=== PATIENT | male | born 1965 | race Caucasian/White ===

== ENCOUNTER 2022-10-09 14:48 | Inpatient (IN) | payer BC, OTHER ==
[2022-10-09 14:53] VITALS: BMI 25.1
[2022-10-09 18:38] LABS: BASO % 0.2 % (0-2.0); EOS % 0.1 % (0-4.5); HEMATOCRIT 29.9 % (35.4-49); HEMOGLOBIN 9.2 GM/dL (11.7-16.9); LYMPH % 17.7 % (8-40); MCHC 30.7 g/dl (32.0-35.9); MEAN CELL VOLUME 63.4 fl (80-96); MEAN PLT VOLUME 8.1 fl (7.5-11.1); MONO % 11.3 % (3.8-10.2); NEUT % 70.7 % (42.8-82.8); PLATELET COUNT 470 10^3/uL (134-434); RBC 4.72 M/mm3 (4.00-5.60); RDW 20.5 % (11.9-15.9); WHITE BLOOD COUNT 5.4 K/mm3 (4.0-10.0)
[2022-10-09 18:39] LABS: MCH 19.5 pg (25.7-33.7)
[2022-10-09 18:57] LABS: CALCIUM 8.4 mg/dL (8.5-10.1)
[2022-10-09 18:58] LABS: ALBUMIN 2.8 g/dl (3.4-5.0); BLOOD UREA NITROGEN 25.6 mg/dL (7-18)
[2022-10-09 19:01] LABS: CREATININE 0.8 mg/dL (0.55-1.3)
[2022-10-09 19:02] LABS: TOT PROT 6.1 g/dl (6.4-8.2)
[2022-10-09 19:03] LABS: BILIRUBIN,TOTAL 0.4 mg/dL (0.2-1)
[2022-10-09 20:00] LABS: ANISOCYTOSIS 2+; MACROCYTOSIS 1+; OVALOCYTE 1+
[2022-10-09 22:01] LABS: RETICULOCYTES 0.87 % (0.5-1.5)
[2022-10-09] MEDS ORDERED: METOPROLOL TARTRATE 5 MG/5 ML VIAL IVPUSH ONE (23:51)
[2022-10-09] MEDS ORDERED: metoPROLOL SUCCINATE 25 MG TAB.SR.24H (FP) PO ONE (23:52)
[2022-10-10] MEDS ORDERED: SODIUM CHLORIDE 1,000 ML IV SCH ×2 (00:45→19:03)
[2022-10-10] MEDS ORDERED: METOPROLOL TARTRATE 5 MG/5 ML VIAL IVPUSH ONE (03:17)
[2022-10-10 06:22] LABS: BASO % 0.5 % (0-2.0); EOS % 0.1 % (0-4.5); HEMATOCRIT 28.7 % (35.4-49); HEMOGLOBIN 8.9 GM/dL (11.7-16.9); LYMPH % 15.1 % (8-40); MEAN PLT VOLUME 7.7 fl (7.5-11.1); MONO % 11.9 % (3.8-10.2); NEUT % 72.4 % (42.8-82.8); PLATELET COUNT 456 10^3/uL (134-434); RBC 4.56 M/mm3 (4.00-5.60); RDW 20.4 % (11.9-15.9)
[2022-10-10 06:27] LABS: MCH 19.5 pg (25.7-33.7)
[2022-10-10 06:49] LABS: CALCIUM 7.9 mg/dL (8.5-10.1)
[2022-10-10 06:50] LABS: ALBUMIN 2.5 g/dl (3.4-5.0); BLOOD UREA NITROGEN 26.9 mg/dL (7-18); MAGNESIUM 1.9 mg/dL (1.8-2.4)
[2022-10-10 06:52] LABS: CREATININE 0.8 mg/dL (0.55-1.3)
[2022-10-10 06:53] LABS: PHOSPHOROUS 3.4 mg/dL (2.5-4.9)
[2022-10-10 06:54] LABS: BILIRUBIN,TOTAL 0.4 mg/dL (0.2-1); TOT PROT 5.6 g/dl (6.4-8.2)
[2022-10-10 09:01] LABS: PHOSPHOROUS 3.2 mg/dL (2.5-4.9)
[2022-10-10 09:56] LABS: ARTERIAL BLD GAS O2 SATURATION 97.5 % (95-98); ARTERIAL BLOOD GAS BASE EXCESS -2.7 mmol/L (-2-2); ARTERIAL BLOOD GAS PO2 89.5 mmHg (80-100); ARTERIAL BLOOD GAS pH 7.477 (7.350-7.450)
[2022-10-10 09:59] LABS: ALLENS TEST POSITIVE
[2022-10-10] MEDS ORDERED: metoPROLOL SUCCINATE 25 MG TAB.SR.24H (FP) PO ONE (11:31)
[2022-10-10] MEDS: metoPROLOL SUCCINATE 25 MG TAB.SR.24H (FP) PO SCH ×2 (11:57→21:35)
[2022-10-10 14:02] LABS: EPI CELLS 8 /uL (0-25.1); HYALINE CASTS 6 /uL (0-3.1); PH,URINE 5.5 (5.0-8.0); URINE APPEARANCE TURBID; URINE BACTERIA 9 /uL (0-1359); URINE BILIRUBIN NEGATIVE (NEGATIVE); URINE COLOR DK YELLOW; URINE GLUCOSE (UA) NEGATIVE (NEGATIVE); URINE KETONE 1+ (NEGATIVE); URINE LEUK ESTERASE NEGATIVE (NEGATIVE); URINE NITRITE NEGATIVE (NEGATIVE); URINE PROTEIN 1+ (NEGATIVE); URINE WBC 19 /uL (0-25.8)
[2022-10-10 14:34] LABS: URINE CRYSTALS CA OXALATE FEW /hpf; URINE RBC 107.7 /uL (0-23.9)
[2022-10-10] MEDS ORDERED: ACETAMINOPHEN 1000 MG/100 ML BAG IVPB ONE (21:16)
[2022-10-10] MEDS: PANTOPRAZOLE SODIUM 40 MG VIAL IVPUSH SCH (21:36)
[2022-10-10] MEDS: PIPERACILLIN/TAZOB 4.5 GM 4.5 GM in DEXTROSE 5%-WATER 100 ML IVPB SCH (21:37)
[2022-10-11] MEDS: PIPERACILLIN/TAZOB 4.5 GM 4.5 GM in DEXTROSE 5%-WATER 100 ML IVPB SCH ×3 (02:41→18:58)
[2022-10-11 08:27] LABS: HEMATOCRIT 28.5 % (35.4-49); HEMOGLOBIN 8.8 GM/dL (11.7-16.9); MCHC 30.9 g/dl (32.0-35.9); MEAN CELL VOLUME 63.9 fl (80-96); MEAN PLT VOLUME 8.1 fl (7.5-11.1); PLATELET COUNT 431 10^3/uL (134-434); RBC 4.45 M/mm3 (4.00-5.60); RDW 20.4 % (11.9-15.9); WHITE BLOOD COUNT 5.8 K/mm3 (4.0-10.0)
[2022-10-11 08:31] LABS: ALBUMIN 2.4 g/dl (3.4-5.0); BLOOD UREA NITROGEN 25.5 mg/dL (7-18); CALCIUM 8.1 mg/dL (8.5-10.1)
[2022-10-11 08:35] LABS: BILIRUBIN,TOTAL 0.5 mg/dL (0.2-1); TOT PROT 5.2 g/dl (6.4-8.2)
[2022-10-11 08:38] LABS: MCH 19.7 pg (25.7-33.7)
[2022-10-11] MEDS: PANTOPRAZOLE SODIUM 40 MG VIAL IVPUSH SCH (09:16)
[2022-10-11] MEDS ORDERED: MINERAL OIL ENEMA 133 ML ENEMA RC ONE (09:19)
[2022-10-11] MEDS: D5-NS + 20 MEQ KCL - 20 MEQ/1,000 ML INFUS.BAG IV SCH (09:24)
[2022-10-11] MEDS ORDERED: metoPROLOL SUCCINATE 25 MG TAB.SR.24H (FP) PO ONE (17:37)
[2022-10-11] MEDS ORDERED: HEPARIN NA (PORCINE) 5,000 UNITS/ML 1ML VIAL IVPUSH PRN (17:37)
[2022-10-11] MEDS ORDERED: metoPROLOL SUCCINATE 25 MG TAB.SR.24H (FP) PO SCH (17:42)
[2022-10-11] MEDS ORDERED: METOPROLOL TARTRATE 5 MG/5 ML VIAL IVPUSH PRN (17:50)
[2022-10-11] MEDS ORDERED: PIPERACILLIN/TAZOBACTAM 4.5 GM VIAL IVPB ONE (17:50)
[2022-10-11] MEDS ORDERED: IRON SUCROSE INJECTION 100 MG in SODIUM CHLORIDE 95 ML IVPB ONE (17:51)
[2022-10-11] MEDS: HEPARIN - 25,000 UNIT in SODIUM CHLORIDE 495 ML IV SCH (20:03)
[2022-10-11] MEDS: HEPARIN NA (PORCINE) 5,000 UNITS/ML 1ML VIAL IVPUSH PRN (20:15)
[2022-10-12] MEDS: PIPERACILLIN/TAZOB 4.5 GM 4.5 GM in DEXTROSE 5%-WATER 100 ML IVPB SCH ×2 (03:53→09:23)
[2022-10-12] MEDS: HEPARIN NA (PORCINE) 5,000 UNITS/ML 1ML VIAL IVPUSH PRN (04:30)
[2022-10-12] MEDS: HEPARIN - 25,000 UNIT in SODIUM CHLORIDE 495 ML IV SCH (04:30)
[2022-10-12 08:26] LABS: HEMOGLOBIN 9.6 GM/dL (11.7-16.9); MCHC 30.1 g/dl (32.0-35.9); MEAN CELL VOLUME 64.5 fl (80-96); MEAN PLT VOLUME 8.6 fl (7.5-11.1); PLATELET COUNT 506 10^3/uL (134-434); RBC 4.97 M/mm3 (4.00-5.60); WHITE BLOOD COUNT 6.9 K/mm3 (4.0-10.0)
[2022-10-12 08:44] LABS: MCH 19.4 pg (25.7-33.7)
[2022-10-12 09:01] LABS: ALBUMIN 2.6 g/dl (3.4-5.0)
[2022-10-12 09:02] LABS: BLOOD UREA NITROGEN 23.4 mg/dL (7-18)
[2022-10-12 09:04] LABS: PHOSPHOROUS 3.7 mg/dL (2.5-4.9)
[2022-10-12 09:05] LABS: CREATININE 1.2 mg/dL (0.55-1.3)
[2022-10-12 09:06] LABS: BILIRUBIN,TOTAL 0.5 mg/dL (0.2-1); TOT PROT 5.9 g/dl (6.4-8.2)
[2022-10-12] MEDS: PANTOPRAZOLE SODIUM 40 MG VIAL IVPUSH SCH (09:18)
[2022-10-12] MEDS ORDERED: DEXAMETHASONE SOD PHOSPHATE 4 MG/1 ML VIAL ONE ×2 (16:14→16:34)
[2022-10-12] MEDS ORDERED: LIDOCAINE HCL/PF 2% SDV 5ML VIAL ONE (16:14)
[2022-10-12] MEDS ORDERED: PROPOFOL 20 ML ONE (16:14)
[2022-10-12] MEDS ORDERED: ROCURONIUM BROMIDE 50 MG/5 ML SYRINGE ONE ×3 (16:14→18:35)
[2022-10-12] MEDS ORDERED: ONDANSETRON 4 MG/2 ML VIAL ONE (16:14)
[2022-10-12] MEDS ORDERED: HEPARIN NA (PORCINE) 5,000 UNITS/ML 1ML VIAL ONE (16:19)
[2022-10-12] MEDS ORDERED: PIPERACILLIN/TAZOBACTAM 3.375 GM VIAL IVPB ONE ×3 (16:20→16:32)
[2022-10-12] MEDS ORDERED: HEPARIN NA (PORCINE) 5,000 UNITS/ML 1ML VIAL SQ ONE (16:26)
[2022-10-12] MEDS ORDERED: ALBUMIN HUMAN 5% 250 ML IV SOLUTION IV ONE (16:30)
[2022-10-12] MEDS ORDERED: MIDAZOLAM HCL 2 MG/2 ML SINGLE DOSE VIAL ONE ×3 (16:31→19:13)
[2022-10-12] MEDS ORDERED: PHENYLEPHRINE HCL 10 MG/1 ML SINGLE DOSE VIAL ONE ×2 (16:32→17:13)
[2022-10-12] MEDS ORDERED: HYDROmorphone HCl 2 MG/ML VIAL ONE (16:34)
[2022-10-12] MEDS ORDERED: ALBUMIN HUMAN 5% 500 ML IV SOLUTION IV ONE (17:00)
[2022-10-12] MEDS ORDERED: CALCIUM CHLORIDE 1 GM/10 ML *DISP.SYRIN ONE (18:24)
[2022-10-12] MEDS ORDERED: FENTANYL NS IVPB 500 MCG/100 ML BAG IVPB ONE (20:09)
[2022-10-12] MEDS ORDERED: LACTATED RINGERS SOLUTION 1,000 ML/1,000 ML INFUS.BAG IV SCH (20:15)
[2022-10-12] MEDS ORDERED: FENTANYL NS IVPB 500 MCG/100 ML BAG IVPB SCH ×2 (20:30→21:30)
[2022-10-12] MEDS: PHENYLEPHRINE NS PREMIX 50,000 MCG/500 ML BAG IVPB SCH (20:30)
[2022-10-12] MEDS ORDERED: METOPROLOL TARTRATE 5 MG/5 ML VIAL IVPUSH PRN (20:43)
[2022-10-12 20:50] LABS: BASO % 0.1 % (0-2.0); EOS % 0.1 % (0-4.5); HEMOGLOBIN 9.6 GM/dL (11.7-16.9); LYMPH % 9.2 % (8-40); MCH 21.8 pg (25.7-33.7); MCHC 31.8 g/dl (32.0-35.9); MEAN CELL VOLUME 68.6 fl (80-96); MEAN PLT VOLUME 7.5 fl (7.5-11.1); MONO % 4.3 % (3.8-10.2); NEUT % 86.3 % (42.8-82.8); PLATELET COUNT 370 10^3/uL (134-434); RBC 4.37 M/mm3 (4.00-5.60); WHITE BLOOD COUNT 2.7 K/mm3 (4.0-10.0)
[2022-10-12] MEDS ORDERED: PROPOFOL 1,000,000 MCG/100 ML VIAL ONE (20:57)
[2022-10-12] MEDS ORDERED: PIPERACILLIN/TAZOB 4.5 GM 4.5 GM in DEXTROSE 5%-WATER 100 ML IVPB SCH (21:00)
[2022-10-12] MEDS ORDERED: PROPOFOL 1,000,000 MCG/100 ML VIAL IVPB SCH (21:15)
[2022-10-12 21:21] LABS: ANISOCYTOSIS 3+; MACROCYTOSIS 0; OVALOCYTE 1+; TARGET CELLS 1+
[2022-10-12] MEDS ORDERED: CHLORHEXIDINE GLUCONATE 4% CLEANSER FOR DECOLONIZATION TP SCH (22:00)
[2022-10-12] MEDS ORDERED: MUPIROCIN 2% TOPICAL OINTMENT FOR DECOLONIZATION NS SCH (22:00)
[2022-10-12 22:15] LABS: CALCIUM 7.2 mg/dL (8.5-10.1)
[2022-10-12 22:16] LABS: BLOOD UREA NITROGEN 14.9 mg/dL (7-18)
[2022-10-12 22:19] LABS: CREATININE 0.6 mg/dL (0.55-1.3)
[2022-10-12] MEDS: MUPIROCIN 2% TOPICAL OINTMENT FOR DECOLONIZATION NS SCH (22:30)
[2022-10-12] MEDS: CHLORHEXIDINE GLUCONATE 4% CLEANSER FOR DECOLONIZATION TP SCH (22:30)
[2022-10-12] MEDS: LACTATED RINGERS SOLUTION 1,000 ML IV SCH (22:30)
[2022-10-13] MEDS: PIPERACILLIN/TAZOB 4.5 GM 4.5 GM in DEXTROSE 5%-WATER 100 ML IVPB SCH ×4 (03:07→16:59)
[2022-10-13 07:29] LABS: HEMATOCRIT 37.4 % (35.4-49); HEMOGLOBIN 11.9 GM/dL (11.7-16.9); MCH 21.6 pg (25.7-33.7); MCHC 31.7 g/dl (32.0-35.9); MEAN CELL VOLUME 67.9 fl (80-96); MEAN PLT VOLUME 8.8 fl (7.5-11.1); PLATELET COUNT 428 10^3/uL (134-434); RDW 23.8 % (11.9-15.9); WHITE BLOOD COUNT 2.6 K/mm3 (4.0-10.0)
[2022-10-13 07:41] LABS: ARTERIAL BLD GAS O2 SATURATION 98.8 % (95-98); ARTERIAL BLOOD GAS BASE EXCESS -4.5 mmol/L (-2-2); ARTERIAL BLOOD GAS PO2 139.1 mmHg (80-100); ARTERIAL BLOOD GAS pH 7.393 (7.350-7.450)
[2022-10-13 07:43] LABS: INR 1.38 (0.83-1.09)
[2022-10-13 07:45] LABS: VENT MODE A/C; VENT RATE 12
[2022-10-13 07:48] LABS: ACTIVATED PTT 29.5 SECONDS (25.2-36.5)
[2022-10-13 07:51] LABS: CALCIUM 7.4 mg/dL (8.5-10.1)
[2022-10-13 07:52] LABS: MAGNESIUM 1.5 mg/dL (1.8-2.4)
[2022-10-13 07:54] LABS: BLOOD UREA NITROGEN 16.7 mg/dL (7-18)
[2022-10-13 07:55] LABS: CREATININE 0.8 mg/dL (0.55-1.3); PHOSPHOROUS 3.9 mg/dL (2.5-4.9)
[2022-10-13] MEDS ORDERED: MAGNESIUM 1GM/D5W - 1 GM/100 ML IVPB IVPB ONE (09:15)
[2022-10-13] MEDS: HEPARIN NA (PORCINE) 5,000 UNITS/ML 1ML VIAL SQ SCH ×2 (09:49→21:54)
[2022-10-13] MEDS: MUPIROCIN 2% TOPICAL OINTMENT FOR DECOLONIZATION NS SCH ×2 (09:49→21:54)
[2022-10-13] MEDS: PANTOPRAZOLE SODIUM 40 MG VIAL IVPUSH SCH (09:49)
[2022-10-13] MEDS ORDERED: ONDANSETRON 4 MG/2 ML VIAL IVPUSH PRN (11:03)
[2022-10-13] MEDS ORDERED: LACTATED RINGERS SOLUTION 1000 ML INFUS.BAG IV ONE (11:37)
[2022-10-13] MEDS: ACETAMINOPHEN 1000 MG/100 ML BAG IVPB SCH ×3 (11:47→23:40)
[2022-10-13] MEDS: D5-NS + 20 MEQ KCL - 20 MEQ/1,000 ML INFUS.BAG IV SCH (13:32)
[2022-10-13 16:49] LABS: HEMATOCRIT 35.9 % (35.4-49); HEMOGLOBIN 11.3 GM/dL (11.7-16.9); MCH 21.8 pg (25.7-33.7); MCHC 31.6 g/dl (32.0-35.9); MEAN CELL VOLUME 69.2 fl (80-96); PLATELET COUNT 322 10^3/uL (134-434)
[2022-10-13 17:21] LABS: LACTIC ACID 6.8 mmol/L (0.4-2.0)
[2022-10-13] MEDS ORDERED: SODIUM CHLORIDE 500 ML IV STA (18:09)
[2022-10-13] MEDS: CHLORHEXIDINE GLUCONATE 4% CLEANSER FOR DECOLONIZATION TP SCH (21:54)
[2022-10-13] MEDS: LACTATED RINGERS SOLUTION 1,000 ML IV SCH (23:30)
[2022-10-14 00:49] LABS: LACTIC ACID 3.8 mmol/L (0.4-2.0)
[2022-10-14] MEDS ORDERED: LACTATED RINGERS SOLUTION 1000 ML INFUS.BAG IV ONE ×2 (02:52→08:30)
[2022-10-14] MEDS: PIPERACILLIN/TAZOB 4.5 GM 4.5 GM in DEXTROSE 5%-WATER 100 ML IVPB SCH ×2 (03:17→09:15)
[2022-10-14] MEDS: PHENYLEPHRINE NS PREMIX 50,000 MCG/500 ML BAG IVPB SCH ×3 (04:55→20:15)
[2022-10-14] MEDS: ACETAMINOPHEN 1000 MG/100 ML BAG IVPB SCH (05:40)
[2022-10-14 07:25] LABS: HEMATOCRIT 34.9 % (35.4-49); HEMOGLOBIN 11.2 GM/dL (11.7-16.9); MCH 21.8 pg (25.7-33.7); MEAN CELL VOLUME 68.1 fl (80-96); MEAN PLT VOLUME 8.6 fl (7.5-11.1); PLATELET COUNT 302 10^3/uL (134-434); RBC 5.13 M/mm3 (4.00-5.60); RDW 24.8 % (11.9-15.9); WHITE BLOOD COUNT 3.1 K/mm3 (4.0-10.0)
[2022-10-14 07:32] LABS: INR 2.39 (0.83-1.09); PROTHROMBIN TIME (PATIENT) 27.5 SEC (9.7-13.0)
[2022-10-14 07:34] LABS: ACTIVATED PTT 37.6 SECONDS (25.2-36.5)
[2022-10-14 07:44] LABS: CHLORIDE 112 mmol/L (98-107); SODIUM 144 mmol/L (136-145)
[2022-10-14 07:48] LABS: GLUCOSE,RANDOM 70 mg/dL (74-106)
[2022-10-14 07:50] LABS: ANION GAP 14 MMOL/L (8-16); BLOOD UREA NITROGEN 30.2 mg/dL (7-18); CO2 17 mmol/L (21-32); PHOSPHOROUS 5.5 mg/dL (2.5-4.9)
[2022-10-14 07:51] LABS: CREATININE 2.4 mg/dL (0.55-1.3)
[2022-10-14 08:07] LABS: CALCIUM 6.9 mg/dL (8.5-10.1)
[2022-10-14] MEDS: HEPARIN NA (PORCINE) 5,000 UNITS/ML 1ML VIAL SQ SCH (09:15)
[2022-10-14] MEDS: PANTOPRAZOLE SODIUM 40 MG VIAL IVPUSH SCH (09:15)
[2022-10-14] MEDS: LACTATED RINGERS SOLUTION 1,000 ML IV SCH (09:15)
[2022-10-14] MEDS: MUPIROCIN 2% TOPICAL OINTMENT FOR DECOLONIZATION NS SCH ×2 (09:16→22:50)
[2022-10-14] MEDS: AMINO ACIDS 4.25%/D5W 1,000 ML IV SCH (11:01)
[2022-10-14 12:44] LABS: ANISOCYTOSIS 1+; MACROCYTOSIS 0
[2022-10-14] MEDS ORDERED: CALCIUM GLUCONATE 10% - 1,000 MG/10 ML VIAL IVPB ONE (13:39)
[2022-10-14] MEDS ORDERED: HEPARIN NA (PORCINE) 5,000 UNITS/ML 1ML VIAL IVPUSH PRN ×2 (14:19)
[2022-10-14] MEDS: ALBUMIN HUMAN 25% 12.5 GM/50 ML VIAL IV SCH ×4 (14:29→15:52)
[2022-10-14 14:58] LABS: EPI CELLS >36 /uL (0-25.1); HYALINE CASTS 2 /uL (0-3.1); URINE APPEARANCE TURBID; URINE BILIRUBIN 1+ (NEGATIVE); URINE COLOR DK YELLOW; URINE GLUCOSE (UA) NEGATIVE (NEGATIVE); URINE KETONE NEGATIVE (NEGATIVE); URINE LEUK ESTERASE TRACE (NEGATIVE); URINE NITRITE POSITIVE (NEGATIVE); URINE PROTEIN 2+ (NEGATIVE); URINE WBC 435 /uL (0-25.8)
[2022-10-14] MEDS: PIPERACILLIN/TAZOB 2.25 GM 2.25 GM in DEXTROSE 5%-WATER - 50 ML IVPB SCH ×2 (15:02→22:50)
[2022-10-14] MEDS: LACTATED RINGERS SOLUTION 1,000 ML/1,000 ML INFUS.BAG IV SCH (15:03)
[2022-10-14] MEDS: HEPARIN - 25,000 UNIT in SODIUM CHLORIDE 495 ML IV SCH (15:16)
[2022-10-14 15:18] LABS: URINE BACTERIA 3 /uL (0-1359)
[2022-10-14] MEDS ORDERED: FAT EMULSIONS 20% 250 ML PREMIX INFUS.BAG IV SCH (22:00)
[2022-10-14 22:13] LABS: CHLORIDE 114 mmol/L (98-107); SODIUM 143 mmol/L (136-145)
[2022-10-14 22:16] LABS: ANION GAP 9 MMOL/L (8-16); BLOOD UREA NITROGEN 42.5 mg/dL (7-18); CO2 20 mmol/L (21-32); GLUCOSE,RANDOM 95 mg/dL (74-106)
[2022-10-14 22:19] LABS: SGOT/AST 23 U/L (15-37)
[2022-10-14 22:20] LABS: CREATININE 2.8 mg/dL (0.55-1.3)
[2022-10-14 22:21] LABS: BILIRUBIN,TOTAL 0.8 mg/dL (0.2-1)
[2022-10-14 22:24] LABS: ALK PHOS 24 U/L (45-117); CALCIUM 6.8 mg/dL (8.5-10.1); LACTIC ACID 3.5 mmol/L (0.4-2.0); SGPT/ALT 10 U/L (13-61); TOT PROT 3.8 g/dl (6.4-8.2)
[2022-10-14] MEDS ORDERED: CALCIUM GLUC IN NACL, ISO-OSM 1 GM/50 ML BAG IVPB ONE (22:29)
[2022-10-14] MEDS: FAT EMULSION/OLIVE/SOY/PHOSPHO 250 ML IV SCH (22:49)
[2022-10-14] MEDS: CHLORHEXIDINE GLUCONATE 4% CLEANSER FOR DECOLONIZATION TP SCH (22:51)
[2022-10-15] MEDS: PIPERACILLIN/TAZOB 2.25 GM 2.25 GM in DEXTROSE 5%-WATER - 50 ML IVPB SCH ×4 (03:22→20:48)
[2022-10-15] MEDS: PHENYLEPHRINE NS PREMIX 50,000 MCG/500 ML BAG IVPB SCH ×2 (04:46→20:35)
[2022-10-15 07:17] LABS: HEMATOCRIT 29.8 % (35.4-49); HEMOGLOBIN 9.4 GM/dL (11.7-16.9); MCH 21.6 pg (25.7-33.7); MCHC 31.5 g/dl (32.0-35.9); MEAN CELL VOLUME 68.6 fl (80-96); MEAN PLT VOLUME 8.7 fl (7.5-11.1); PLATELET COUNT 225 10^3/uL (134-434); RBC 4.34 M/mm3 (4.00-5.60); RDW 24.7 % (11.9-15.9); WHITE BLOOD COUNT 2.8 K/mm3 (4.0-10.0)
[2022-10-15 07:34] LABS: INR 1.96 (0.83-1.09); PROTHROMBIN TIME (PATIENT) 22.6 SEC (9.7-13.0)
[2022-10-15 07:36] LABS: ACTIVATED PTT 69.8 SECONDS (25.2-36.5)
[2022-10-15 07:53] LABS: CHLORIDE 112 mmol/L (98-107); SODIUM 144 mmol/L (136-145)
[2022-10-15 08:08] LABS: ALBUMIN 1.8 g/dl (3.4-5.0); ANION GAP 11 MMOL/L (8-16); CO2 20 mmol/L (21-32); GLUCOSE,RANDOM 112 mg/dL (74-106); MAGNESIUM 2.2 mg/dL (1.8-2.4)
[2022-10-15 08:10] LABS: PHOSPHOROUS 5.6 mg/dL (2.5-4.9)
[2022-10-15 08:11] LABS: BILIRUBIN,DIRECT 0.5 mg/dL (0.0-0.2)
[2022-10-15 08:12] LABS: BILIRUBIN,TOTAL 0.8 mg/dL (0.2-1); TOT PROT 3.7 g/dl (6.4-8.2)
[2022-10-15 08:13] LABS: ALK PHOS 25 U/L (45-117); CREATININE 2.7 mg/dL (0.55-1.3); SGOT/AST 27 U/L (15-37)
[2022-10-15 08:14] LABS: SGPT/ALT 11 U/L (13-61)
[2022-10-15 08:27] LABS: CALCIUM 6.9 mg/dL (8.5-10.1)
[2022-10-15] MEDS ORDERED: ALBUMIN HUMAN 25% 12.5 GM/50 ML VIAL IV SCH ×2 (09:00→13:00)
[2022-10-15] MEDS: ALBUMIN HUMAN 25% 12.5 GM/50 ML VIAL IV SCH ×4 (09:35→10:46)
[2022-10-15] MEDS: PANTOPRAZOLE SODIUM 40 MG VIAL IVPUSH SCH (09:46)
[2022-10-15] MEDS: MUPIROCIN 2% TOPICAL OINTMENT FOR DECOLONIZATION NS SCH ×2 (09:46→22:14)
[2022-10-15] MEDS: LACTATED RINGERS SOLUTION 1,000 ML/1,000 ML INFUS.BAG IV SCH ×2 (09:55→14:33)
[2022-10-15] MEDS: AMINO ACIDS 4.25%/D5W 1,000 ML IV SCH (10:46)
[2022-10-15] MEDS: HEPARIN - 25,000 UNIT in SODIUM CHLORIDE 495 ML IV SCH (15:10)
[2022-10-15] MEDS: FAT EMULSION/OLIVE/SOY/PHOSPHO 250 ML IV SCH (22:14)
[2022-10-15] MEDS: CHLORHEXIDINE GLUCONATE 4% CLEANSER FOR DECOLONIZATION TP SCH (22:15)
[2022-10-16] MEDS: HYDROmorphone HCl 2 MG/ML VIAL IVPUSH PRN ×2 (00:20→15:20)
[2022-10-16] MEDS: PIPERACILLIN/TAZOB 2.25 GM 2.25 GM in DEXTROSE 5%-WATER - 50 ML IVPB SCH ×4 (03:18→21:29)
[2022-10-16 07:28] LABS: HEMATOCRIT 27.2 % (35.4-49); HEMOGLOBIN 8.6 GM/dL (11.7-16.9); MCH 21.7 pg (25.7-33.7); MCHC 31.7 g/dl (32.0-35.9); MEAN CELL VOLUME 68.3 fl (80-96); MEAN PLT VOLUME 8.7 fl (7.5-11.1); PLATELET COUNT 139 10^3/uL (134-434); RBC 3.99 M/mm3 (4.00-5.60); RDW 24.7 % (11.9-15.9); WHITE BLOOD COUNT 2.5 K/mm3 (4.0-10.0)
[2022-10-16 07:45] LABS: BLOOD UREA NITROGEN 52.6 mg/dL (7-18); MAGNESIUM 2.5 mg/dL (1.8-2.4)
[2022-10-16 07:48] LABS: PHOSPHOROUS 3.9 mg/dL (2.5-4.9)
[2022-10-16 07:49] LABS: TOT PROT 4.1 g/dl (6.4-8.2)
[2022-10-16 07:50] LABS: BILIRUBIN,TOTAL 0.7 mg/dL (0.2-1)
[2022-10-16 09:10] LABS: ANISOCYTOSIS 0; MACROCYTOSIS 0
[2022-10-16] MEDS: AMINO ACIDS 4.25%/D5W 1,000 ML IV SCH (10:01)
[2022-10-16] MEDS: PANTOPRAZOLE SODIUM 40 MG VIAL IVPUSH SCH (10:03)
[2022-10-16] MEDS: MUPIROCIN 2% TOPICAL OINTMENT FOR DECOLONIZATION NS SCH ×2 (10:04→21:30)
[2022-10-16] MEDS ORDERED: LACTATED RINGERS SOLUTION 1,000 ML/1,000 ML INFUS.BAG IV SCH (11:30)
[2022-10-16] MEDS: HEPARIN - 25,000 UNIT in SODIUM CHLORIDE 495 ML IV SCH (17:54)
[2022-10-16] MEDS: PHENYLEPHRINE NS PREMIX 50,000 MCG/500 ML BAG IVPB SCH (20:15)
[2022-10-16] MEDS: CHLORHEXIDINE GLUCONATE 4% CLEANSER FOR DECOLONIZATION TP SCH (21:30)
[2022-10-16] MEDS: FAT EMULSION/OLIVE/SOY/PHOSPHO 250 ML IV SCH (22:45)
[2022-10-17 02:12] LABS: INR 1.37 (0.83-1.09); PROTHROMBIN TIME (PATIENT) 15.8 SEC (9.7-13.0)
[2022-10-17 02:15] LABS: ACTIVATED PTT 39.8 SECONDS (25.2-36.5)
[2022-10-17] MEDS: PIPERACILLIN/TAZOB 2.25 GM 2.25 GM in DEXTROSE 5%-WATER - 50 ML IVPB SCH ×4 (03:19→20:35)
[2022-10-17 07:09] LABS: HEMATOCRIT 26.3 % (35.4-49); HEMOGLOBIN 8.3 GM/dL (11.7-16.9); MCH 21.2 pg (25.7-33.7); MCHC 31.5 g/dl (32.0-35.9); MEAN CELL VOLUME 67.3 fl (80-96); PLATELET COUNT 111 10^3/uL (134-434); RDW 25.4 % (11.9-15.9); WHITE BLOOD COUNT 2.5 K/mm3 (4.0-10.0)
[2022-10-17 07:34] LABS: CALCIUM 7.1 mg/dL (8.5-10.1)
[2022-10-17 07:35] LABS: ALBUMIN 1.8 g/dl (3.4-5.0); BLOOD UREA NITROGEN 62.7 mg/dL (7-18)
[2022-10-17 07:36] LABS: INR 1.26 (0.83-1.09); PROTHROMBIN TIME (PATIENT) 14.6 SEC (9.7-13.0)
[2022-10-17 07:38] LABS: CREATININE 1.6 mg/dL (0.55-1.3)
[2022-10-17 07:39] LABS: ACTIVATED PTT 40.4 SECONDS (25.2-36.5)
[2022-10-17 07:40] LABS: BILIRUBIN,TOTAL 0.5 mg/dL (0.2-1); TOT PROT 3.9 g/dl (6.4-8.2)
[2022-10-17] MEDS ORDERED: KCL 10 MEQ IVPB 10 MEQ/100 ML INFUS.BAG IVPB SCH (08:00)
[2022-10-17 08:37] LABS: MAGNESIUM 2.5 mg/dL (1.8-2.4)
[2022-10-17 08:40] LABS: PHOSPHOROUS 2.2 mg/dL (2.5-4.9)
[2022-10-17] MEDS: PANTOPRAZOLE SODIUM 40 MG VIAL IVPUSH SCH (09:43)
[2022-10-17] MEDS: MUPIROCIN 2% TOPICAL OINTMENT FOR DECOLONIZATION NS SCH (09:45)
[2022-10-17] MEDS ORDERED: FUROSEMIDE 40 MG/4 ML INJECTABLE VIAL IVPUSH ONE ×2 (09:50→15:28)
[2022-10-17] MEDS ORDERED: POTASSIUM PHOSPHATE 30 MM in DEXTROSE 5%-WATER - 250 ML IVPB ONE (10:00)
[2022-10-17] MEDS: AMINO ACIDS 4.25%/D5W 1,000 ML IV SCH (11:07)
[2022-10-17] MEDS ORDERED: METOPROLOL TARTRATE 5 MG/5 ML VIAL IVPUSH ONE (12:05)
[2022-10-17] MEDS ORDERED: METOPROLOL TARTRATE 5 MG/5 ML VIAL IVPUSH PRN (12:06)
[2022-10-17] MEDS: KCL 10 MEQ IVPB 10 MEQ/100 ML INFUS.BAG IVPB SCH ×3 (14:18→15:30)
[2022-10-17] MEDS ORDERED: ALBUMIN HUMAN 25% 100 ML VIAL IV ONE (15:27)
[2022-10-17] MEDS ORDERED: OXYMETAZOLINE 0.05% NASAL SOLUTION 15 ML BOTTLE NS ONE (15:48)
[2022-10-17 16:15] LABS: INR 1.31 (0.83-1.09); PROTHROMBIN TIME (PATIENT) 15.1 SEC (9.7-13.0)
[2022-10-17 16:18] LABS: ACTIVATED PTT 37.1 SECONDS (25.2-36.5)
[2022-10-17] MEDS: PHENYLEPHRINE NS PREMIX 50,000 MCG/500 ML BAG IVPB SCH (20:35)
[2022-10-17] MEDS: HYDROmorphone HCl 2 MG/ML VIAL IVPUSH PRN (21:04)
[2022-10-17] MEDS: CHLORHEXIDINE GLUCONATE 4% CLEANSER FOR DECOLONIZATION TP SCH (21:37)
[2022-10-17] MEDS: FAT EMULSION/OLIVE/SOY/PHOSPHO 250 ML IV SCH (21:37)
[2022-10-17 22:20] LABS: BLOOD UREA NITROGEN 66.8 mg/dL (7-18); CALCIUM 7.1 mg/dL (8.5-10.1)
[2022-10-17 22:24] LABS: CREATININE 1.7 mg/dL (0.55-1.3)
[2022-10-18] MEDS: PIPERACILLIN/TAZOB 2.25 GM 2.25 GM in DEXTROSE 5%-WATER - 50 ML IVPB SCH ×4 (03:05→21:11)
[2022-10-18 06:48] LABS: HEMATOCRIT 25.1 % (35.4-49); HEMOGLOBIN 8.1 GM/dL (11.7-16.9); MCH 21.7 pg (25.7-33.7); MCHC 32.3 g/dl (32.0-35.9); MEAN CELL VOLUME 67.2 fl (80-96); MEAN PLT VOLUME 9.3 fl (7.5-11.1); PLATELET COUNT 93 10^3/uL (134-434); RBC 3.73 M/mm3 (4.00-5.60); RDW 25.3 % (11.9-15.9); WHITE BLOOD COUNT 5.2 K/mm3 (4.0-10.0)
[2022-10-18] MEDS: PANTOPRAZOLE SODIUM 40 MG VIAL IVPUSH SCH (09:04)
[2022-10-18] MEDS: AMINO ACIDS 4.25%/D5W 1,000 ML IV SCH (09:05)
[2022-10-18] MEDS ORDERED: FENTANYL CITRATE/PF 50 MCG/ML VIAL ONE (09:10)
[2022-10-18] MEDS ORDERED: MIDAZOLAM HCL 2 MG/2 ML SINGLE DOSE VIAL ONE (09:10)
[2022-10-18] MEDS ORDERED: LACTATED RINGERS SOLUTION 1,000 ML/1,000 ML INFUS.BAG IV SCH (11:30)
[2022-10-18] MEDS ORDERED: ALBUMIN HUMAN 25% 100 ML VIAL IV ONE (12:00)
[2022-10-18] MEDS: ALBUMIN HUMAN 25% 12.5 GM/50 ML VIAL IV SCH ×2 (14:06→14:07)
[2022-10-18] MEDS ORDERED: ALBUMIN HUMAN 5% 250 ML IV SOLUTION IV ONE (14:45)
[2022-10-18 15:01] LABS: BF WBC & OTHER NUCLEATED CELLS 13582 /mm3
[2022-10-18 15:44] LABS: BODY FLUID MACROPHAGES 5 %; BODY FLUID MESOTHELIAL 1 %
[2022-10-18] MEDS ORDERED: LACTATED RINGERS SOLUTION 1000 ML INFUS.BAG IV ONE (16:03)
[2022-10-18 17:17] LABS: CALCIUM 7.3 mg/dL (8.5-10.1)
[2022-10-18 17:18] LABS: BLOOD UREA NITROGEN 69.7 mg/dL (7-18)
[2022-10-18 17:21] LABS: CREATININE 1.4 mg/dL (0.55-1.3)
[2022-10-18] MEDS: KCL 10 MEQ IVPB 10 MEQ/100 ML INFUS.BAG IVPB SCH ×3 (19:26→21:07)
[2022-10-18] MEDS ORDERED: NOREPINEPHRINE BITARTRATE 4 MG/4 ML ML IV ONE (21:15)
[2022-10-18] MEDS ORDERED: NOREPINEPHRINE BITARTRATE 16,000 MCG in SODIUM CHLORIDE 484 ML IV SCH (21:15)
[2022-10-18] MEDS: CHLORHEXIDINE GLUCONATE 4% CLEANSER FOR DECOLONIZATION TP SCH (21:25)
[2022-10-18] MEDS ORDERED: dilTIAZem HCL 25 MG/5 ML - 5 ML VIAL ONE (22:53)
[2022-10-18] MEDS ORDERED: SEVOFLURANE 250 ML BTL ONE (22:55)
[2022-10-18] MEDS ORDERED: ONDANSETRON 4 MG/2 ML VIAL ONE (22:56)
[2022-10-18] MEDS ORDERED: LIDOCAINE HCL/PF 2% SDV 5ML VIAL ONE (22:56)
[2022-10-18] MEDS ORDERED: PROPOFOL 20 ML ONE (22:56)
[2022-10-18] MEDS ORDERED: DEXAMETHASONE SOD PHOSPHATE 4 MG/1 ML VIAL ONE (22:56)
[2022-10-18] MEDS ORDERED: ROCURONIUM BROMIDE 50 MG/5 ML SYRINGE ONE (22:56)
[2022-10-18] MEDS: NOREPINEPHRINE 0.9 % NACL 8 MG/250 ML BAG IVPB SCH (23:04)
[2022-10-19] MEDS ORDERED: MIDAZOLAM HCL 2 MG/2 ML SINGLE DOSE VIAL ONE ×3 (00:07→01:33)
[2022-10-19] MEDS ORDERED: CALCIUM CHLORIDE 1 GM/10 ML *DISP.SYRIN ONE (00:17)
[2022-10-19] MEDS ORDERED: ROCURONIUM BROMIDE 50 MG/5 ML SYRINGE ONE (00:33)
[2022-10-19] MEDS ORDERED: VASOPRESSIN 20 UNITS/ML VIAL IV ONE (00:36)
[2022-10-19] MEDS ORDERED: FENTANYL NS IVPB 500 MCG/100 ML BAG IVPB ONE (02:34)
[2022-10-19] MEDS ORDERED: FENTANYL CITRATE/PF 50 MCG/ML VIAL IVPUSH PRN (02:38)
[2022-10-19] MEDS ORDERED: ACETAMINOPHEN 1000 MG/100 ML BAG IVPB PRN (02:40)
[2022-10-19] MEDS: NOREPINEPHRINE 0.9 % NACL 8 MG/250 ML BAG IVPB SCH ×2 (02:50→21:03)
[2022-10-19] MEDS: FAT EMULSION/OLIVE/SOY/PHOSPHO 250 ML IV SCH ×2 (03:07→21:29)
[2022-10-19] MEDS: PIPERACILLIN/TAZOB 2.25 GM 2.25 GM in DEXTROSE 5%-WATER - 50 ML IVPB SCH ×4 (03:09→21:29)
[2022-10-19 07:28] LABS: ACTIVATED PTT 36.2 SECONDS (25.2-36.5)
[2022-10-19 07:35] LABS: CALCIUM 7.3 mg/dL (8.5-10.1)
[2022-10-19 07:36] LABS: BLOOD UREA NITROGEN 65.9 mg/dL (7-18); MAGNESIUM 2.5 mg/dL (1.8-2.4); PHOSPHOROUS 3.9 mg/dL (2.5-4.9)
[2022-10-19 07:37] LABS: BILIRUBIN,TOTAL 0.6 mg/dL (0.2-1); TOT PROT 4.2 g/dl (6.4-8.2)
[2022-10-19 07:39] LABS: CREATININE 1.1 mg/dL (0.55-1.3)
[2022-10-19 07:40] LABS: HEMATOCRIT 32.2 % (35.4-49); HEMOGLOBIN 10.2 GM/dL (11.7-16.9); MCH 23.1 pg (25.7-33.7); MCHC 31.6 g/dl (32.0-35.9); PLATELET COUNT 110 10^3/uL (134-434); RBC 4.41 M/mm3 (4.00-5.60); RDW 26.2 % (11.9-15.9)
[2022-10-19 07:45] LABS: ALBUMIN 2.4 g/dl (3.4-5.0)
[2022-10-19] MEDS ORDERED: SODIUM CHLORIDE 1,000 ML IV STA (08:23)
[2022-10-19 08:40] LABS: INR 1.62 (0.83-1.09); PROTHROMBIN TIME (PATIENT) 18.7 SEC (9.7-13.0)
[2022-10-19] MEDS: PANTOPRAZOLE SODIUM 40 MG VIAL IVPUSH SCH (09:00)
[2022-10-19] MEDS ORDERED: AMINO ACIDS 4.25%/D5W 1,000 ML IV SCH (09:45)
[2022-10-19] MEDS: MUPIROCIN 2% TOPICAL OINTMENT FOR DECOLONIZATION NS SCH ×2 (09:58→21:29)
[2022-10-19] MEDS ORDERED: HEPARIN NA (PORCINE) 5,000 UNITS/ML 1ML VIAL SQ SCH (10:00)
[2022-10-19 10:12] LABS: PLATELET ESTIMATE DECREASED; TARGET CELLS 1+
[2022-10-19] MEDS: AMINO ACIDS 4.25%/D5W 1,000 ML IV SCH (10:53)
[2022-10-19] MEDS: ZINC OXIDE/PANTHENOL/VITAMIN E 56 GM TUBE TP SCH (14:09)
[2022-10-19] MEDS ORDERED: DIGOXIN 0.5 MG/2 ML AMPUL IVPUSH ONE ×2 (15:18→23:00)
[2022-10-19] MEDS: HYDROmorphone HCl 2 MG/ML VIAL IVPUSH PRN (15:47)
[2022-10-19] MEDS ORDERED: SODIUM CHLORIDE IV ONE (16:00)
[2022-10-19] MEDS ORDERED: POTASSIUM CHLORIDE IV ONE (16:00)
[2022-10-19] MEDS ORDERED: [UNRECOGNIZED DRUG - OTHER] IV ONE (16:00)
[2022-10-19] MEDS: FLUCONAZOLE 200 MG/NS 100 ML IVPB SCH (17:32)
[2022-10-19] MEDS: CHLORHEXIDINE GLUCONATE 4% CLEANSER FOR DECOLONIZATION TP SCH (21:29)
[2022-10-20] MEDS: PIPERACILLIN/TAZOB 2.25 GM 2.25 GM in DEXTROSE 5%-WATER - 50 ML IVPB SCH ×4 (02:29→21:09)
[2022-10-20] MEDS: HYDROmorphone HCl 2 MG/ML VIAL IVPUSH PRN (02:57)
[2022-10-20] MEDS ORDERED: DIGOXIN 0.5 MG/2 ML AMPUL IVPUSH ONE (06:00)
[2022-10-20 07:06] LABS: HEMATOCRIT 30.2 % (35.4-49); HEMOGLOBIN 9.7 GM/dL (11.7-16.9); MCH 23.4 pg (25.7-33.7); MEAN PLT VOLUME 8.9 fl (7.5-11.1); PLATELET COUNT 111 10^3/uL (134-434); RBC 4.14 M/mm3 (4.00-5.60); RDW 25.5 % (11.9-15.9); WHITE BLOOD COUNT 7.6 K/mm3 (4.0-10.0)
[2022-10-20 07:24] LABS: BLOOD UREA NITROGEN 63.9 mg/dL (7-18); CALCIUM 7.3 mg/dL (8.5-10.1)
[2022-10-20 07:29] LABS: BILIRUBIN,TOTAL 0.3 mg/dL (0.2-1); TOT PROT 3.8 g/dl (6.4-8.2)
[2022-10-20 07:34] LABS: ALBUMIN 1.8 g/dl (3.4-5.0)
[2022-10-20] MEDS ORDERED: ONDANSETRON 4 MG/2 ML VIAL IVPUSH PRN (08:42)
[2022-10-20] MEDS ORDERED: NOREPINEPHRINE 0.9 % NACL 8 MG/250 ML BAG IVPB SCH (08:42)
[2022-10-20] MEDS ORDERED: HYDROmorphone HCl 2 MG/ML VIAL IVPUSH PRN (08:42)
[2022-10-20] MEDS ORDERED: METOPROLOL TARTRATE 5 MG/5 ML VIAL IVPUSH PRN (08:42)
[2022-10-20] MEDS: FLUCONAZOLE 200 MG/NS 100 ML IVPB SCH (09:12)
[2022-10-20] MEDS: PANTOPRAZOLE SODIUM 40 MG VIAL IVPUSH SCH (09:25)
[2022-10-20 11:09] LABS: BODY FLUID ALBUMIN 1.4 g/dL (Not Estab.)
[2022-10-20] MEDS: MUPIROCIN 2% TOPICAL OINTMENT FOR DECOLONIZATION NS SCH ×2 (13:34→21:09)
[2022-10-20] MEDS ORDERED: POTASSIUM CHLORIDE IV SCH (16:00)
[2022-10-20] MEDS ORDERED: [UNRECOGNIZED DRUG - OTHER] IV SCH (16:00)
[2022-10-20] MEDS ORDERED: SODIUM CHLORIDE IV SCH (16:00)
[2022-10-20] MEDS: ZINC OXIDE/PANTHENOL/VITAMIN E 56 GM TUBE TP SCH (20:31)
[2022-10-20] MEDS: CHLORHEXIDINE GLUCONATE 4% CLEANSER FOR DECOLONIZATION TP SCH (21:09)
[2022-10-20] MEDS: FAT EMULSION/OLIVE/SOY/PHOSPHO 250 ML IV SCH (21:09)
[2022-10-21] MEDS: PIPERACILLIN/TAZOB 2.25 GM 2.25 GM in DEXTROSE 5%-WATER - 50 ML IVPB SCH ×4 (02:33→21:33)
[2022-10-21] MEDS: ACETAMINOPHEN 1000 MG/100 ML BAG IVPB PRN ×2 (06:15→23:09)
[2022-10-21 08:14] LABS: HEMATOCRIT 31.8 % (35.4-49); HEMOGLOBIN 10.2 GM/dL (11.7-16.9); MCH 23.3 pg (25.7-33.7); MEAN CELL VOLUME 72.6 fl (80-96); MEAN PLT VOLUME 9.4 fl (7.5-11.1); PLATELET COUNT 157 10^3/uL (134-434); RBC 4.37 M/mm3 (4.00-5.60); RDW 25.9 % (11.9-15.9); WHITE BLOOD COUNT 7.8 K/mm3 (4.0-10.0)
[2022-10-21 08:36] LABS: CHLORIDE 121 mmol/L (98-107); SODIUM 150 mmol/L (136-145)
[2022-10-21 08:41] LABS: ANION GAP 2 MMOL/L (8-16); BLOOD UREA NITROGEN 54.7 mg/dL (7-18); CALCIUM 7.6 mg/dL (8.5-10.1); CO2 26 mmol/L (21-32); GLUCOSE,RANDOM 106 mg/dL (74-106); MAGNESIUM 2.1 mg/dL (1.8-2.4)
[2022-10-21 08:42] LABS: ALBUMIN 1.7 g/dl (3.4-5.0)
[2022-10-21 08:44] LABS: CREATININE 0.7 mg/dL (0.55-1.3); SGPT/ALT 12 U/L (13-61)
[2022-10-21 08:45] LABS: SGOT/AST 10 U/L (15-37)
[2022-10-21 08:46] LABS: BILIRUBIN,TOTAL 0.3 mg/dL (0.2-1)
[2022-10-21 08:47] LABS: ALK PHOS 46 U/L (45-117)
[2022-10-21] MEDS: MUPIROCIN 2% TOPICAL OINTMENT FOR DECOLONIZATION NS SCH ×2 (08:59→21:34)
[2022-10-21] MEDS: PANTOPRAZOLE SODIUM 40 MG VIAL IVPUSH SCH (08:59)
[2022-10-21] MEDS: HEPARIN NA (PORCINE) 5,000 UNITS/ML 1ML VIAL SQ SCH ×2 (09:00→21:32)
[2022-10-21] MEDS ORDERED: DEXTROSE 5%-WATER - 1,000 ML IV SCH (09:00)
[2022-10-21] MEDS ORDERED: DIGOXIN 0.5 MG/2 ML AMPUL IVPUSH ONE (10:00)
[2022-10-21 11:39] LABS: PHOSPHOROUS 0.7 mg/dL (2.5-4.9)
[2022-10-21] MEDS: FLUCONAZOLE 200 MG/NS 100 ML IVPB SCH (11:42)
[2022-10-21] MEDS: LINEZOLID 600 MG PREMIX BAG 600 MG/300 ML BAG IVPB SCH ×2 (13:58→21:33)
[2022-10-21] MEDS: NAPH,MB-DB/K PH,MBDB POWDER PACKET PO SCH ×2 (14:02→21:33)
[2022-10-21] MEDS ORDERED: CALCIUM GLUCONATE IV SCH (16:00)
[2022-10-21] MEDS ORDERED: POTASSIUM CHLORIDE IV SCH (16:00)
[2022-10-21] MEDS ORDERED: [UNRECOGNIZED DRUG - OTHER] IV SCH (16:00)
[2022-10-21] MEDS ORDERED: INSULIN REGULAR IV SCH (16:00)
[2022-10-21] MEDS: ZINC OXIDE/PANTHENOL/VITAMIN E 56 GM TUBE TP SCH (17:05)
[2022-10-21] MEDS: CHLORHEXIDINE GLUCONATE 4% CLEANSER FOR DECOLONIZATION TP SCH (21:34)
[2022-10-21] MEDS: FAT EMULSION/OLIVE/SOY/PHOSPHO 250 ML IV SCH (21:53)
[2022-10-22] MEDS: PIPERACILLIN/TAZOB 2.25 GM 2.25 GM in DEXTROSE 5%-WATER - 50 ML IVPB SCH ×4 (03:44→21:29)
[2022-10-22] MEDS: NAPH,MB-DB/K PH,MBDB POWDER PACKET PO SCH (05:09)
[2022-10-22 07:16] LABS: HEMATOCRIT 29.6 % (35.4-49); HEMOGLOBIN 9.5 GM/dL (11.7-16.9); MCH 23.6 pg (25.7-33.7); MCHC 32.2 g/dl (32.0-35.9); MEAN CELL VOLUME 73.4 fl (80-96); MEAN PLT VOLUME 9.3 fl (7.5-11.1); PLATELET COUNT 163 10^3/uL (134-434); RBC 4.03 M/mm3 (4.00-5.60); RDW 25.8 % (11.9-15.9); WHITE BLOOD COUNT 7.8 K/mm3 (4.0-10.0)
[2022-10-22 07:43] LABS: CALCIUM 7.2 mg/dL (8.5-10.1)
[2022-10-22 07:44] LABS: ALBUMIN 1.5 g/dl (3.4-5.0); CREATININE 0.5 mg/dL (0.55-1.3)
[2022-10-22 07:45] LABS: BILIRUBIN,TOTAL 0.4 mg/dL (0.2-1); TOT PROT 3.9 g/dl (6.4-8.2)
[2022-10-22 08:10] LABS: PHOSPHOROUS 1.3 mg/dL (2.5-4.9)
[2022-10-22] MEDS ORDERED: POTASSIUM PHOSPHATE 30 MM in DEXTROSE 5%-WATER - 500 ML IVPB ONE (09:15)
[2022-10-22] MEDS ORDERED: SODIUM PHOSPHATE - 30 MM in DEXTROSE 5%-WATER - 250 ML IVPB ONE (09:30)
[2022-10-22] MEDS ORDERED: DIGOXIN 0.5 MG/2 ML AMPUL IVPUSH SCH (10:00)
[2022-10-22] MEDS: PANTOPRAZOLE SODIUM 40 MG VIAL IVPUSH SCH (10:14)
[2022-10-22] MEDS: HEPARIN NA (PORCINE) 5,000 UNITS/ML 1ML VIAL SQ SCH ×2 (10:15→21:30)
[2022-10-22] MEDS: LINEZOLID 600 MG PREMIX BAG 600 MG/300 ML BAG IVPB SCH ×2 (10:16→22:04)
[2022-10-22] MEDS: metoPROLOL SUCCINATE 25 MG TAB.SR.24H (FP) PO SCH (10:23)
[2022-10-22] MEDS: MUPIROCIN 2% TOPICAL OINTMENT FOR DECOLONIZATION NS SCH ×2 (10:24→21:30)
[2022-10-22] MEDS ORDERED: CALCIUM GLUCONATE 10% - 1,000 MG/10 ML VIAL IVPUSH ONE (11:58)
[2022-10-22] MEDS ORDERED: FUROSEMIDE 40 MG/4 ML INJECTABLE VIAL IVPUSH ONE (13:22)
[2022-10-22] MEDS: FLUCONAZOLE 200 MG/NS 100 ML IVPB SCH (13:23)
[2022-10-22] MEDS: ZINC OXIDE/PANTHENOL/VITAMIN E 56 GM TUBE TP SCH (13:23)
[2022-10-22] MEDS ORDERED: INSULIN REGULAR IV SCH (16:00)
[2022-10-22] MEDS ORDERED: [UNRECOGNIZED DRUG - OTHER] IV SCH (16:00)
[2022-10-22] MEDS ORDERED: SODIUM ACETATE IV SCH (16:00)
[2022-10-22] MEDS ORDERED: POTASSIUM CHLORIDE IV SCH (16:00)
[2022-10-22] MEDS: AMINO ACIDS/PROTEIN HYDROLYS 30 ML LIQUID.PKT PO SCH (18:27)
[2022-10-22] MEDS: CHLORHEXIDINE GLUCONATE 4% CLEANSER FOR DECOLONIZATION TP SCH (21:30)
[2022-10-22] MEDS: FAT EMUL/SOY/MCT/OLIV/FISH OIL 250 ML IV SCH (22:15)
[2022-10-23 01:26] LABS: CALCIUM 7.2 mg/dL (8.5-10.1)
[2022-10-23 01:28] LABS: ALBUMIN 1.5 g/dl (3.4-5.0); BLOOD UREA NITROGEN 37.5 mg/dL (7-18); MAGNESIUM 1.7 mg/dL (1.8-2.4)
[2022-10-23 01:32] LABS: BILIRUBIN,TOTAL 0.4 mg/dL (0.2-1); CREATININE 0.5 mg/dL (0.55-1.3)
[2022-10-23] MEDS ORDERED: MAGNESIUM 2GM/50ML STERILE WATER IVPB IVPB ONE (01:37)
[2022-10-23] MEDS: PIPERACILLIN/TAZOB 2.25 GM 2.25 GM in DEXTROSE 5%-WATER - 50 ML IVPB SCH ×4 (03:32→20:52)
[2022-10-23 08:38] LABS: HEMATOCRIT 29.4 % (35.4-49); HEMOGLOBIN 9.4 GM/dL (11.7-16.9); MCH 23.3 pg (25.7-33.7); MCHC 31.9 g/dl (32.0-35.9); MEAN CELL VOLUME 73.1 fl (80-96); PLATELET COUNT 188 10^3/uL (134-434); RBC 4.02 M/mm3 (4.00-5.60); WHITE BLOOD COUNT 10.2 K/mm3 (4.0-10.0)
[2022-10-23] MEDS: AMINO ACIDS/PROTEIN HYDROLYS 30 ML LIQUID.PKT PO SCH ×2 (08:40→18:00)
[2022-10-23] MEDS: DIGOXIN 0.125 MG TABLET PO SCH (09:06)
[2022-10-23] MEDS: PANTOPRAZOLE SODIUM 40 MG VIAL IVPUSH SCH (09:06)
[2022-10-23] MEDS: HEPARIN NA (PORCINE) 5,000 UNITS/ML 1ML VIAL SQ SCH (09:06)
[2022-10-23] MEDS: metoPROLOL SUCCINATE 25 MG TAB.SR.24H (FP) PO SCH (09:06)
[2022-10-23] MEDS: FLUCONAZOLE 200 MG/NS 100 ML IVPB SCH (10:18)
[2022-10-23] MEDS: ZINC OXIDE/PANTHENOL/VITAMIN E 56 GM TUBE TP SCH (10:18)
[2022-10-23] MEDS: MUPIROCIN 2% TOPICAL OINTMENT FOR DECOLONIZATION NS SCH ×2 (10:19→21:02)
[2022-10-23] MEDS: LINEZOLID 600 MG PREMIX BAG 600 MG/300 ML BAG IVPB SCH ×2 (10:20→21:01)
[2022-10-23] MEDS ORDERED: CALCIUM GLUCONATE 10% - 1,000 MG/10 ML VIAL IVPUSH ONE (11:43)
[2022-10-23] MEDS ORDERED: POTASSIUM CHLORIDE IV SCH (16:00)
[2022-10-23] MEDS ORDERED: [UNRECOGNIZED DRUG - OTHER] IV SCH (16:00)
[2022-10-23] MEDS ORDERED: SODIUM ACETATE IV SCH (16:00)
[2022-10-23] MEDS ORDERED: INSULIN REGULAR IV SCH (16:00)
[2022-10-23] MEDS: CHLORHEXIDINE GLUCONATE 4% CLEANSER FOR DECOLONIZATION TP SCH (21:00)
[2022-10-23] MEDS: FAT EMUL/SOY/MCT/OLIV/FISH OIL 250 ML IV SCH (21:01)
[2022-10-23] MEDS ORDERED: HEPARIN NA (PORCINE) 5,000 UNITS/ML 1ML VIAL SQ ONE (22:00)
[2022-10-23] MEDS ORDERED: ENOXAPARIN NA (PORCINE) 60 MG/0.6 ML DISP.SYRIN SQ SCH (22:00)
[2022-10-23] MEDS: ACETAMINOPHEN 1000 MG/100 ML BAG IVPB PRN (22:50)
[2022-10-24] MEDS: PIPERACILLIN/TAZOB 2.25 GM 2.25 GM in DEXTROSE 5%-WATER - 50 ML IVPB SCH ×4 (03:49→20:02)
[2022-10-24 07:54] LABS: HEMATOCRIT 31.2 % (35.4-49); HEMOGLOBIN 9.6 GM/dL (11.7-16.9); MCHC 30.7 g/dl (32.0-35.9); MEAN PLT VOLUME 10.7 fl (7.5-11.1); PLATELET COUNT 169 10^3/uL (134-434); RBC 4.17 M/mm3 (4.00-5.60); RDW 25.1 % (11.9-15.9)
[2022-10-24 09:40] LABS: N-TERMINAL BNP 2235.1 pg/ml (5-125)
[2022-10-24] MEDS: PANTOPRAZOLE SODIUM 40 MG VIAL IVPUSH SCH (10:20)
[2022-10-24] MEDS: metoPROLOL SUCCINATE 25 MG TAB.SR.24H (FP) PO SCH (10:20)
[2022-10-24] MEDS: AMINO ACIDS/PROTEIN HYDROLYS 30 ML LIQUID.PKT PO SCH ×2 (10:20→18:12)
[2022-10-24] MEDS: ZINC OXIDE/PANTHENOL/VITAMIN E 56 GM TUBE TP SCH (10:21)
[2022-10-24] MEDS: DIGOXIN 0.125 MG TABLET PO SCH (10:21)
[2022-10-24] MEDS: LINEZOLID 600 MG PREMIX BAG 600 MG/300 ML BAG IVPB SCH ×2 (11:22→21:09)
[2022-10-24 12:38] LABS: CALCIUM 7.4 mg/dL (8.5-10.1)
[2022-10-24 12:39] LABS: ALBUMIN 1.5 g/dl (3.4-5.0); BLOOD UREA NITROGEN 41.1 mg/dL (7-18); MAGNESIUM 2.3 mg/dL (1.8-2.4)
[2022-10-24 12:41] LABS: PHOSPHOROUS 3.6 mg/dL (2.5-4.9)
[2022-10-24 12:43] LABS: BILIRUBIN,TOTAL 0.2 mg/dL (0.2-1); CREATININE 0.5 mg/dL (0.55-1.3); TOT PROT 4.4 g/dl (6.4-8.2)
[2022-10-24] MEDS ORDERED: CALCIUM GLUCONATE IN NACL 1 GM/50 ML BAG IVPB ONE (12:49)
[2022-10-24] MEDS ORDERED: FUROSEMIDE 40 MG/4 ML INJECTABLE VIAL IVPUSH ONE (14:01)
[2022-10-24] MEDS: FLUCONAZOLE 200 MG/NS 100 ML IVPB SCH (14:57)
[2022-10-24] MEDS ORDERED: FOLIC ACID IV SCH (16:00)
[2022-10-24] MEDS ORDERED: SODIUM ACETATE IV SCH (16:00)
[2022-10-24] MEDS ORDERED: ALBUMIN HUMAN 25% 12.5 GM/50 ML VIAL IV SCH (16:00)
[2022-10-24] MEDS ORDERED: INSULIN REGULAR IV SCH (16:00)
[2022-10-24] MEDS ORDERED: [UNRECOGNIZED DRUG - OTHER] IV SCH (16:00)
[2022-10-24] MEDS: ALBUMIN HUMAN 25% 100 ML VIAL IV SCH ×2 (17:00→18:11)
[2022-10-24] MEDS ORDERED: RIVAROXABAN 10 MG TABLET PO SCH (18:00)
[2022-10-24] MEDS: RIVAROXABAN 20 MG TABLET PO SCH (18:12)
[2022-10-24] MEDS ORDERED: LACTATED RINGERS SOLUTION 1,000 ML/1,000 ML INFUS.BAG IV SCH (18:15)
[2022-10-24] MEDS: ACETAMINOPHEN 1000 MG/100 ML BAG IVPB PRN (19:37)
[2022-10-24] MEDS: FAT EMUL/SOY/MCT/OLIV/FISH OIL 250 ML IV SCH (21:09)
[2022-10-24] MEDS: CHLORHEXIDINE GLUCONATE 4% CLEANSER FOR DECOLONIZATION TP SCH (22:33)
[2022-10-24] MEDS: LACTATED RINGERS SOLUTION 1,000 ML/1,000 ML INFUS.BAG IV SCH (22:34)
[2022-10-24] MEDS: ALBUMIN HUMAN 25% 12.5 GM/50 ML VIAL IV SCH ×3 (22:49→23:53)
[2022-10-25] MEDS: ALBUMIN HUMAN 25% 12.5 GM/50 ML VIAL IV SCH (00:02)
[2022-10-25] MEDS: LACTATED RINGERS SOLUTION 1,000 ML/1,000 ML INFUS.BAG IV SCH (01:31)
[2022-10-25] MEDS ORDERED: LACTATED RINGERS SOLUTION 1,000 ML/1,000 ML INFUS.BAG IV SCH (02:15)
[2022-10-25] MEDS: PIPERACILLIN/TAZOB 2.25 GM 2.25 GM in DEXTROSE 5%-WATER - 50 ML IVPB SCH ×4 (02:31→21:10)
[2022-10-25 08:13] LABS: HEMATOCRIT 23.6 % (35.4-49); HEMOGLOBIN 7.4 GM/dL (11.7-16.9); MCH 23.6 pg (25.7-33.7); MCHC 31.1 g/dl (32.0-35.9); MEAN CELL VOLUME 75.7 fl (80-96); PLATELET COUNT 149 10^3/uL (134-434); RBC 3.12 M/mm3 (4.00-5.60); RDW 24.9 % (11.9-15.9); WHITE BLOOD COUNT 9.1 K/mm3 (4.0-10.0)
[2022-10-25 08:35] LABS: CALCIUM 7.7 mg/dL (8.5-10.1)
[2022-10-25 08:36] LABS: BLOOD UREA NITROGEN 49.5 mg/dL (7-18); MAGNESIUM 2.3 mg/dL (1.8-2.4)
[2022-10-25 08:39] LABS: CREATININE 0.6 mg/dL (0.55-1.3)
[2022-10-25 08:40] LABS: BILIRUBIN,TOTAL 0.3 mg/dL (0.2-1); TOT PROT 4.5 g/dl (6.4-8.2)
[2022-10-25 09:01] LABS: ALBUMIN 2.4 g/dl (3.4-5.0)
[2022-10-25] MEDS: FLUCONAZOLE 200 MG/NS 100 ML IVPB SCH (09:37)
[2022-10-25] MEDS: DIGOXIN 0.125 MG TABLET PO SCH (09:44)
[2022-10-25] MEDS: metoPROLOL SUCCINATE 25 MG TAB.SR.24H (FP) PO SCH (09:44)
[2022-10-25] MEDS: PANTOPRAZOLE SODIUM 40 MG VIAL IVPUSH SCH (09:44)
[2022-10-25] MEDS: AMINO ACIDS/PROTEIN HYDROLYS 30 ML LIQUID.PKT PO SCH ×2 (09:44→17:06)
[2022-10-25] MEDS: LINEZOLID 600 MG PREMIX BAG 600 MG/300 ML BAG IVPB SCH ×2 (09:45→21:10)
[2022-10-25] MEDS: ZINC OXIDE/PANTHENOL/VITAMIN E 56 GM TUBE TP SCH (12:03)
[2022-10-25 13:39] LABS: HEMATOCRIT 24.5 % (35.4-49); HEMOGLOBIN 7.6 GM/dL (11.7-16.9); MCH 23.5 pg (25.7-33.7); MCHC 31.1 g/dl (32.0-35.9); MEAN CELL VOLUME 75.5 fl (80-96); PLATELET COUNT 151 10^3/uL (134-434); RBC 3.25 M/mm3 (4.00-5.60); RDW 25.1 % (11.9-15.9); WHITE BLOOD COUNT 9.6 K/mm3 (4.0-10.0)
[2022-10-25] MEDS ORDERED: FOLIC ACID IV SCH (16:00)
[2022-10-25] MEDS ORDERED: INSULIN REGULAR IV SCH (16:00)
[2022-10-25] MEDS ORDERED: SODIUM ACETATE IV SCH (16:00)
[2022-10-25] MEDS ORDERED: [UNRECOGNIZED DRUG - OTHER] IV SCH (16:00)
[2022-10-25] MEDS: RIVAROXABAN 20 MG TABLET PO SCH (17:06)
[2022-10-25] MEDS: MUPIROCIN 2% TOPICAL OINTMENT FOR DECOLONIZATION NS SCH (21:10)
[2022-10-25] MEDS: CHLORHEXIDINE GLUCONATE 4% CLEANSER FOR DECOLONIZATION TP SCH (21:10)
[2022-10-25] MEDS: FAT EMUL/SOY/MCT/OLIV/FISH OIL 250 ML IV SCH (21:11)
[2022-10-26] MEDS ORDERED: ETOMIDATE 40 MG/20 ML VIAL IVPUSH ONE (01:10)
[2022-10-26] MEDS ORDERED: ROCURONIUM BROMIDE 50 MG/5 ML VIAL IVPUSH ONE (01:10)
[2022-10-26] MEDS ORDERED: MIDAZOLAM HCL 2 MG/2 ML SINGLE DOSE VIAL ONE (01:13)
[2022-10-26] MEDS ORDERED: PROPOFOL 1,000,000 MCG/100 ML VIAL ONE (01:13)
[2022-10-26] MEDS ORDERED: FENTANYL IVPB 500 MCG/100 ML BAG IVPB SCH (01:15)
[2022-10-26] MEDS: NOREPINEPHRINE 0.9 % NACL 8 MG/250 ML BAG IVPB SCH (01:15)
[2022-10-26] MEDS ORDERED: FENTANYL NS IVPB 500 MCG/100 ML BAG IVPB ONE (01:20)
[2022-10-26] MEDS ORDERED: VASOPRESSIN 20 UNITS/ML VIAL IV ONE (01:38)
[2022-10-26] MEDS ORDERED: MIDAZOLAM HCL 2 MG/2 ML SINGLE DOSE VIAL IVPUSH ONE (01:59)
[2022-10-26] MEDS ORDERED: PHENYLEPHRINE HCL 10 MG/1 ML SINGLE DOSE VIAL IVPB ONE (02:01)
[2022-10-26] MEDS: FENTANYL NS IVPB 500 MCG/100 ML BAG IVPB SCH (02:24)
[2022-10-26] MEDS: HYDROCORTISONE SOD SUCCINATE 100 MG/2 ML VIAL IVPUSH SCH ×3 (02:29→18:21)
[2022-10-26] MEDS: PIPERACILLIN/TAZOB 2.25 GM 2.25 GM in DEXTROSE 5%-WATER - 50 ML IVPB SCH ×4 (02:29→21:13)
[2022-10-26 02:52] LABS: ARTERIAL BLD GAS O2 SATURATION 94.1 % (95-98); ARTERIAL BLOOD GAS PO2 86.7 mmHg (80-100)
[2022-10-26 02:55] LABS: ARTERIAL BLOOD GAS pH 7.198 (7.350-7.450); VENT MODE V-A/C; VENT RATE 25
[2022-10-26 07:22] LABS: ARTERIAL BLOOD GAS BASE EXCESS -0.2 mmol/L (-2-2); ARTERIAL BLOOD GAS PO2 123.3 mmHg (80-100); ARTERIAL BLOOD GAS pH 7.298 (7.350-7.450)
[2022-10-26 07:22] LABS: HEMATOCRIT 26.5 % (35.4-49); HEMOGLOBIN 8.1 GM/dL (11.7-16.9); MCH 23.3 pg (25.7-33.7); MCHC 30.6 g/dl (32.0-35.9); MEAN CELL VOLUME 76.2 fl (80-96); MEAN PLT VOLUME 12.3 fl (7.5-11.1); PLATELET COUNT 156 10^3/uL (134-434); RBC 3.48 M/mm3 (4.00-5.60); RDW 25.3 % (11.9-15.9); WHITE BLOOD COUNT 16.8 K/mm3 (4.0-10.0)
[2022-10-26 07:24] LABS: VENT MODE V-A/C; VENT RATE 34
[2022-10-26 07:48] LABS: BLOOD UREA NITROGEN 66.5 mg/dL (7-18); CALCIUM 7.8 mg/dL (8.5-10.1); MAGNESIUM 2.4 mg/dL (1.8-2.4)
[2022-10-26 07:50] LABS: CREATININE 0.8 mg/dL (0.55-1.3)
[2022-10-26 07:51] LABS: PHOSPHOROUS 3.2 mg/dL (2.5-4.9)
[2022-10-26 07:53] LABS: BILIRUBIN,TOTAL 0.4 mg/dL (0.2-1); TOT PROT 4.2 g/dl (6.4-8.2)
[2022-10-26] MEDS: VASOPRESSIN 40 UNITS/100 ML BAG IV SCH (08:00)
[2022-10-26 08:04] LABS: ALBUMIN 1.9 g/dl (3.4-5.0)
[2022-10-26] MEDS ORDERED: LACTATED RINGERS SOLUTION 1,000 ML/1,000 ML INFUS.BAG IV STA (09:50)
[2022-10-26] MEDS: PHENYLEPHRINE NS PREMIX 50,000 MCG/500 ML BAG CVP SCH (10:30)
[2022-10-26 10:41] LABS: ARTERIAL BLD GAS O2 SATURATION 98.4 % (95-98); ARTERIAL BLOOD GAS BASE EXCESS 1.3 mmol/L (-2-2); ARTERIAL BLOOD GAS PO2 122.6 mmHg (80-100); ARTERIAL BLOOD GAS pH 7.388 (7.350-7.450)
[2022-10-26 10:43] LABS: PT'S TEMP 100.3; VENT MODE A/C
[2022-10-26 10:44] LABS: VENT RATE 28
[2022-10-26] MEDS: MUPIROCIN 2% TOPICAL OINTMENT FOR DECOLONIZATION NS SCH ×2 (11:13→21:13)
[2022-10-26] MEDS: PANTOPRAZOLE SODIUM 40 MG VIAL IVPUSH SCH (11:14)
[2022-10-26] MEDS: FLUCONAZOLE 200 MG/NS 100 ML IVPB SCH (11:14)
[2022-10-26] MEDS: ZINC OXIDE/PANTHENOL/VITAMIN E 56 GM TUBE TP SCH (11:14)
[2022-10-26] MEDS: DIGOXIN 0.25 MG TABLET PO SCH (11:14)
[2022-10-26] MEDS: COLLAGENASE CLOSTRIDIUM HIST. 30 GRAMS TUBE TP SCH (11:15)
[2022-10-26] MEDS: LINEZOLID 600 MG PREMIX BAG 600 MG/300 ML BAG IVPB SCH ×2 (11:15→21:12)
[2022-10-26] MEDS ORDERED: DEXMEDETOMIDINE PREMIX 400 MCG/100 ML BAG IVPB SCH (14:45)
[2022-10-26] MEDS ORDERED: FOLIC ACID IV SCH (16:00)
[2022-10-26] MEDS ORDERED: SODIUM ACETATE IV SCH (16:00)
[2022-10-26] MEDS ORDERED: INSULIN REGULAR IV SCH (16:00)
[2022-10-26] MEDS ORDERED: [UNRECOGNIZED DRUG - OTHER] IV SCH (16:00)
[2022-10-26] MEDS: AMINO ACIDS/PROTEIN HYDROLYS 30 ML LIQUID.PKT NGT SCH (18:21)
[2022-10-26] MEDS: RIVAROXABAN 20 MG TABLET PO SCH (18:21)
[2022-10-26] MEDS: CHLORHEXIDINE GLUCONATE 4% CLEANSER FOR DECOLONIZATION TP SCH (21:13)
[2022-10-26] MEDS: MIDAZOLAM IN 0.9 % SOD.CHLORID 100 MG/100 ML PLAST..BAG IVPB SCH (22:15)
[2022-10-27] MEDS: NOREPINEPHRINE 0.9 % NACL 8 MG/250 ML BAG IVPB SCH ×2 (01:35→18:13)
[2022-10-27] MEDS: FENTANYL NS IVPB 500 MCG/100 ML BAG IVPB SCH ×4 (01:36→16:05)
[2022-10-27] MEDS: HYDROCORTISONE SOD SUCCINATE 100 MG/2 ML VIAL IVPUSH SCH ×3 (01:36→18:00)
[2022-10-27] MEDS: PIPERACILLIN/TAZOB 2.25 GM 2.25 GM in DEXTROSE 5%-WATER - 50 ML IVPB SCH ×4 (03:44→21:13)
[2022-10-27 07:17] LABS: HEMATOCRIT 27.4 % (35.4-49); HEMOGLOBIN 8.7 GM/dL (11.7-16.9); MCH 23.4 pg (25.7-33.7); MCHC 31.7 g/dl (32.0-35.9); MEAN CELL VOLUME 73.8 fl (80-96); MEAN PLT VOLUME 11.8 fl (7.5-11.1); PLATELET COUNT 111 10^3/uL (134-434); RBC 3.71 M/mm3 (4.00-5.60); RDW 25.5 % (11.9-15.9); WHITE BLOOD COUNT 14.4 K/mm3 (4.0-10.0)
[2022-10-27 07:30] LABS: CALCIUM 7.1 mg/dL (8.5-10.1)
[2022-10-27 07:31] LABS: ALBUMIN 1.6 g/dl (3.4-5.0); MAGNESIUM 2.4 mg/dL (1.8-2.4)
[2022-10-27 07:34] LABS: CREATININE 1.3 mg/dL (0.55-1.3); PHOSPHOROUS 3.9 mg/dL (2.5-4.9)
[2022-10-27 07:35] LABS: BILIRUBIN,TOTAL 0.7 mg/dL (0.2-1)
[2022-10-27 07:43] LABS: BLOOD UREA NITROGEN 95.7 mg/dL (7-18)
[2022-10-27] MEDS: INSULIN SLIDING SCALE (NOVOLOG) 1 VIAL SQ SCH ×3 (09:19→21:08)
[2022-10-27] MEDS: AMINO ACIDS/PROTEIN HYDROLYS 30 ML LIQUID.PKT NGT SCH ×2 (09:19→18:00)
[2022-10-27] MEDS: VASOPRESSIN 40 UNITS/100 ML BAG IV SCH (09:20)
[2022-10-27] MEDS: ZINC OXIDE/PANTHENOL/VITAMIN E 56 GM TUBE TP SCH (09:22)
[2022-10-27] MEDS: DIGOXIN 0.25 MG TABLET PO SCH (09:22)
[2022-10-27] MEDS: MUPIROCIN 2% TOPICAL OINTMENT FOR DECOLONIZATION NS SCH ×2 (09:22→21:09)
[2022-10-27] MEDS: PANTOPRAZOLE SODIUM 40 MG VIAL IVPUSH SCH (09:23)
[2022-10-27] MEDS: LINEZOLID 600 MG PREMIX BAG 600 MG/300 ML BAG IVPB SCH ×2 (09:24→21:13)
[2022-10-27] MEDS: COLLAGENASE CLOSTRIDIUM HIST. 30 GRAMS TUBE TP SCH (10:22)
[2022-10-27] MEDS: PHENYLEPHRINE NS PREMIX 50,000 MCG/500 ML BAG CVP SCH ×2 (10:28→18:13)
[2022-10-27] MEDS: FLUCONAZOLE 200 MG/NS 100 ML IVPB SCH (10:29)
[2022-10-27] MEDS ORDERED: EPINEPHrine 1:10,000 (P-F SYR) 1 MG/10 ML DISP.SYRIN ONE (13:03)
[2022-10-27 13:34] LABS: EPI CELLS 18 /uL (0-25.1); HYALINE CASTS 12 /uL (0-3.1); URINE APPEARANCE CLEAR; URINE BACTERIA 2 /uL (0-1359); URINE BILIRUBIN NEGATIVE (NEGATIVE); URINE COLOR YELLOW; URINE GLUCOSE (UA) NEGATIVE (NEGATIVE); URINE KETONE NEGATIVE (NEGATIVE); URINE LEUK ESTERASE NEGATIVE (NEGATIVE); URINE NITRITE NEGATIVE (NEGATIVE); URINE PROTEIN 1+ (NEGATIVE); URINE UROBILINOGEN 0.2 mg/dL (0.2-1.0); URINE WBC 22 /uL (0-25.8)
[2022-10-27 13:57] LABS: URINE RBC 36.3 /uL (0-23.9)
[2022-10-27] MEDS: MIDAZOLAM IN 0.9 % SOD.CHLORID 100 MG/100 ML PLAST..BAG IVPB SCH ×2 (15:05→17:59)
[2022-10-27] MEDS: INSULIN REGULAR IV SCH (15:37)
[2022-10-27] MEDS: [UNRECOGNIZED DRUG - OTHER] IV SCH (15:37)
[2022-10-27] MEDS: SODIUM ACETATE IV SCH (15:37)
[2022-10-27] MEDS: FOLIC ACID IV SCH (15:37)
[2022-10-27] MEDS: RIVAROXABAN 20 MG TABLET PO SCH (18:00)
[2022-10-27] MEDS: CHLORHEXIDINE GLUCONATE 4% CLEANSER FOR DECOLONIZATION TP SCH (21:09)
[2022-10-28] MEDS: NOREPINEPHRINE 0.9 % NACL 8 MG/250 ML BAG IVPB SCH (01:26)
[2022-10-28] MEDS: HYDROCORTISONE SOD SUCCINATE 100 MG/2 ML VIAL IVPUSH SCH ×3 (01:27→17:24)
[2022-10-28] MEDS: PIPERACILLIN/TAZOB 2.25 GM 2.25 GM in DEXTROSE 5%-WATER - 50 ML IVPB SCH ×4 (02:19→20:49)
[2022-10-28] MEDS: INSULIN SLIDING SCALE (NOVOLOG) 1 VIAL SQ SCH ×4 (02:19→20:20)
[2022-10-28 06:05] LABS: ARTERIAL BLD GAS O2 SATURATION 99.5 % (95-98); ARTERIAL BLOOD GAS BASE EXCESS 1.4 mmol/L (-2-2); ARTERIAL BLOOD GAS PO2 191.4 mmHg (80-100); ARTERIAL BLOOD GAS pH 7.532 (7.350-7.450)
[2022-10-28 06:49] LABS: ALLENS TEST POSITIVE
[2022-10-28 06:50] LABS: VENT MODE A/C; VENT RATE 28
[2022-10-28 07:15] LABS: HEMATOCRIT 20.1 % (35.4-49); MCH 23.6 pg (25.7-33.7); MCHC 32.6 g/dl (32.0-35.9); MEAN CELL VOLUME 72.4 fl (80-96); MEAN PLT VOLUME 11.8 fl (7.5-11.1); PLATELET COUNT 60 10^3/uL (134-434); RBC 2.77 M/mm3 (4.00-5.60); RDW 26.3 % (11.9-15.9); WHITE BLOOD COUNT 6.7 K/mm3 (4.0-10.0)
[2022-10-28 07:19] LABS: HEMOGLOBIN 6.5 GM/dL (11.7-16.9)
[2022-10-28 07:26] LABS: ALBUMIN 1.3 g/dl (3.4-5.0); MAGNESIUM 2.6 mg/dL (1.8-2.4)
[2022-10-28 07:27] LABS: BLOOD UREA NITROGEN 93.7 mg/dL (7-18)
[2022-10-28 07:29] LABS: BILIRUBIN,TOTAL 0.6 mg/dL (0.2-1); PHOSPHOROUS 2.6 mg/dL (2.5-4.9); TOT PROT 3.6 g/dl (6.4-8.2)
[2022-10-28] MEDS: FENTANYL NS IVPB 500 MCG/100 ML BAG IVPB SCH ×3 (08:56→19:34)
[2022-10-28] MEDS: AMINO ACIDS/PROTEIN HYDROLYS 30 ML LIQUID.PKT NGT SCH ×2 (08:56→17:24)
[2022-10-28] MEDS: MIDAZOLAM IN 0.9 % SOD.CHLORID 100 MG/100 ML PLAST..BAG IVPB SCH ×2 (08:56→17:24)
[2022-10-28] MEDS: MUPIROCIN 2% TOPICAL OINTMENT FOR DECOLONIZATION NS SCH ×2 (09:02→21:50)
[2022-10-28] MEDS: DIGOXIN 0.25 MG TABLET PO SCH (09:02)
[2022-10-28] MEDS: PANTOPRAZOLE SODIUM 40 MG VIAL IVPUSH SCH (09:02)
[2022-10-28 09:03] LABS: ANISOCYTOSIS 3+; MACROCYTOSIS 0; ROULEAU 1+
[2022-10-28] MEDS: COLLAGENASE CLOSTRIDIUM HIST. 30 GRAMS TUBE TP SCH (09:03)
[2022-10-28] MEDS: LINEZOLID 600 MG PREMIX BAG 600 MG/300 ML BAG IVPB SCH ×2 (09:03→21:52)
[2022-10-28] MEDS: ZINC OXIDE/PANTHENOL/VITAMIN E 56 GM TUBE TP SCH (09:04)
[2022-10-28] MEDS ORDERED: LIDOCAINE HCL 1%, 10 MG/ML (50 mL VIAL) SQ ONE (09:22)
[2022-10-28] MEDS ORDERED: POTASSIUM CHLORIDE 20 MEQ PREMIX IVPB 100 ML IVPB ONE (09:25)
[2022-10-28] MEDS: VASOPRESSIN 40 UNITS/100 ML BAG IV SCH ×2 (09:30→14:04)
[2022-10-28] MEDS: FLUCONAZOLE 200 MG/NS 100 ML IVPB SCH (11:00)
[2022-10-28] MEDS ORDERED: VASOPRESSIN 20 UNITS/ML VIAL IV ONE (13:46)
[2022-10-28] MEDS ORDERED: FUROSEMIDE 40 MG/4 ML INJECTABLE VIAL IVPUSH ONE ×2 (14:01→21:00)
[2022-10-28] MEDS: PHENYLEPHRINE NS PREMIX 50,000 MCG/500 ML BAG CVP SCH (14:28)
[2022-10-28] MEDS: INSULIN REGULAR IV SCH (15:34)
[2022-10-28] MEDS: [UNRECOGNIZED DRUG - OTHER] IV SCH (15:34)
[2022-10-28] MEDS: FOLIC ACID IV SCH (15:34)
[2022-10-28] MEDS: SODIUM ACETATE IV SCH (15:34)
[2022-10-28] MEDS: ALBUMIN HUMAN 25% 12.5 GM/50 ML VIAL IV SCH ×2 (20:20→20:50)
[2022-10-28] MEDS: CHLORHEXIDINE GLUCONATE 4% CLEANSER FOR DECOLONIZATION TP SCH (21:50)
[2022-10-28 22:12] LABS: HEMATOCRIT 19.3 % (35.4-49); MCH 25.2 pg (25.7-33.7); MEAN CELL VOLUME 76.2 fl (80-96); MEAN PLT VOLUME 10.4 fl (7.5-11.1); RBC 2.54 M/mm3 (4.00-5.60); RDW 26.8 % (11.9-15.9); WHITE BLOOD COUNT 7.7 K/mm3 (4.0-10.0)
[2022-10-28 22:17] LABS: HEMOGLOBIN 6.4 GM/dL (11.7-16.9)
[2022-10-28 22:40] LABS: PLATELET COUNT 38 10^3/uL (134-434)
[2022-10-29] MEDS: HYDROCORTISONE SOD SUCCINATE 100 MG/2 ML VIAL IVPUSH SCH ×3 (01:08→17:01)
[2022-10-29] MEDS: NOREPINEPHRINE 0.9 % NACL 8 MG/250 ML BAG IVPB SCH ×2 (01:28→10:44)
[2022-10-29] MEDS: FENTANYL NS IVPB 500 MCG/100 ML BAG IVPB SCH ×5 (01:29→18:14)
[2022-10-29] MEDS: MIDAZOLAM IN 0.9 % SOD.CHLORID 100 MG/100 ML PLAST..BAG IVPB SCH ×2 (01:30→17:00)
[2022-10-29] MEDS: PIPERACILLIN/TAZOB 2.25 GM 2.25 GM in DEXTROSE 5%-WATER - 50 ML IVPB SCH ×4 (02:34→21:11)
[2022-10-29] MEDS: INSULIN SLIDING SCALE (NOVOLOG) 1 VIAL SQ SCH ×4 (02:34→20:30)
[2022-10-29 08:00] LABS: HEMATOCRIT 20.5 % (35.4-49); MCHC 33.7 g/dl (32.0-35.9); MEAN CELL VOLUME 77.3 fl (80-96); MEAN PLT VOLUME 10.2 fl (7.5-11.1); RBC 2.65 M/mm3 (4.00-5.60); RDW 26.1 % (11.9-15.9); WHITE BLOOD COUNT 7.9 K/mm3 (4.0-10.0)
[2022-10-29 08:25] LABS: INR 1.45 (0.83-1.09); PROTHROMBIN TIME (PATIENT) 16.8 SEC (9.7-13.0)
[2022-10-29 08:30] LABS: CREATININE 0.7 mg/dL (0.55-1.3)
[2022-10-29 08:31] LABS: BILIRUBIN,TOTAL 1.2 mg/dL (0.2-1); TOT PROT 3.5 g/dl (6.4-8.2)
[2022-10-29 08:32] LABS: MAGNESIUM 2.4 mg/dL (1.8-2.4); PHOSPHOROUS 2.8 mg/dL (2.5-4.9)
[2022-10-29 08:51] LABS: HEMOGLOBIN 6.9 GM/dL (11.7-16.9)
[2022-10-29 08:52] LABS: PLATELET COUNT 27 10^3/uL (134-434)
[2022-10-29] MEDS: AMINO ACIDS/PROTEIN HYDROLYS 30 ML LIQUID.PKT NGT SCH (09:00)
[2022-10-29 09:03] LABS: ALBUMIN 1.6 g/dl (3.4-5.0)
[2022-10-29] MEDS: LINEZOLID 600 MG PREMIX BAG 600 MG/300 ML BAG IVPB SCH ×2 (09:09→10:13)
[2022-10-29] MEDS: PANTOPRAZOLE SODIUM 40 MG VIAL IVPUSH SCH (09:09)
[2022-10-29] MEDS: FLUCONAZOLE 200 MG/NS 100 ML IVPB SCH (09:23)
[2022-10-29] MEDS: ZINC OXIDE/PANTHENOL/VITAMIN E 56 GM TUBE TP SCH (09:24)
[2022-10-29] MEDS: COLLAGENASE CLOSTRIDIUM HIST. 30 GRAMS TUBE TP SCH (09:24)
[2022-10-29] MEDS: DIGOXIN 0.25 MG TABLET PO SCH (09:24)
[2022-10-29] MEDS: VASOPRESSIN 40 UNITS/100 ML BAG IV SCH (09:40)
[2022-10-29 09:56] LABS: ANISOCYTOSIS 3+; MACROCYTOSIS 0; PLATELET ESTIMATE DECREASED
[2022-10-29] MEDS: MUPIROCIN 2% TOPICAL OINTMENT FOR DECOLONIZATION NS SCH ×2 (10:05→21:12)
[2022-10-29] MEDS: PHENYLEPHRINE NS PREMIX 50,000 MCG/500 ML BAG CVP SCH (10:38)
[2022-10-29] MEDS: DAPTOMYCIN 300 MG in SODIUM CHLORIDE 50 ML IVPB SCH (13:21)
[2022-10-29] MEDS ORDERED: [UNRECOGNIZED DRUG - OTHER] IV SCH (16:00)
[2022-10-29] MEDS ORDERED: INSULIN REGULAR IV SCH (16:00)
[2022-10-29] MEDS ORDERED: MULTIVIT IV SCH (16:00)
[2022-10-29] MEDS ORDERED: FOLIC ACID IV SCH (16:00)
[2022-10-29 19:21] LABS: HEMOGLOBIN 8.1 GM/dL (11.7-16.9); MCH 26.8 pg (25.7-33.7); MCHC 33.6 g/dl (32.0-35.9); MEAN CELL VOLUME 79.6 fl (80-96); MEAN PLT VOLUME 8.5 fl (7.5-11.1); PLATELET COUNT 55 10^3/uL (134-434); RBC 3.02 M/mm3 (4.00-5.60); RDW 24.3 % (11.9-15.9); WHITE BLOOD COUNT 9.9 K/mm3 (4.0-10.0)
[2022-10-29] MEDS: CHLORHEXIDINE GLUCONATE 4% CLEANSER FOR DECOLONIZATION TP SCH (21:12)
[2022-10-30] MEDS: HYDROCORTISONE SOD SUCCINATE 100 MG/2 ML VIAL IVPUSH SCH ×3 (01:42→16:59)
[2022-10-30] MEDS: PIPERACILLIN/TAZOB 2.25 GM 2.25 GM in DEXTROSE 5%-WATER - 50 ML IVPB SCH ×4 (02:02→21:22)
[2022-10-30] MEDS: INSULIN SLIDING SCALE (NOVOLOG) 1 VIAL SQ SCH ×4 (02:02→21:31)
[2022-10-30 07:44] LABS: HEMATOCRIT 22.3 % (35.4-49); HEMOGLOBIN 7.7 GM/dL (11.7-16.9); MCH 27.2 pg (25.7-33.7); MCHC 34.5 g/dl (32.0-35.9); MEAN CELL VOLUME 78.8 fl (80-96); MEAN PLT VOLUME 9.5 fl (7.5-11.1); PLATELET COUNT 39 10^3/uL (134-434); RBC 2.83 M/mm3 (4.00-5.60); RDW 24.1 % (11.9-15.9); WHITE BLOOD COUNT 9.6 K/mm3 (4.0-10.0)
[2022-10-30] MEDS ORDERED: AMINO ACIDS/PROTEIN HYDROLYS 30 ML LIQUID.PKT NGT SCH (08:00)
[2022-10-30 08:12] LABS: CHLORIDE 115 mmol/L (98-107); SODIUM 150 mmol/L (136-145)
[2022-10-30 08:14] LABS: CO2 29 mmol/L (21-32); MAGNESIUM 2.5 mg/dL (1.8-2.4)
[2022-10-30 08:15] LABS: ALBUMIN 1.6 g/dl (3.4-5.0); GLUCOSE,RANDOM 206 mg/dL (74-106)
[2022-10-30 08:17] LABS: CREATININE 0.6 mg/dL (0.55-1.3); SGOT/AST 39 U/L (15-37); SGPT/ALT 24 U/L (13-61)
[2022-10-30 08:18] LABS: TOT PROT 3.8 g/dl (6.4-8.2)
[2022-10-30 08:19] LABS: CHOLESTEROL < 50 mg/dL (50-200); HDL CHOLESTEROL 12 mg/dL (40-60); PHOSPHOROUS 2.4 mg/dL (2.5-4.9); TRIGLYCERIDES 84 mg/dL (0-150)
[2022-10-30 08:20] LABS: BILIRUBIN,TOTAL 1.8 mg/dL (0.2-1); LDL CHOLESTEROL (ONLY SJRH) 28 mg/dL (5-100)
[2022-10-30 08:23] LABS: ANION GAP 6 MMOL/L (8-16)
[2022-10-30 08:26] LABS: ALK PHOS 81 U/L (45-117)
[2022-10-30] MEDS: POTASSIUM CHLORIDE 20 MEQ PREMIX IVPB 100 ML IVPB SCH ×3 (09:13→11:43)
[2022-10-30] MEDS: PANTOPRAZOLE SODIUM 40 MG VIAL IVPUSH SCH (09:14)
[2022-10-30] MEDS: COLLAGENASE CLOSTRIDIUM HIST. 30 GRAMS TUBE TP SCH (09:14)
[2022-10-30] MEDS: DIGOXIN 0.25 MG TABLET PO SCH (09:14)
[2022-10-30] MEDS ORDERED: POTASSIUM PHOSPHATE 15 MM in DEXTROSE 5%-WATER - 250 ML IVPB ONE (09:20)
[2022-10-30] MEDS: DAPTOMYCIN 300 MG in SODIUM CHLORIDE 50 ML IVPB SCH (09:46)
[2022-10-30] MEDS: FENTANYL NS IVPB 500 MCG/100 ML BAG IVPB SCH ×2 (09:47→18:07)
[2022-10-30] MEDS: ZINC OXIDE/PANTHENOL/VITAMIN E 56 GM TUBE TP SCH (10:02)
[2022-10-30] MEDS: MUPIROCIN 2% TOPICAL OINTMENT FOR DECOLONIZATION NS SCH (10:02)
[2022-10-30 10:09] LABS: ANISOCYTOSIS 0; MACROCYTOSIS 0
[2022-10-30] MEDS: FLUCONAZOLE 200 MG/NS 100 ML IVPB SCH (10:39)
[2022-10-30] MEDS ORDERED: PROPOFOL 1,000,000 MCG/100 ML VIAL IVPUSH SCH (12:00)
[2022-10-30] MEDS ORDERED: FENTANYL NS IVPB 500 MCG/100 ML BAG IVPB SCH (15:15)
[2022-10-30] MEDS ORDERED: [UNRECOGNIZED DRUG - OTHER] IV SCH (16:00)
[2022-10-30] MEDS ORDERED: FOLIC ACID IV SCH (16:00)
[2022-10-30] MEDS ORDERED: INSULIN REGULAR IV SCH (16:00)
[2022-10-30] MEDS ORDERED: MULTIVIT IV SCH (16:00)
[2022-10-30 18:04] LABS: HEMATOCRIT 23.7 % (35.4-49); HEMOGLOBIN 8.1 GM/dL (11.7-16.9); MCH 27.1 pg (25.7-33.7); MCHC 34.1 g/dl (32.0-35.9); MEAN CELL VOLUME 79.7 fl (80-96); MEAN PLT VOLUME 11.2 fl (7.5-11.1); PLATELET COUNT 45 10^3/uL (134-434); RBC 2.97 M/mm3 (4.00-5.60); RDW 24.1 % (11.9-15.9); WHITE BLOOD COUNT 9.4 K/mm3 (4.0-10.0)
[2022-10-30 18:24] LABS: CALCIUM 7.1 mg/dL (8.5-10.1)
[2022-10-30 18:25] LABS: BLOOD UREA NITROGEN 63.3 mg/dL (7-18)
[2022-10-30 18:28] LABS: CREATININE 0.6 mg/dL (0.55-1.3); PHOSPHOROUS 3.1 mg/dL (2.5-4.9)
[2022-10-30 19:14] LABS: ANISOCYTOSIS 2+; MACROCYTOSIS 0; OVALOCYTE 1+; TEAR DROP CELLS 1+
[2022-10-30] MEDS: CHLORHEXIDINE GLUCONATE 4% CLEANSER FOR DECOLONIZATION TP SCH (21:31)
[2022-10-31] MEDS: FENTANYL NS IVPB 500 MCG/100 ML BAG IVPB SCH ×2 (00:49→05:30)
[2022-10-31] MEDS: HYDROCORTISONE SOD SUCCINATE 100 MG/2 ML VIAL IVPUSH SCH ×3 (02:28→17:31)
[2022-10-31] MEDS: PIPERACILLIN/TAZOB 2.25 GM 2.25 GM in DEXTROSE 5%-WATER - 50 ML IVPB SCH ×4 (03:18→21:23)
[2022-10-31] MEDS: INSULIN SLIDING SCALE (NOVOLOG) 1 VIAL SQ SCH ×4 (03:51→21:28)
[2022-10-31 06:59] LABS: BASO % 0.2 % (0-2.0); HEMATOCRIT 24.6 % (35.4-49); HEMOGLOBIN 8.4 GM/dL (11.7-16.9); LYMPH % 1.5 % (8-40); MCH 27.4 pg (25.7-33.7); MCHC 34.1 g/dl (32.0-35.9); MEAN CELL VOLUME 80.3 fl (80-96); MEAN PLT VOLUME 10.9 fl (7.5-11.1); MONO % 2.4 % (3.8-10.2); NEUT % 95.9 % (42.8-82.8); PLATELET COUNT 45 10^3/uL (134-434); RBC 3.06 M/mm3 (4.00-5.60); RDW 24.4 % (11.9-15.9); WHITE BLOOD COUNT 8.5 K/mm3 (4.0-10.0)
[2022-10-31 07:21] LABS: ALBUMIN 1.6 g/dl (3.4-5.0); BLOOD UREA NITROGEN 58.8 mg/dL (7-18); MAGNESIUM 2.5 mg/dL (1.8-2.4)
[2022-10-31 07:24] LABS: CREATININE 0.6 mg/dL (0.55-1.3); PHOSPHOROUS 3.1 mg/dL (2.5-4.9)
[2022-10-31 07:25] LABS: BILIRUBIN,TOTAL 1.4 mg/dL (0.2-1)
[2022-10-31 09:43] LABS: ANISOCYTOSIS 0; MACROCYTOSIS 0
[2022-10-31] MEDS: PANTOPRAZOLE SODIUM 40 MG VIAL IVPUSH SCH (10:10)
[2022-10-31] MEDS: ZINC OXIDE/PANTHENOL/VITAMIN E 56 GM TUBE TP SCH (10:10)
[2022-10-31] MEDS: DIGOXIN 0.25 MG TABLET PO SCH (10:10)
[2022-10-31] MEDS: COLLAGENASE CLOSTRIDIUM HIST. 30 GRAMS TUBE TP SCH (10:11)
[2022-10-31] MEDS: PHENYLEPHRINE NS PREMIX 50,000 MCG/500 ML BAG CVP SCH (10:11)
[2022-10-31] MEDS ORDERED: ACETAMINOPHEN 1000 MG/100 ML BAG IVPB PRN (10:50)
[2022-10-31] MEDS: FLUCONAZOLE 200 MG/NS 100 ML IVPB SCH (11:30)
[2022-10-31] MEDS: DAPTOMYCIN 300 MG in SODIUM CHLORIDE 50 ML IVPB SCH (11:52)
[2022-10-31] MEDS: morphine SULFATE 4 MG/ML VIAL IVPUSH PRN ×2 (13:04→21:45)
[2022-10-31] MEDS: AMINO ACIDS/PROTEIN HYDROLYS 30 ML LIQUID.PKT PO SCH (16:43)
[2022-10-31] MEDS: CHLORHEXIDINE GLUCONATE 4% CLEANSER FOR DECOLONIZATION TP SCH (22:13)
[2022-11-01] MEDS: HYDROCORTISONE SOD SUCCINATE 100 MG/2 ML VIAL IVPUSH SCH ×3 (02:26→17:04)
[2022-11-01] MEDS: FENTANYL NS IVPB 500 MCG/100 ML BAG IVPB SCH (02:26)
[2022-11-01] MEDS: INSULIN SLIDING SCALE (NOVOLOG) 1 VIAL SQ SCH ×4 (02:30→20:40)
[2022-11-01] MEDS: PIPERACILLIN/TAZOB 2.25 GM 2.25 GM in DEXTROSE 5%-WATER - 50 ML IVPB SCH ×4 (03:00→20:14)
[2022-11-01] MEDS: morphine SULFATE 4 MG/ML VIAL IVPUSH PRN ×2 (08:00→16:09)
[2022-11-01 08:52] LABS: HEMATOCRIT 25.6 % (35.4-49); HEMOGLOBIN 8.5 GM/dL (11.7-16.9); MCH 27.2 pg (25.7-33.7); MCHC 33.2 g/dl (32.0-35.9); MEAN PLT VOLUME 10.5 fl (7.5-11.1); PLATELET COUNT 82 10^3/uL (134-434); RBC 3.12 M/mm3 (4.00-5.60); RDW 24.5 % (11.9-15.9)
[2022-11-01] MEDS: AMINO ACIDS/PROTEIN HYDROLYS 30 ML LIQUID.PKT PO SCH ×2 (09:10→17:04)
[2022-11-01] MEDS: DIGOXIN 0.25 MG TABLET PO SCH (09:10)
[2022-11-01] MEDS: PANTOPRAZOLE SODIUM 40 MG VIAL IVPUSH SCH (09:11)
[2022-11-01] MEDS: FLUCONAZOLE 200 MG/NS 100 ML IVPB SCH (09:11)
[2022-11-01] MEDS: ZINC OXIDE/PANTHENOL/VITAMIN E 56 GM TUBE TP SCH (09:11)
[2022-11-01] MEDS: COLLAGENASE CLOSTRIDIUM HIST. 30 GRAMS TUBE TP SCH (09:11)
[2022-11-01 09:19] LABS: CALCIUM 7.4 mg/dL (8.5-10.1)
[2022-11-01 09:20] LABS: ALBUMIN 1.6 g/dl (3.4-5.0); MAGNESIUM 2.6 mg/dL (1.8-2.4)
[2022-11-01 09:23] LABS: CREATININE 0.6 mg/dL (0.55-1.3); PHOSPHOROUS 2.8 mg/dL (2.5-4.9)
[2022-11-01 09:24] LABS: BILIRUBIN,TOTAL 1.1 mg/dL (0.2-1); TOT PROT 4.2 g/dl (6.4-8.2)
[2022-11-01] MEDS: METOPROLOL TARTRATE 5 MG/5 ML VIAL IVPUSH PRN ×2 (09:34→16:09)
[2022-11-01] MEDS: DAPTOMYCIN 300 MG in SODIUM CHLORIDE 50 ML IVPB SCH (10:04)
[2022-11-01 11:36] LABS: ANISOCYTOSIS 1+; MACROCYTOSIS 1+
[2022-11-01 13:47] LABS: EPI CELLS 36 /uL (0-25.1); HYALINE CASTS 9 /uL (0-3.1); PH,URINE 5.5 (5.0-8.0); URINE APPEARANCE CLOUDY; URINE BACTERIA 26 /uL (0-1359); URINE BILIRUBIN 1+ (NEGATIVE); URINE COLOR DK YELLOW; URINE GLUCOSE (UA) NEGATIVE (NEGATIVE); URINE KETONE NEGATIVE (NEGATIVE); URINE LEUK ESTERASE NEGATIVE (NEGATIVE); URINE NITRITE NEGATIVE (NEGATIVE); URINE PROTEIN 1+ (NEGATIVE); URINE UROBILINOGEN 0.2 mg/dL (0.2-1.0); URINE WBC 31 /uL (0-25.8)
[2022-11-01 14:05] LABS: URINE RBC 48 /uL (0-23.9)
[2022-11-01] MEDS: METOPROLOL TARTRATE 25 MG TABLET (FP) NGT SCH (21:32)
[2022-11-01] MEDS: CHLORHEXIDINE GLUCONATE 4% CLEANSER FOR DECOLONIZATION TP SCH (21:33)
[2022-11-02] MEDS: HYDROCORTISONE SOD SUCCINATE 100 MG/2 ML VIAL IVPUSH SCH ×3 (02:12→18:01)
[2022-11-02] MEDS: INSULIN SLIDING SCALE (NOVOLOG) 1 VIAL SQ SCH ×4 (02:13→17:38)
[2022-11-02] MEDS: PIPERACILLIN/TAZOB 2.25 GM 2.25 GM in DEXTROSE 5%-WATER - 50 ML IVPB SCH ×2 (03:15→09:32)
[2022-11-02] MEDS: FENTANYL NS IVPB 500 MCG/100 ML BAG IVPB SCH ×2 (06:44→09:36)
[2022-11-02] MEDS: VASOPRESSIN 40 UNITS/100 ML BAG IV SCH (07:02)
[2022-11-02 07:57] LABS: CALCIUM 7.4 mg/dL (8.5-10.1)
[2022-11-02 07:58] LABS: ACTIVATED PTT 24.4 SECONDS (25.2-36.5); ALBUMIN 1.5 g/dl (3.4-5.0); BLOOD UREA NITROGEN 54.4 mg/dL (7-18); INR 1.37 (0.83-1.09); MAGNESIUM 2.5 mg/dL (1.8-2.4); PROTHROMBIN TIME (PATIENT) 15.8 SEC (9.7-13.0)
[2022-11-02 08:01] LABS: CREATININE 0.6 mg/dL (0.55-1.3); PHOSPHOROUS 2.2 mg/dL (2.5-4.9)
[2022-11-02 08:02] LABS: BILIRUBIN,TOTAL 0.9 mg/dL (0.2-1); TOT PROT 4.2 g/dl (6.4-8.2)
[2022-11-02] MEDS ORDERED: NAPH,MB-DB/K PH,MBDB POWDER PACKET PO ONE (08:15)
[2022-11-02] MEDS ORDERED: POTASSIUM PHOSPHATE 15 MM in DEXTROSE 5%-WATER - 100 ML IVPB ONE (08:22)
[2022-11-02] MEDS: PANTOPRAZOLE SODIUM 40 MG VIAL IVPUSH SCH (09:40)
[2022-11-02] MEDS: DIGOXIN 0.25 MG TABLET PO SCH (09:40)
[2022-11-02] MEDS: FLUCONAZOLE 200 MG/NS 100 ML IVPB SCH (09:41)
[2022-11-02] MEDS: AMINO ACIDS/PROTEIN HYDROLYS 30 ML LIQUID.PKT PO SCH ×2 (09:42→17:57)
[2022-11-02] MEDS: METOPROLOL TARTRATE 25 MG TABLET (FP) NGT SCH ×2 (09:42→22:28)
[2022-11-02] MEDS: DAPTOMYCIN 300 MG in SODIUM CHLORIDE 50 ML IVPB SCH (09:42)
[2022-11-02] MEDS: ZINC OXIDE/PANTHENOL/VITAMIN E 56 GM TUBE TP SCH (09:42)
[2022-11-02] MEDS: COLLAGENASE CLOSTRIDIUM HIST. 30 GRAMS TUBE TP SCH (09:43)
[2022-11-02 09:54] LABS: HEMATOCRIT 24.9 % (35.4-49); HEMOGLOBIN 8.4 GM/dL (11.7-16.9); MCHC 33.8 g/dl (32.0-35.9); MEAN CELL VOLUME 82.8 fl (80-96); MEAN PLT VOLUME 10.9 fl (7.5-11.1); PLATELET COUNT 114 10^3/uL (134-434); RDW 24.5 % (11.9-15.9); WHITE BLOOD COUNT 8.9 K/mm3 (4.0-10.0)
[2022-11-02 10:17] LABS: ANISOCYTOSIS 1+; MACROCYTOSIS 1+
[2022-11-02] MEDS: MEROPENEM 500 MG in DEXTROSE 5%-WATER 100 ML IVPB SCH ×2 (12:42→18:01)
[2022-11-02] MEDS ORDERED: PROMETHAZINE HCL 25 MG/1 ML VIAL IVPB PRN (22:02)
[2022-11-02] MEDS ORDERED: ONDANSETRON 4 MG/2 ML VIAL IVPUSH PRN (22:02)
[2022-11-02] MEDS ORDERED: LACTATED RINGERS SOLUTION 1,000 ML IV SCH (22:15)
[2022-11-02] MEDS ORDERED: ROCURONIUM BROMIDE 50 MG/5 ML SYRINGE ONE (22:22)
[2022-11-02] MEDS ORDERED: MIDAZOLAM HCL 2 MG/2 ML SINGLE DOSE VIAL ONE (22:22)
[2022-11-02] MEDS ORDERED: ETOMIDATE 20 MG/10 ML VIAL IVPUSH ONE (22:26)
[2022-11-02] MEDS ORDERED: LIDOCAINE HCL/PF 2% SDV 5ML VIAL ONE (22:26)
[2022-11-02] MEDS: CHLORHEXIDINE GLUCONATE 4% CLEANSER FOR DECOLONIZATION TP SCH (22:31)
[2022-11-02] MEDS ORDERED: VECURONIUM BROMIDE 10 MG/10 ML VIAL ONE (22:36)
[2022-11-02] MEDS ORDERED: SODIUM CHLORIDE 0.9% P/F 10 ML VIAL IJ ONE (22:37)
[2022-11-02] MEDS ORDERED: ALBUMIN HUMAN 5% 250 ML IV SOLUTION IV STA (22:54)
[2022-11-02] MEDS ORDERED: ALBUMIN HUMAN 5% 250 ML IV SOLUTION IV ONE ×3 (23:20→23:45)
[2022-11-03] MEDS ORDERED: METHYLENE BLUE 50 MG/10 ML AMPUL ONE (00:09)
[2022-11-03] MEDS ORDERED: PHENYLEPHRINE HCL 10 MG/1 ML SINGLE DOSE VIAL ONE (00:29)
[2022-11-03] MEDS ORDERED: DEXAMETHASONE SOD PHOSPHATE 4 MG/1 ML VIAL ONE (00:55)
[2022-11-03] MEDS ORDERED: ONDANSETRON 4 MG/2 ML VIAL ONE (00:55)
[2022-11-03] MEDS ORDERED: PROPOFOL 1,000,000 MCG/100 ML VIAL ONE (01:15)
[2022-11-03] MEDS: PROPOFOL 1,000,000 MCG/100 ML VIAL IVPB SCH ×2 (01:45→23:51)
[2022-11-03] MEDS ORDERED: LACTATED RINGERS SOLUTION 1,000 ML/1,000 ML INFUS.BAG IV SCH (01:45)
[2022-11-03] MEDS: NOREPINEPHRINE BITARTRATE/D5W 8 MG/250 ML BAG IVPB SCH ×2 (01:46→23:51)
[2022-11-03] MEDS: FENTANYL IVPB 500 MCG/100 ML BAG IVPB SCH ×4 (01:48→23:51)
[2022-11-03 02:02] LABS: HEMATOCRIT 23.1 % (35.4-49); HEMOGLOBIN 7.5 GM/dL (11.7-16.9); MCH 27.1 pg (25.7-33.7); MCHC 32.4 g/dl (32.0-35.9); MEAN CELL VOLUME 83.8 fl (80-96); PLATELET COUNT 134 10^3/uL (134-434); RBC 2.75 M/mm3 (4.00-5.60); WHITE BLOOD COUNT 7.3 K/mm3 (4.0-10.0)
[2022-11-03 02:10] LABS: INR 1.48 (0.83-1.09); PROTHROMBIN TIME (PATIENT) 17.1 SEC (9.7-13.0)
[2022-11-03 02:13] LABS: ACTIVATED PTT 25.8 SECONDS (25.2-36.5)
[2022-11-03 02:23] LABS: CALCIUM 7.3 mg/dL (8.5-10.1)
[2022-11-03 02:24] LABS: ALBUMIN 1.7 g/dl (3.4-5.0); BLOOD UREA NITROGEN 45.2 mg/dL (7-18)
[2022-11-03 02:26] LABS: BILIRUBIN,DIRECT 0.7 mg/dL (0.0-0.2)
[2022-11-03 02:27] LABS: CREATININE 0.5 mg/dL (0.55-1.3)
[2022-11-03 02:28] LABS: TOT PROT 3.8 g/dl (6.4-8.2)
[2022-11-03] MEDS: MEROPENEM 500 MG in DEXTROSE 5%-WATER 100 ML IVPB SCH ×3 (02:32→17:13)
[2022-11-03] MEDS: HYDROCORTISONE SOD SUCCINATE 100 MG/2 ML VIAL IVPUSH SCH ×3 (02:32→17:13)
[2022-11-03] MEDS: INSULIN SLIDING SCALE (NOVOLOG) 1 VIAL SQ SCH ×5 (03:08→23:48)
[2022-11-03 03:12] LABS: LACTIC ACID 3.5 mmol/L (0.4-2.0)
[2022-11-03] MEDS ORDERED: DEXTROSE 5%-WATER - 1,000 ML IV SCH (03:45)
[2022-11-03 06:24] LABS: ANISOCYTOSIS 2+; MACROCYTOSIS 0; OVALOCYTE 2+; TOXIC GRANULATION 2+
[2022-11-03 06:36] LABS: PLATELET ESTIMATE DECREASED
[2022-11-03 06:57] LABS: HEMATOCRIT 24.5 % (35.4-49); HEMOGLOBIN 7.7 GM/dL (11.7-16.9); MCH 26.3 pg (25.7-33.7); MCHC 31.3 g/dl (32.0-35.9); MEAN CELL VOLUME 84.1 fl (80-96); MEAN PLT VOLUME 11.6 fl (7.5-11.1); PLATELET COUNT 164 10^3/uL (134-434); RBC 2.91 M/mm3 (4.00-5.60); RDW 23.8 % (11.9-15.9); WHITE BLOOD COUNT 14.8 K/mm3 (4.0-10.0)
[2022-11-03 07:21] LABS: ALBUMIN 1.7 g/dl (3.4-5.0); BLOOD UREA NITROGEN 46.2 mg/dL (7-18); CALCIUM 7.4 mg/dL (8.5-10.1); MAGNESIUM 2.3 mg/dL (1.8-2.4)
[2022-11-03 07:24] LABS: CREATININE 0.5 mg/dL (0.55-1.3); PHOSPHOROUS 3.2 mg/dL (2.5-4.9)
[2022-11-03] MEDS: ZINC OXIDE/PANTHENOL/VITAMIN E 56 GM TUBE TP SCH (09:17)
[2022-11-03] MEDS: AMINO ACIDS/PROTEIN HYDROLYS 30 ML LIQUID.PKT PO SCH ×3 (09:17→17:17)
[2022-11-03] MEDS: COLLAGENASE CLOSTRIDIUM HIST. 30 GRAMS TUBE TP SCH (09:17)
[2022-11-03] MEDS: PANTOPRAZOLE SODIUM 40 MG VIAL IVPUSH SCH (09:17)
[2022-11-03] MEDS: METOPROLOL TARTRATE 25 MG TABLET (FP) NGT SCH ×2 (09:39→21:16)
[2022-11-03] MEDS: DIGOXIN 0.25 MG TABLET PO SCH (09:39)
[2022-11-03] MEDS: DAPTOMYCIN 300 MG in SODIUM CHLORIDE 50 ML IVPB SCH (09:54)
[2022-11-03] MEDS: FLUCONAZOLE 200 MG/NS 100 ML IVPB SCH (11:20)
[2022-11-03] MEDS: DEXTROSE 5%-WATER - 1,000 ML IV SCH (12:25)
[2022-11-03] MEDS: CHLORHEXIDINE GLUCONATE 4% CLEANSER FOR DECOLONIZATION TP SCH (21:16)
[2022-11-04] MEDS: MEROPENEM 500 MG in DEXTROSE 5%-WATER 100 ML IVPB SCH ×3 (03:13→17:05)
[2022-11-04] MEDS: HYDROCORTISONE SOD SUCCINATE 100 MG/2 ML VIAL IVPUSH SCH ×3 (03:14→21:44)
[2022-11-04] MEDS: FENTANYL IVPB 500 MCG/100 ML BAG IVPB SCH ×4 (05:00→22:45)
[2022-11-04] MEDS: PROPOFOL 1,000,000 MCG/100 ML VIAL IVPB SCH ×3 (05:29→20:14)
[2022-11-04] MEDS: INSULIN SLIDING SCALE (NOVOLOG) 1 VIAL SQ SCH ×3 (05:29→17:16)
[2022-11-04] MEDS: NOREPINEPHRINE BITARTRATE/D5W 8 MG/250 ML BAG IVPB SCH (05:29)
[2022-11-04 07:53] LABS: HEMATOCRIT 22.1 % (35.4-49); HEMOGLOBIN 7.3 GM/dL (11.7-16.9); MCH 27.3 pg (25.7-33.7); MCHC 33.1 g/dl (32.0-35.9); MEAN CELL VOLUME 82.6 fl (80-96); MEAN PLT VOLUME 12.3 fl (7.5-11.1); PLATELET COUNT 160 10^3/uL (134-434); RBC 2.68 M/mm3 (4.00-5.60); RDW 23.9 % (11.9-15.9); WHITE BLOOD COUNT 14.2 K/mm3 (4.0-10.0)
[2022-11-04 08:53] LABS: CALCIUM 7.3 mg/dL (8.5-10.1)
[2022-11-04 08:54] LABS: ALBUMIN 1.6 g/dl (3.4-5.0); BLOOD UREA NITROGEN 39.5 mg/dL (7-18); MAGNESIUM 2.2 mg/dL (1.8-2.4)
[2022-11-04] MEDS: AMINO ACIDS/PROTEIN HYDROLYS 30 ML LIQUID.PKT PO SCH ×3 (08:55→16:41)
[2022-11-04 08:57] LABS: CREATININE 0.5 mg/dL (0.55-1.3); PHOSPHOROUS 3.1 mg/dL (2.5-4.9)
[2022-11-04 08:59] LABS: BILIRUBIN,TOTAL 0.5 mg/dL (0.2-1); TOT PROT 3.9 g/dl (6.4-8.2)
[2022-11-04] MEDS: METOPROLOL TARTRATE 25 MG TABLET (FP) NGT SCH (09:34)
[2022-11-04] MEDS: COLLAGENASE CLOSTRIDIUM HIST. 30 GRAMS TUBE TP SCH (09:34)
[2022-11-04] MEDS: PANTOPRAZOLE SODIUM 40 MG VIAL IVPUSH SCH (09:34)
[2022-11-04] MEDS: FLUCONAZOLE 200 MG/NS 100 ML IVPB SCH (09:34)
[2022-11-04] MEDS: DIGOXIN 0.25 MG TABLET PO SCH (09:35)
[2022-11-04] MEDS: ZINC OXIDE/PANTHENOL/VITAMIN E 56 GM TUBE TP SCH (09:35)
[2022-11-04] MEDS: DAPTOMYCIN 300 MG in SODIUM CHLORIDE 50 ML IVPB SCH (09:55)
[2022-11-04] MEDS: DEXTROSE 5%-WATER - 1,000 ML IV SCH ×2 (13:00→23:34)
[2022-11-04] MEDS ORDERED: ONDANSETRON 4 MG/2 ML VIAL IVPUSH PRN (14:35)
[2022-11-04] MEDS ORDERED: METOPROLOL TARTRATE 5 MG/5 ML VIAL IVPUSH PRN (14:35)
[2022-11-04] MEDS: CHLORHEXIDINE GLUCONATE 4% CLEANSER FOR DECOLONIZATION TP SCH (21:44)
[2022-11-05] MEDS: INSULIN SLIDING SCALE (NOVOLOG) 1 VIAL SQ SCH ×4 (00:16→17:28)
[2022-11-05] MEDS: MEROPENEM 500 MG in DEXTROSE 5%-WATER 100 ML IVPB SCH ×2 (01:27→09:30)
[2022-11-05] MEDS: NOREPINEPHRINE BITARTRATE/D5W 8 MG/250 ML BAG IVPB SCH ×4 (01:33→21:30)
[2022-11-05] MEDS: PROPOFOL 1,000,000 MCG/100 ML VIAL IVPB SCH ×4 (02:20→22:29)
[2022-11-05] MEDS: FENTANYL IVPB 500 MCG/100 ML BAG IVPB SCH ×4 (02:48→16:21)
[2022-11-05 05:25] LABS: BASO % 0.2 % (0-2.0); HEMATOCRIT 22.7 % (35.4-49); HEMOGLOBIN 7.5 GM/dL (11.7-16.9); LYMPH % 1.1 % (8-40); MEAN CELL VOLUME 81.9 fl (80-96); MEAN PLT VOLUME 11.4 fl (7.5-11.1); NEUT % 96.7 % (42.8-82.8); PLATELET COUNT 155 10^3/uL (134-434); RBC 2.77 M/mm3 (4.00-5.60); RDW 23.2 % (11.9-15.9); WHITE BLOOD COUNT 21.3 K/mm3 (4.0-10.0)
[2022-11-05 05:47] LABS: ALBUMIN 1.5 g/dl (3.4-5.0); BLOOD UREA NITROGEN 25.5 mg/dL (7-18)
[2022-11-05 05:50] LABS: CREATININE 0.3 mg/dL (0.55-1.3); PHOSPHOROUS 2.4 mg/dL (2.5-4.9)
[2022-11-05 05:51] LABS: BILIRUBIN,TOTAL 0.5 mg/dL (0.2-1)
[2022-11-05 05:52] LABS: TOT PROT 3.7 g/dl (6.4-8.2)
[2022-11-05] MEDS: AMINO ACIDS/PROTEIN HYDROLYS 30 ML LIQUID.PKT PO SCH ×3 (07:35→16:38)
[2022-11-05] MEDS ORDERED: POTASSIUM PHOSPHATE 15 MM in DEXTROSE 5%-WATER - 100 ML IVPB ONE (09:00)
[2022-11-05 09:23] LABS: ANISOCYTOSIS 2+; MACROCYTOSIS 1+
[2022-11-05] MEDS: HYDROCORTISONE SOD SUCCINATE 100 MG/2 ML VIAL IVPUSH SCH ×2 (09:30→22:35)
[2022-11-05] MEDS: COLLAGENASE CLOSTRIDIUM HIST. 30 GRAMS TUBE TP SCH (09:30)
[2022-11-05] MEDS ORDERED: PANTOPRAZOLE SODIUM 40 MG VIAL IVPUSH SCH (10:00)
[2022-11-05] MEDS ORDERED: FLUCONAZOLE 200 MG/NS 100 ML IVPB SCH (10:00)
[2022-11-05] MEDS ORDERED: ZINC OXIDE/PANTHENOL/VITAMIN E 56 GM TUBE TP SCH (10:00)
[2022-11-05] MEDS: DAPTOMYCIN 300 MG in SODIUM CHLORIDE 50 ML IVPB SCH (10:36)
[2022-11-05] MEDS: DEXTROSE 5%-WATER - 1,000 ML IV SCH ×2 (13:16→16:21)
[2022-11-05] MEDS ORDERED: FENTANYL NS IVPB 500 MCG/100 ML BAG IVPB ONE (14:27)
[2022-11-05] MEDS ORDERED: ROCURONIUM BROMIDE 50 MG/5 ML SYRINGE ONE ×2 (16:12→18:45)
[2022-11-05] MEDS ORDERED: MEROPENEM 1 GM VIAL (RESTRICTED TO ID) IVPB ONE ×2 (17:35→17:40)
[2022-11-05] MEDS ORDERED: MEROPENEM 1 GM in DEXTROSE 5%-WATER 100 ML IVPB SCH (18:00)
[2022-11-05] MEDS ORDERED: ONDANSETRON 4 MG/2 ML VIAL IVPUSH PRN (21:14)
[2022-11-05] MEDS ORDERED: ACETAMINOPHEN 1000 MG/100 ML BAG IVPB PRN (21:14)
[2022-11-05] MEDS ORDERED: DEXTROSE 5%-WATER - 1,000 ML IV SCH (21:14)
[2022-11-05] MEDS: FENTANYL NS IVPB 500 MCG/100 ML BAG IVPB SCH (21:31)
[2022-11-05] MEDS ORDERED: MUPIROCIN 2% TOPICAL OINTMENT FOR DECOLONIZATION NS SCH (22:00)
[2022-11-05] MEDS ORDERED: CHLORHEXIDINE GLUCONATE 4% CLEANSER FOR DECOLONIZATION TP SCH (22:00)
[2022-11-05] MEDS: CHLORHEXIDINE GLUCONATE 4% CLEANSER FOR DECOLONIZATION TP SCH (22:33)
[2022-11-05] MEDS: MUPIROCIN 2% TOPICAL OINTMENT FOR DECOLONIZATION NS SCH (22:33)
[2022-11-06] MEDS: INSULIN SLIDING SCALE (NOVOLOG) 1 VIAL SQ SCH ×5 (01:02→23:27)
[2022-11-06] MEDS: MEROPENEM 1 GM in DEXTROSE 5%-WATER 100 ML IVPB SCH ×3 (02:10→17:38)
[2022-11-06] MEDS: AMINO ACIDS/PROTEIN HYDROLYS 30 ML LIQUID.PKT PO SCH ×2 (08:02→12:06)
[2022-11-06 08:07] LABS: INR 1.3 (0.83-1.09)
[2022-11-06 08:17] LABS: HEMATOCRIT 32.2 % (35.4-49); HEMOGLOBIN 10.9 GM/dL (11.7-16.9); MCHC 33.9 g/dl (32.0-35.9); MEAN CELL VOLUME 82.4 fl (80-96); MEAN PLT VOLUME 12.7 fl (7.5-11.1); PLATELET COUNT 120 10^3/uL (134-434); RBC 3.91 M/mm3 (4.00-5.60); RDW 20.5 % (11.9-15.9)
[2022-11-06 08:26] LABS: CALCIUM 7.2 mg/dL (8.5-10.1)
[2022-11-06 08:27] LABS: ALBUMIN 1.6 g/dl (3.4-5.0); BLOOD UREA NITROGEN 18.4 mg/dL (7-18); MAGNESIUM 1.9 mg/dL (1.8-2.4)
[2022-11-06 08:30] LABS: CREATININE 0.3 mg/dL (0.55-1.3); PHOSPHOROUS 2.2 mg/dL (2.5-4.9)
[2022-11-06 08:31] LABS: TOT PROT 3.9 g/dl (6.4-8.2)
[2022-11-06 08:32] LABS: BILIRUBIN,TOTAL 1.4 mg/dL (0.2-1)
[2022-11-06 09:13] LABS: ANISOCYTOSIS 1+; MACROCYTOSIS 1+
[2022-11-06] MEDS ORDERED: POTASSIUM PHOSPHATE 15 MM in SODIUM CHLORIDE 100 ML IVPB ONE (10:00)
[2022-11-06] MEDS ORDERED: ENOXAPARIN NA (PORCINE) 40 MG/0.4 ML DISP.SYRIN SQ SCH (10:00)
[2022-11-06] MEDS: MUPIROCIN 2% TOPICAL OINTMENT FOR DECOLONIZATION NS SCH ×2 (10:21→21:35)
[2022-11-06] MEDS: DAPTOMYCIN 300 MG in SODIUM CHLORIDE 50 ML IVPB SCH (10:21)
[2022-11-06] MEDS: ZINC OXIDE/PANTHENOL/VITAMIN E 56 GM TUBE TP SCH (10:21)
[2022-11-06] MEDS: FLUCONAZOLE 200 MG/NS 100 ML IVPB SCH (10:22)
[2022-11-06] MEDS: PANTOPRAZOLE SODIUM 40 MG VIAL IVPUSH SCH (10:23)
[2022-11-06] MEDS: HYDROCORTISONE SOD SUCCINATE 100 MG/2 ML VIAL IVPUSH SCH ×2 (10:23→21:36)
[2022-11-06 10:38] LABS: WHITE BLOOD COUNT 34.4 K/mm3 (4.0-10.0)
[2022-11-06] MEDS ORDERED: NOREPINEPHRINE BITARTRATE 4 MG/4 ML ML IV ONE (11:28)
[2022-11-06] MEDS ORDERED: CALCIUM GLUCONATE 10% - 1,000 MG/10 ML VIAL IVPB ONE (12:00)
[2022-11-06] MEDS: FENTANYL NS IVPB 500 MCG/100 ML BAG IVPB SCH ×2 (15:12→21:34)
[2022-11-06] MEDS ORDERED: [UNRECOGNIZED DRUG - OTHER] IVPB SCH (16:00)
[2022-11-06] MEDS ORDERED: MAGNESIUM SULFATE IVPB SCH (16:00)
[2022-11-06] MEDS ORDERED: SODIUM CHLORIDE IVPB SCH (16:00)
[2022-11-06] MEDS ORDERED: POTASSIUM PHOSPHATE IVPB SCH (16:00)
[2022-11-06 18:10] LABS: ARTERIAL BLD GAS O2 SATURATION 93.4 % (95-98); ARTERIAL BLOOD GAS BASE EXCESS 1.1 mmol/L (-2-2); ARTERIAL BLOOD GAS pH 7.432 (7.350-7.450)
[2022-11-06 19:02] LABS: VENT RATE 20
[2022-11-06] MEDS: NOREPINEPHRINE BITARTRATE/D5W 8 MG/250 ML BAG IVPB SCH (21:34)
[2022-11-06] MEDS: PROPOFOL 1,000,000 MCG/100 ML VIAL IVPB SCH (21:34)
[2022-11-06] MEDS: CHLORHEXIDINE GLUCONATE 4% CLEANSER FOR DECOLONIZATION TP SCH (21:35)
[2022-11-06] MEDS: FAT EMUL/SOY/MCT/OLIV/FISH OIL 250 ML IV SCH (21:36)
[2022-11-07] MEDS: MEROPENEM 1 GM in DEXTROSE 5%-WATER 100 ML IVPB SCH ×3 (01:16→17:48)
[2022-11-07] MEDS: FENTANYL NS IVPB 500 MCG/100 ML BAG IVPB SCH ×2 (02:23→06:30)
[2022-11-07] MEDS: INSULIN SLIDING SCALE (NOVOLOG) 1 VIAL SQ SCH ×4 (05:37→23:03)
[2022-11-07 07:03] LABS: HEMATOCRIT 29.5 % (35.4-49); HEMOGLOBIN 9.8 GM/dL (11.7-16.9); MCH 27.2 pg (25.7-33.7); MCHC 33.3 g/dl (32.0-35.9); MEAN CELL VOLUME 81.5 fl (80-96); MEAN PLT VOLUME 12.5 fl (7.5-11.1); PLATELET COUNT 105 10^3/uL (134-434); RBC 3.61 M/mm3 (4.00-5.60); RDW 20.6 % (11.9-15.9); WHITE BLOOD COUNT 27.3 K/mm3 (4.0-10.0)
[2022-11-07 07:25] LABS: CHLORIDE 110 mmol/L (98-107); SODIUM 141 mmol/L (136-145)
[2022-11-07 07:28] LABS: ALBUMIN 1.4 g/dl (3.4-5.0); ANION GAP 3 MMOL/L (8-16); CO2 27 mmol/L (21-32); GLUCOSE,RANDOM 173 mg/dL (74-106); MAGNESIUM 1.8 mg/dL (1.8-2.4)
[2022-11-07 07:31] LABS: CREATININE 0.2 mg/dL (0.55-1.3); PHOSPHOROUS 2.3 mg/dL (2.5-4.9); SGOT/AST 59 U/L (15-37); SGPT/ALT 43 U/L (13-61)
[2022-11-07 07:33] LABS: BILIRUBIN,TOTAL 1.1 mg/dL (0.2-1); TOT PROT 3.7 g/dl (6.4-8.2)
[2022-11-07 07:34] LABS: ALK PHOS 139 U/L (45-117)
[2022-11-07 07:37] LABS: CALCIUM 6.9 mg/dL (8.5-10.1)
[2022-11-07] MEDS: AMINO ACIDS/PROTEIN HYDROLYS 30 ML LIQUID.PKT PO SCH ×2 (08:18→08:19)
[2022-11-07] MEDS ORDERED: CALCIUM GLUCONATE 10% - 1,000 MG/10 ML VIAL IVPUSH ONE (10:50)
[2022-11-07] MEDS: ZINC OXIDE/PANTHENOL/VITAMIN E 56 GM TUBE TP SCH (10:50)
[2022-11-07] MEDS: DAPTOMYCIN 300 MG in SODIUM CHLORIDE 50 ML IVPB SCH (10:50)
[2022-11-07] MEDS: MUPIROCIN 2% TOPICAL OINTMENT FOR DECOLONIZATION NS SCH ×2 (10:50→21:35)
[2022-11-07] MEDS: ENOXAPARIN NA (PORCINE) 40 MG/0.4 ML DISP.SYRIN SQ SCH ×2 (10:51→21:35)
[2022-11-07] MEDS: FLUCONAZOLE 200 MG/NS 100 ML IVPB SCH (10:51)
[2022-11-07] MEDS: PANTOPRAZOLE SODIUM 40 MG VIAL IVPUSH SCH (10:54)
[2022-11-07] MEDS: HYDROCORTISONE SOD SUCCINATE 100 MG/2 ML VIAL IVPUSH SCH ×3 (10:54→21:37)
[2022-11-07] MEDS ORDERED: POTASSIUM PHOSPHATE 15 MM in SODIUM CHLORIDE 100 ML IVPB ONE (11:15)
[2022-11-07] MEDS: CALCIUM 500MG/VIT-D 200 UNITS COMBO TABLET (FP) NGT SCH ×2 (11:27→21:36)
[2022-11-07] MEDS ORDERED: THIAMINE HCL 200 MG/2 ML VIAL IVPB SCH (13:00)
[2022-11-07] MEDS ORDERED: POTASSIUM PHOSPHATE IVPB SCH (16:00)
[2022-11-07] MEDS ORDERED: MAGNESIUM SULFATE IVPB SCH (16:00)
[2022-11-07] MEDS ORDERED: [UNRECOGNIZED DRUG - OTHER] IVPB SCH (16:00)
[2022-11-07] MEDS ORDERED: SODIUM CHLORIDE IVPB SCH (16:00)
[2022-11-07] MEDS: CHLORHEXIDINE GLUCONATE 4% CLEANSER FOR DECOLONIZATION TP SCH (21:35)
[2022-11-07] MEDS: NOREPINEPHRINE BITARTRATE/D5W 8 MG/250 ML BAG IVPB SCH (21:35)
[2022-11-07] MEDS: FAT EMUL/SOY/MCT/OLIV/FISH OIL 250 ML IV SCH (21:36)
[2022-11-07] MEDS: FENTANYL CITRATE/PF 50 MCG/ML VIAL IVPUSH PRN (21:39)
[2022-11-08] MEDS: MEROPENEM 1 GM in DEXTROSE 5%-WATER 100 ML IVPB SCH ×3 (02:47→18:18)
[2022-11-08] MEDS: INSULIN SLIDING SCALE (NOVOLOG) 1 VIAL SQ SCH ×3 (06:18→18:18)
[2022-11-08 07:10] LABS: CALCIUM 7.2 mg/dL (8.5-10.1)
[2022-11-08 07:11] LABS: ALBUMIN 1.5 g/dl (3.4-5.0); BLOOD UREA NITROGEN 31.1 mg/dL (7-18); MAGNESIUM 1.9 mg/dL (1.8-2.4)
[2022-11-08 07:14] LABS: CREATININE 0.2 mg/dL (0.55-1.3); PHOSPHOROUS 2.1 mg/dL (2.5-4.9)
[2022-11-08 07:15] LABS: BILIRUBIN,TOTAL 0.7 mg/dL (0.2-1)
[2022-11-08 07:16] LABS: TOT PROT 3.9 g/dl (6.4-8.2)
[2022-11-08 08:23] LABS: HEMATOCRIT 30.6 % (35.4-49); HEMOGLOBIN 9.9 GM/dL (11.7-16.9); MCH 26.8 pg (25.7-33.7); MCHC 32.4 g/dl (32.0-35.9); MEAN CELL VOLUME 82.8 fl (80-96); PLATELET COUNT 108 10^3/uL (134-434); RDW 20.9 % (11.9-15.9); WHITE BLOOD COUNT 24.5 K/mm3 (4.0-10.0)
[2022-11-08] MEDS: FENTANYL CITRATE/PF 50 MCG/ML VIAL IVPUSH PRN ×2 (08:41→16:10)
[2022-11-08] MEDS: AMINO ACIDS/PROTEIN HYDROLYS 30 ML LIQUID.PKT PO SCH (09:07)
[2022-11-08] MEDS: MUPIROCIN 2% TOPICAL OINTMENT FOR DECOLONIZATION NS SCH ×2 (09:07→21:43)
[2022-11-08] MEDS: PANTOPRAZOLE SODIUM 40 MG VIAL IVPUSH SCH (09:07)
[2022-11-08] MEDS: NAPH,MB-DB/K PH,MBDB POWDER PACKET NGT SCH ×2 (09:08→21:43)
[2022-11-08] MEDS: ENOXAPARIN NA (PORCINE) 40 MG/0.4 ML DISP.SYRIN SQ SCH ×2 (09:08→21:43)
[2022-11-08] MEDS: CALCIUM 500MG/VIT-D 200 UNITS COMBO TABLET (FP) NGT SCH ×2 (09:08→21:43)
[2022-11-08] MEDS: METOPROLOL TARTRATE 5 MG/5 ML VIAL IVPUSH PRN (09:13)
[2022-11-08] MEDS: ZINC OXIDE/PANTHENOL/VITAMIN E 56 GM TUBE TP SCH (09:14)
[2022-11-08] MEDS ORDERED: POTASSIUM PHOSPHATE 15 MM in DEXTROSE 5%-WATER - 250 ML IVPB ONE (10:00)
[2022-11-08] MEDS: HYDROCORTISONE SOD SUCCINATE 100 MG/2 ML VIAL IVPUSH SCH ×2 (10:09→21:44)
[2022-11-08 10:26] LABS: ANISOCYTOSIS 2+; MACROCYTOSIS 1+
[2022-11-08] MEDS: DAPTOMYCIN 300 MG in SODIUM CHLORIDE 50 ML IVPB SCH (10:26)
[2022-11-08] MEDS: FLUCONAZOLE 200 MG/NS 100 ML IVPB SCH (11:25)
[2022-11-08] MEDS: ACETAMINOPHEN 1000 MG/100 ML BAG IVPB PRN (14:52)
[2022-11-08] MEDS: NOREPINEPHRINE BITARTRATE/D5W 8 MG/250 ML BAG IVPB SCH (21:42)
[2022-11-08] MEDS: CHLORHEXIDINE GLUCONATE 4% CLEANSER FOR DECOLONIZATION TP SCH (21:43)
[2022-11-08] MEDS: FAT EMUL/SOY/MCT/OLIV/FISH OIL 250 ML IV SCH (21:44)
[2022-11-09] MEDS: INSULIN SLIDING SCALE (NOVOLOG) 1 VIAL SQ SCH ×4 (01:32→17:27)
[2022-11-09] MEDS: MEROPENEM 1 GM in DEXTROSE 5%-WATER 100 ML IVPB SCH ×3 (02:18→17:43)
[2022-11-09 07:22] LABS: HEMATOCRIT 26.8 % (35.4-49); HEMOGLOBIN 8.8 GM/dL (11.7-16.9); MCHC 32.8 g/dl (32.0-35.9); MEAN CELL VOLUME 82.5 fl (80-96); MEAN PLT VOLUME 11.5 fl (7.5-11.1); PLATELET COUNT 109 10^3/uL (134-434); RBC 3.25 M/mm3 (4.00-5.60); RDW 20.9 % (11.9-15.9); WHITE BLOOD COUNT 13.7 K/mm3 (4.0-10.0)
[2022-11-09] MEDS: FENTANYL CITRATE/PF 50 MCG/ML VIAL IVPUSH PRN (07:42)
[2022-11-09 07:46] LABS: CALCIUM 7.2 mg/dL (8.5-10.1)
[2022-11-09 07:47] LABS: ALBUMIN 1.4 g/dl (3.4-5.0); BLOOD UREA NITROGEN 35.2 mg/dL (7-18)
[2022-11-09 07:50] LABS: CREATININE 0.2 mg/dL (0.55-1.3); PHOSPHOROUS 1.6 mg/dL (2.5-4.9)
[2022-11-09 07:51] LABS: BILIRUBIN,TOTAL 0.7 mg/dL (0.2-1); TOT PROT 3.7 g/dl (6.4-8.2)
[2022-11-09] MEDS: AMINO ACIDS/PROTEIN HYDROLYS 30 ML LIQUID.PKT PO SCH ×3 (09:30→17:27)
[2022-11-09] MEDS: MUPIROCIN 2% TOPICAL OINTMENT FOR DECOLONIZATION NS SCH ×2 (09:30→21:34)
[2022-11-09] MEDS: ZINC OXIDE/PANTHENOL/VITAMIN E 56 GM TUBE TP SCH (09:30)
[2022-11-09] MEDS: CALCIUM 500MG/VIT-D 200 UNITS COMBO TABLET (FP) NGT SCH ×2 (09:31→21:34)
[2022-11-09] MEDS: ENOXAPARIN NA (PORCINE) 40 MG/0.4 ML DISP.SYRIN SQ SCH ×2 (09:31→21:34)
[2022-11-09] MEDS ORDERED: NAPH,MB-DB/K PH,MBDB POWDER PACKET PO ONE (09:45)
[2022-11-09] MEDS ORDERED: POTASSIUM PHOSPHATE 15 MM in DEXTROSE 5%-WATER - 250 ML IVPB ONE (10:00)
[2022-11-09 10:14] LABS: ANISOCYTOSIS 2+
[2022-11-09] MEDS: FLUCONAZOLE 200 MG/NS 100 ML IVPB SCH (10:40)
[2022-11-09] MEDS: HYDROCORTISONE SOD SUCCINATE 100 MG/2 ML VIAL IVPUSH SCH ×2 (10:41→21:35)
[2022-11-09] MEDS: PANTOPRAZOLE SODIUM 40 MG VIAL IVPUSH SCH (11:57)
[2022-11-09] MEDS: DAPTOMYCIN 300 MG in SODIUM CHLORIDE 50 ML IVPB SCH (11:57)
[2022-11-09] MEDS: ACETAMINOPHEN 1000 MG/100 ML BAG IVPB PRN (11:58)
[2022-11-09 12:00] LABS: HIV INTERPRETATION NEGATIVE (NEGATIVE)
[2022-11-09] MEDS: SIMETHICONE 40 MG/0.6 ML BOTTLE GT PRN (19:53)
[2022-11-09] MEDS ORDERED: FENTANYL IVPB 500 MCG/100 ML BAG IVPB SCH (20:45)
[2022-11-09] MEDS ORDERED: DEXMEDETOMIDINE PREMIX 400 MCG/100 ML BAG IVPB SCH (21:00)
[2022-11-09] MEDS: NOREPINEPHRINE BITARTRATE/D5W 8 MG/250 ML BAG IVPB SCH (21:33)
[2022-11-09] MEDS: CHLORHEXIDINE GLUCONATE 4% CLEANSER FOR DECOLONIZATION TP SCH (21:34)
[2022-11-10] MEDS: INSULIN SLIDING SCALE (NOVOLOG) 1 VIAL SQ SCH ×4 (01:19→17:48)
[2022-11-10] MEDS: MEROPENEM 1 GM in DEXTROSE 5%-WATER 100 ML IVPB SCH ×2 (02:18→09:52)
[2022-11-10] MEDS ORDERED: MIDAZOLAM HCL 2 MG/2 ML SINGLE DOSE VIAL ONE (05:03)
[2022-11-10] MEDS ORDERED: MIDAZOLAM HCL 2 MG/2 ML SINGLE DOSE VIAL IVPUSH ONE ×2 (05:05→05:49)
[2022-11-10] MEDS ORDERED: MIDAZOLAM HCL 5 MG/1 ML Single Dose Vial ONE (05:09)
[2022-11-10] MEDS ORDERED: EPINEPHrine 1:10,000 (P-F SYR) 1 MG/10 ML DISP.SYRIN ONE (05:09)
[2022-11-10] MEDS ORDERED: PROPOFOL 1,000,000 MCG/100 ML VIAL IVPB SCH (05:15)
[2022-11-10] MEDS ORDERED: levETIRAcetam 500 MG/5 ML INJECTION VIAL IVPB ONE (05:45)
[2022-11-10 07:16] LABS: HEMATOCRIT 24.7 % (35.4-49); HEMOGLOBIN 8.1 GM/dL (11.7-16.9); MCH 27.5 pg (25.7-33.7); MEAN CELL VOLUME 83.3 fl (80-96); MEAN PLT VOLUME 11.4 fl (7.5-11.1); PLATELET COUNT 110 10^3/uL (134-434); RBC 2.97 M/mm3 (4.00-5.60); RDW 20.5 % (11.9-15.9); WHITE BLOOD COUNT 9.6 K/mm3 (4.0-10.0)
[2022-11-10 07:26] LABS: ALBUMIN 1.4 g/dl (3.4-5.0); MAGNESIUM 2.1 mg/dL (1.8-2.4)
[2022-11-10 07:29] LABS: CREATININE 0.2 mg/dL (0.55-1.3); PHOSPHOROUS 2.5 mg/dL (2.5-4.9)
[2022-11-10 07:30] LABS: BILIRUBIN,TOTAL 0.5 mg/dL (0.2-1); TOT PROT 3.6 g/dl (6.4-8.2)
[2022-11-10] MEDS: levETIRAcetam 500 MG/5 ML INJECTION VIAL IVPB SCH ×2 (09:16→21:39)
[2022-11-10] MEDS: AMINO ACIDS/PROTEIN HYDROLYS 30 ML LIQUID.PKT PO SCH ×3 (09:52→17:31)
[2022-11-10] MEDS: ENOXAPARIN NA (PORCINE) 40 MG/0.4 ML DISP.SYRIN SQ SCH ×2 (09:52→21:39)
[2022-11-10] MEDS: HYDROCORTISONE SOD SUCCINATE 100 MG/2 ML VIAL IVPUSH SCH (09:53)
[2022-11-10] MEDS: PANTOPRAZOLE SODIUM 40 MG VIAL IVPUSH SCH (09:53)
[2022-11-10] MEDS: LORazepam 2 MG/ML SDV VIAL IVPUSH PRN (10:10)
[2022-11-10] MEDS: CALCIUM 500MG/VIT-D 200 UNITS COMBO TABLET (FP) NGT SCH ×2 (10:18→21:39)
[2022-11-10] MEDS: FLUCONAZOLE 200 MG/NS 100 ML IVPB SCH (10:18)
[2022-11-10] MEDS: ZINC OXIDE/PANTHENOL/VITAMIN E 56 GM TUBE TP SCH (10:18)
[2022-11-10] MEDS: MUPIROCIN 2% TOPICAL OINTMENT FOR DECOLONIZATION NS SCH (10:18)
[2022-11-10] MEDS: DAPTOMYCIN 300 MG in SODIUM CHLORIDE 50 ML IVPB SCH (12:09)
[2022-11-10] MEDS: CEFEPIME 2 GM in DEXTROSE 5%-WATER 100 ML IVPB SCH ×2 (14:10→17:31)
[2022-11-10] MEDS: CHLORHEXIDINE GLUCONATE 4% CLEANSER FOR DECOLONIZATION TP SCH (21:39)
[2022-11-11] MEDS: INSULIN SLIDING SCALE (NOVOLOG) 1 VIAL SQ SCH ×4 (00:55→17:02)
[2022-11-11] MEDS: CEFEPIME 2 GM in DEXTROSE 5%-WATER 100 ML IVPB SCH ×3 (02:14→17:10)
[2022-11-11] MEDS: HYDROmorphone HCl 2 MG/ML VIAL IVPUSH PRN (04:55)
[2022-11-11 07:39] LABS: HEMATOCRIT 26.1 % (35.4-49); HEMOGLOBIN 8.4 GM/dL (11.7-16.9); MCH 27.7 pg (25.7-33.7); MCHC 32.3 g/dl (32.0-35.9); MEAN CELL VOLUME 85.8 fl (80-96); PLATELET COUNT 145 10^3/uL (134-434); RBC 3.04 M/mm3 (4.00-5.60); RDW 20.5 % (11.9-15.9); WHITE BLOOD COUNT 12.7 K/mm3 (4.0-10.0)
[2022-11-11 07:45] LABS: ALBUMIN 1.4 g/dl (3.4-5.0); BLOOD UREA NITROGEN 42.1 mg/dL (7-18); CALCIUM 7.1 mg/dL (8.5-10.1)
[2022-11-11 07:48] LABS: CREATININE 0.2 mg/dL (0.55-1.3); PHOSPHOROUS 2.1 mg/dL (2.5-4.9)
[2022-11-11 07:50] LABS: BILIRUBIN,TOTAL 0.5 mg/dL (0.2-1); TOT PROT 3.6 g/dl (6.4-8.2)
[2022-11-11] MEDS: AMINO ACIDS/PROTEIN HYDROLYS 30 ML LIQUID.PKT PO SCH ×3 (10:15→17:11)
[2022-11-11] MEDS: ZINC OXIDE/PANTHENOL/VITAMIN E 56 GM TUBE TP SCH (10:15)
[2022-11-11] MEDS: ENOXAPARIN NA (PORCINE) 40 MG/0.4 ML DISP.SYRIN SQ SCH ×2 (10:16→22:29)
[2022-11-11] MEDS: levETIRAcetam 500 MG/5 ML INJECTION VIAL IVPB SCH ×2 (10:16→22:29)
[2022-11-11] MEDS: PANTOPRAZOLE SODIUM 40 MG VIAL IVPUSH SCH (10:16)
[2022-11-11] MEDS: CALCIUM 500MG/VIT-D 200 UNITS COMBO TABLET (FP) NGT SCH ×2 (10:35→22:30)
[2022-11-11] MEDS: DAPTOMYCIN 300 MG in SODIUM CHLORIDE 50 ML IVPB SCH (12:35)
[2022-11-11] MEDS: FLUCONAZOLE 200 MG/NS 100 ML IVPB SCH (12:35)
[2022-11-11] MEDS: CHLORHEXIDINE GLUCONATE 4% CLEANSER FOR DECOLONIZATION TP SCH (22:29)
[2022-11-11] MEDS: SIMETHICONE 40 MG/0.6 ML BOTTLE GT PRN (22:30)
[2022-11-12] MEDS: INSULIN SLIDING SCALE (NOVOLOG) 1 VIAL SQ SCH ×5 (00:32→22:00)
[2022-11-12] MEDS: CEFEPIME 2 GM in DEXTROSE 5%-WATER 100 ML IVPB SCH ×3 (01:27→18:03)
[2022-11-12 06:57] LABS: HEMATOCRIT 24.2 % (35.4-49); HEMOGLOBIN 7.9 GM/dL (11.7-16.9); MCH 27.3 pg (25.7-33.7); MCHC 32.7 g/dl (32.0-35.9); MEAN CELL VOLUME 83.5 fl (80-96); MEAN PLT VOLUME 12.1 fl (7.5-11.1); PLATELET COUNT 123 10^3/uL (134-434); RDW 20.3 % (11.9-15.9)
[2022-11-12 07:19] LABS: CHLORIDE 112 mmol/L (98-107); SODIUM 143 mmol/L (136-145)
[2022-11-12 07:24] LABS: ALBUMIN 1.3 g/dl (3.4-5.0); ANION GAP 3 MMOL/L (8-16); BLOOD UREA NITROGEN 37.4 mg/dL (7-18); CO2 28 mmol/L (21-32); GLUCOSE,RANDOM 107 mg/dL (74-106)
[2022-11-12 07:27] LABS: CREATININE 0.2 mg/dL (0.55-1.3); PHOSPHOROUS 1.7 mg/dL (2.5-4.9); SGOT/AST 121 U/L (15-37); SGPT/ALT 88 U/L (13-61)
[2022-11-12 07:28] LABS: BILIRUBIN,TOTAL 0.4 mg/dL (0.2-1); TOT PROT 3.5 g/dl (6.4-8.2)
[2022-11-12 07:30] LABS: ALK PHOS 157 U/L (45-117)
[2022-11-12 07:48] LABS: CALCIUM 6.9 mg/dL (8.5-10.1)
[2022-11-12] MEDS ORDERED: SODIUM PHOSPHATE - 15 MM in DEXTROSE 5%-WATER - 250 ML IVPB ONE (09:00)
[2022-11-12] MEDS: AMINO ACIDS/PROTEIN HYDROLYS 30 ML LIQUID.PKT PO SCH ×3 (10:00→18:03)
[2022-11-12] MEDS: ZINC OXIDE/PANTHENOL/VITAMIN E 56 GM TUBE TP SCH (10:01)
[2022-11-12] MEDS: DAPTOMYCIN 300 MG in SODIUM CHLORIDE 50 ML IVPB SCH (10:01)
[2022-11-12] MEDS: PANTOPRAZOLE SODIUM 40 MG VIAL IVPUSH SCH (10:02)
[2022-11-12] MEDS: ENOXAPARIN NA (PORCINE) 40 MG/0.4 ML DISP.SYRIN SQ SCH ×2 (10:02→22:44)
[2022-11-12] MEDS: levETIRAcetam 500 MG/5 ML INJECTION VIAL IVPB SCH ×2 (10:03→22:44)
[2022-11-12] MEDS: CALCIUM 500MG/VIT-D 200 UNITS COMBO TABLET (FP) NGT SCH ×2 (10:04→22:45)
[2022-11-12] MEDS: SIMETHICONE 40 MG/0.6 ML BOTTLE GT PRN (10:50)
[2022-11-12] MEDS: FLUCONAZOLE 200 MG/NS 100 ML IVPB SCH (14:47)
[2022-11-12] MEDS: CHLORHEXIDINE GLUCONATE 4% CLEANSER FOR DECOLONIZATION TP SCH (22:44)
[2022-11-13] MEDS: CEFEPIME 2 GM in DEXTROSE 5%-WATER 100 ML IVPB SCH ×3 (04:48→18:03)
[2022-11-13] MEDS: INSULIN SLIDING SCALE (NOVOLOG) 1 VIAL SQ SCH ×3 (06:47→18:53)
[2022-11-13] MEDS: LORazepam 2 MG/ML SDV VIAL IVPUSH PRN (06:48)
[2022-11-13 08:08] LABS: HEMATOCRIT 24.5 % (35.4-49); MCH 27.5 pg (25.7-33.7); MCHC 32.6 g/dl (32.0-35.9); MEAN CELL VOLUME 84.3 fl (80-96); MEAN PLT VOLUME 11.5 fl (7.5-11.1); PLATELET COUNT 122 10^3/uL (134-434); RBC 2.91 M/mm3 (4.00-5.60); RDW 19.9 % (11.9-15.9); WHITE BLOOD COUNT 10.6 K/mm3 (4.0-10.0)
[2022-11-13 08:14] LABS: CHLORIDE 113 mmol/L (98-107); SODIUM 144 mmol/L (136-145)
[2022-11-13 08:30] LABS: SGPT/ALT 84 U/L (13-61)
[2022-11-13 08:31] LABS: BILIRUBIN,TOTAL 0.5 mg/dL (0.2-1); PHOSPHOROUS 2.4 mg/dL (2.5-4.9)
[2022-11-13 08:33] LABS: ALK PHOS 143 U/L (45-117); TOT PROT 3.6 g/dl (6.4-8.2)
[2022-11-13 08:37] LABS: ALBUMIN 1.3 g/dl (3.4-5.0); BLOOD UREA NITROGEN 37.7 mg/dL (7-18); GLUCOSE,RANDOM 97 mg/dL (74-106)
[2022-11-13 08:38] LABS: ANION GAP 4 MMOL/L (8-16); CO2 27 mmol/L (21-32)
[2022-11-13 08:40] LABS: CREATININE < 0.2 mg/dL (0.55-1.3); SGOT/AST 104 U/L (15-37)
[2022-11-13 08:45] LABS: CALCIUM 6.9 mg/dL (8.5-10.1)
[2022-11-13] MEDS: DAPTOMYCIN 300 MG in SODIUM CHLORIDE 50 ML IVPB SCH (10:16)
[2022-11-13] MEDS: FLUCONAZOLE 200 MG/NS 100 ML IVPB SCH (10:16)
[2022-11-13] MEDS: AMINO ACIDS/PROTEIN HYDROLYS 30 ML LIQUID.PKT PO SCH ×3 (10:19→18:02)
[2022-11-13] MEDS: MIDODRINE HCL 5 MG TABLET PO SCH ×3 (10:19→18:03)
[2022-11-13] MEDS: CALCIUM 500MG/VIT-D 200 UNITS COMBO TABLET (FP) NGT SCH ×3 (10:19→22:33)
[2022-11-13] MEDS: SIMETHICONE 40 MG/0.6 ML BOTTLE GT PRN ×2 (10:20→22:34)
[2022-11-13] MEDS: ZINC OXIDE/PANTHENOL/VITAMIN E 56 GM TUBE TP SCH (10:21)
[2022-11-13] MEDS: PANTOPRAZOLE SODIUM 40 MG VIAL IVPUSH SCH (10:43)
[2022-11-13] MEDS: levETIRAcetam 500 MG/5 ML INJECTION VIAL IVPB SCH ×2 (10:43→22:33)
[2022-11-13] MEDS: ENOXAPARIN NA (PORCINE) 80 MG/0.8 ML DISP.SYRIN SQ SCH ×2 (10:44→22:33)
[2022-11-13] MEDS ORDERED: ARTIFICIAL TEARS (POLYVINYL ALCOHOL) OPTH DROPS OU PRN (11:35)
[2022-11-13] MEDS: CHLORHEXIDINE GLUCONATE 4% CLEANSER FOR DECOLONIZATION TP SCH (22:33)
[2022-11-14] MEDS: INSULIN SLIDING SCALE (NOVOLOG) 1 VIAL SQ SCH ×4 (00:22→17:40)
[2022-11-14] MEDS: CEFEPIME 2 GM in DEXTROSE 5%-WATER 100 ML IVPB SCH ×3 (01:22→17:40)
[2022-11-14] MEDS ORDERED: LACTATED RINGERS SOLUTION 1000 ML INFUS.BAG IV ONE (03:03)
[2022-11-14] MEDS ORDERED: ALBUTEROL SO4 0.083% IH SOL 2.5 MG/3 ML VIAL.NEB. NEB PRN (03:04)
[2022-11-14] MEDS ORDERED: MIDODRINE HCL 5 MG TABLET PO ONE (03:06)
[2022-11-14] MEDS ORDERED: NOREPINEPHRINE BITARTRATE/D5W 8 MG/250 ML BAG IVPB SCH (04:15)
[2022-11-14] MEDS: NOREPINEPHRINE 0.9 % NACL 8 MG/250 ML BAG IVPB SCH (04:32)
[2022-11-14 08:15] LABS: HEMATOCRIT 24.6 % (35.4-49); HEMOGLOBIN 8.1 GM/dL (11.7-16.9); MCH 27.6 pg (25.7-33.7); MCHC 32.7 g/dl (32.0-35.9); MEAN CELL VOLUME 84.2 fl (80-96); MEAN PLT VOLUME 11.5 fl (7.5-11.1); PLATELET COUNT 154 10^3/uL (134-434); RBC 2.93 M/mm3 (4.00-5.60); RDW 20.5 % (11.9-15.9); WHITE BLOOD COUNT 10.9 K/mm3 (4.0-10.0)
[2022-11-14 08:33] LABS: CHLORIDE 113 mmol/L (98-107); SODIUM 143 mmol/L (136-145)
[2022-11-14 08:35] LABS: ANION GAP 3 MMOL/L (8-16); BLOOD UREA NITROGEN 42.8 mg/dL (7-18); CO2 27 mmol/L (21-32)
[2022-11-14 08:36] LABS: ALBUMIN 1.3 g/dl (3.4-5.0); GLUCOSE,RANDOM 154 mg/dL (74-106)
[2022-11-14 08:38] LABS: PHOSPHOROUS 1.6 mg/dL (2.5-4.9); SGPT/ALT 86 U/L (13-61)
[2022-11-14 08:39] LABS: CREATININE 0.2 mg/dL (0.55-1.3); SGOT/AST 91 U/L (15-37); TOT PROT 3.6 g/dl (6.4-8.2)
[2022-11-14 08:40] LABS: BILIRUBIN,TOTAL 0.4 mg/dL (0.2-1)
[2022-11-14 08:42] LABS: ALK PHOS 133 U/L (45-117)
[2022-11-14 08:46] LABS: CALCIUM 6.9 mg/dL (8.5-10.1)
[2022-11-14] MEDS ORDERED: MIDODRINE HCL 5 MG TABLET PO SCH (10:00)
[2022-11-14] MEDS: DAPTOMYCIN 300 MG in SODIUM CHLORIDE 50 ML IVPB SCH (10:11)
[2022-11-14] MEDS: levETIRAcetam 500 MG/5 ML INJECTION VIAL IVPB SCH ×2 (10:11→21:07)
[2022-11-14] MEDS: ENOXAPARIN NA (PORCINE) 80 MG/0.8 ML DISP.SYRIN SQ SCH ×2 (10:12→21:06)
[2022-11-14] MEDS: AMINO ACIDS/PROTEIN HYDROLYS 30 ML LIQUID.PKT PO SCH ×3 (10:12→17:40)
[2022-11-14] MEDS: ZINC OXIDE/PANTHENOL/VITAMIN E 56 GM TUBE TP SCH (10:14)
[2022-11-14] MEDS: CALCIUM 500MG/VIT-D 200 UNITS COMBO TABLET (FP) NGT SCH ×2 (10:14→22:14)
[2022-11-14] MEDS: PANTOPRAZOLE SODIUM 40 MG VIAL IVPUSH SCH (10:16)
[2022-11-14] MEDS: FLUCONAZOLE 200 MG/NS 100 ML IVPB SCH (12:28)
[2022-11-14] MEDS ORDERED: SODIUM PHOSPHATE - 30 MM in SODIUM CHLORIDE 250 ML IVPB ONE (13:00)
[2022-11-14] MEDS: MIDODRINE HCL 5 MG TABLET PO SCH ×2 (13:33→17:40)
[2022-11-14] MEDS ORDERED: LORazepam 2 MG/ML SDV VIAL IVPUSH ONE (14:58)
[2022-11-14] MEDS: LORazepam 2 MG/ML SDV VIAL IVPUSH PRN (15:02)
[2022-11-14] MEDS: CHLORHEXIDINE GLUCONATE 4% CLEANSER FOR DECOLONIZATION TP SCH (21:13)
[2022-11-15] MEDS: INSULIN SLIDING SCALE (NOVOLOG) 1 VIAL SQ SCH ×4 (01:32→17:41)
[2022-11-15] MEDS: CEFEPIME 2 GM in DEXTROSE 5%-WATER 100 ML IVPB SCH ×3 (01:37→17:40)
[2022-11-15] MEDS: NOREPINEPHRINE 0.9 % NACL 8 MG/250 ML BAG IVPB SCH ×2 (01:39→13:59)
[2022-11-15 07:46] LABS: CHLORIDE 115 mmol/L (98-107); SODIUM 144 mmol/L (136-145)
[2022-11-15] MEDS: LORazepam 2 MG/ML SDV VIAL IVPUSH PRN (07:51)
[2022-11-15 07:54] LABS: ALBUMIN 1.3 g/dl (3.4-5.0); ANION GAP 2 MMOL/L (8-16); BLOOD UREA NITROGEN 40.4 mg/dL (7-18); CO2 27 mmol/L (21-32); GLUCOSE,RANDOM 141 mg/dL (74-106); MAGNESIUM 1.9 mg/dL (1.8-2.4)
[2022-11-15 07:56] LABS: CREATININE 0.2 mg/dL (0.55-1.3); SGOT/AST 59 U/L (15-37)
[2022-11-15 07:57] LABS: PHOSPHOROUS 1.6 mg/dL (2.5-4.9); SGPT/ALT 76 U/L (13-61)
[2022-11-15 07:59] LABS: ALK PHOS 114 U/L (45-117); BILIRUBIN,TOTAL 0.4 mg/dL (0.2-1); TOT PROT 3.8 g/dl (6.4-8.2)
[2022-11-15 08:01] LABS: MCH 28.5 pg (25.7-33.7); MCHC 33.3 g/dl (32.0-35.9); MEAN CELL VOLUME 85.8 fl (80-96); MEAN PLT VOLUME 11.6 fl (7.5-11.1); PLATELET COUNT 151 10^3/uL (134-434); RDW 19.9 % (11.9-15.9); WHITE BLOOD COUNT 8.8 K/mm3 (4.0-10.0)
[2022-11-15 08:16] LABS: CALCIUM 6.8 mg/dL (8.5-10.1)
[2022-11-15] MEDS: levETIRAcetam 500 MG/5 ML INJECTION VIAL IVPB SCH ×2 (09:09→21:59)
[2022-11-15] MEDS: FLUCONAZOLE 200 MG/NS 100 ML IVPB SCH (09:18)
[2022-11-15] MEDS: ZINC OXIDE/PANTHENOL/VITAMIN E 56 GM TUBE TP SCH (09:23)
[2022-11-15] MEDS: AMINO ACIDS/PROTEIN HYDROLYS 30 ML LIQUID.PKT PO SCH ×3 (09:23→17:40)
[2022-11-15] MEDS: DAPTOMYCIN 300 MG in SODIUM CHLORIDE 50 ML IVPB SCH (09:23)
[2022-11-15] MEDS: CALCIUM 500MG/VIT-D 200 UNITS COMBO TABLET (FP) NGT SCH ×2 (09:24→22:00)
[2022-11-15] MEDS: ENOXAPARIN NA (PORCINE) 80 MG/0.8 ML DISP.SYRIN SQ SCH ×2 (09:24→21:59)
[2022-11-15] MEDS: MIDODRINE HCL 5 MG TABLET PO SCH ×3 (09:25→17:40)
[2022-11-15] MEDS: PANTOPRAZOLE SODIUM 40 MG VIAL IVPUSH SCH (09:25)
[2022-11-15] MEDS ORDERED: SODIUM PHOSPHATE - 30 MM in SODIUM CHLORIDE 250 ML IVPB ONE (10:00)
[2022-11-15] MEDS ORDERED: TRIMETHOBENZAMIDE HCL 200MG/2ML INJ IM ONE (13:53)
[2022-11-15] MEDS: CHLORHEXIDINE GLUCONATE 4% CLEANSER FOR DECOLONIZATION TP SCH (22:00)
[2022-11-16] MEDS: INSULIN SLIDING SCALE (NOVOLOG) 1 VIAL SQ SCH ×4 (00:35→17:48)
[2022-11-16] MEDS: CEFEPIME 2 GM in DEXTROSE 5%-WATER 100 ML IVPB SCH ×3 (01:42→17:48)
[2022-11-16] MEDS: NOREPINEPHRINE 0.9 % NACL 8 MG/250 ML BAG IVPB SCH (04:43)
[2022-11-16 07:15] LABS: HEMATOCRIT 22.7 % (35.4-49); HEMOGLOBIN 7.6 GM/dL (11.7-16.9); MCH 28.5 pg (25.7-33.7); MCHC 33.6 g/dl (32.0-35.9); MEAN CELL VOLUME 84.9 fl (80-96); MEAN PLT VOLUME 11.1 fl (7.5-11.1); PLATELET COUNT 135 10^3/uL (134-434); RBC 2.67 M/mm3 (4.00-5.60); RDW 19.5 % (11.9-15.9); WHITE BLOOD COUNT 6.4 K/mm3 (4.0-10.0)
[2022-11-16 07:33] LABS: CHLORIDE 114 mmol/L (98-107); SODIUM 144 mmol/L (136-145)
[2022-11-16 07:36] LABS: ALBUMIN 1.3 g/dl (3.4-5.0); ANION GAP 4 MMOL/L (8-16); BLOOD UREA NITROGEN 39.6 mg/dL (7-18); CO2 26 mmol/L (21-32); GLUCOSE,RANDOM 123 mg/dL (74-106); MAGNESIUM 1.9 mg/dL (1.8-2.4)
[2022-11-16 07:38] LABS: SGPT/ALT 70 U/L (13-61)
[2022-11-16 07:39] LABS: CREATININE 0.2 mg/dL (0.55-1.3); PHOSPHOROUS 1.8 mg/dL (2.5-4.9); SGOT/AST 48 U/L (15-37)
[2022-11-16 07:40] LABS: BILIRUBIN,TOTAL 0.3 mg/dL (0.2-1); TOT PROT 3.9 g/dl (6.4-8.2)
[2022-11-16 07:42] LABS: ALK PHOS 106 U/L (45-117)
[2022-11-16 07:58] LABS: CALCIUM 6.8 mg/dL (8.5-10.1)
[2022-11-16] MEDS: levETIRAcetam 500 MG/5 ML INJECTION VIAL IVPB SCH ×2 (08:07→21:59)
[2022-11-16] MEDS: PANTOPRAZOLE SODIUM 40 MG VIAL IVPUSH SCH (09:07)
[2022-11-16] MEDS: ENOXAPARIN NA (PORCINE) 80 MG/0.8 ML DISP.SYRIN SQ SCH ×2 (09:07→22:00)
[2022-11-16] MEDS: AMINO ACIDS/PROTEIN HYDROLYS 30 ML LIQUID.PKT PO SCH ×3 (09:07→17:48)
[2022-11-16] MEDS: CALCIUM 500MG/VIT-D 200 UNITS COMBO TABLET (FP) NGT SCH ×2 (09:08→22:10)
[2022-11-16] MEDS: MIDODRINE HCL 5 MG TABLET PO SCH ×3 (09:08→17:48)
[2022-11-16] MEDS: DAPTOMYCIN 300 MG in SODIUM CHLORIDE 50 ML IVPB SCH (09:41)
[2022-11-16] MEDS: COLLAGENASE CLOSTRIDIUM HIST. 30 GRAMS TUBE TP SCH (09:41)
[2022-11-16] MEDS: ZINC OXIDE/PANTHENOL/VITAMIN E 56 GM TUBE TP SCH (09:41)
[2022-11-16] MEDS: LORazepam 2 MG/ML SDV VIAL IVPUSH PRN ×2 (09:44→23:26)
[2022-11-16] MEDS: FLUCONAZOLE 200 MG/NS 100 ML IVPB SCH (09:45)
[2022-11-16] MEDS ORDERED: SODIUM PHOSPHATE - 30 MM in SODIUM CHLORIDE 250 ML IVPB ONE (10:00)
[2022-11-16] MEDS: CHLORHEXIDINE GLUCONATE 4% CLEANSER FOR DECOLONIZATION TP SCH (22:00)
[2022-11-17] MEDS: INSULIN SLIDING SCALE (NOVOLOG) 1 VIAL SQ SCH ×5 (00:37→23:19)
[2022-11-17] MEDS: CEFEPIME 2 GM in DEXTROSE 5%-WATER 100 ML IVPB SCH ×3 (02:29→17:40)
[2022-11-17] MEDS: LORazepam 2 MG/ML SDV VIAL IVPUSH PRN (05:48)
[2022-11-17 07:34] LABS: HEMOGLOBIN 7.4 GM/dL (11.7-16.9); MCH 28.6 pg (25.7-33.7); MCHC 33.8 g/dl (32.0-35.9); MEAN CELL VOLUME 84.6 fl (80-96); MEAN PLT VOLUME 11.1 fl (7.5-11.1); PLATELET COUNT 148 10^3/uL (134-434); RDW 19.4 % (11.9-15.9); WHITE BLOOD COUNT 7.7 K/mm3 (4.0-10.0)
[2022-11-17 07:47] LABS: CHLORIDE 116 mmol/L (98-107); SODIUM 145 mmol/L (136-145)
[2022-11-17 07:55] LABS: ALBUMIN 1.3 g/dl (3.4-5.0); ANION GAP 4 MMOL/L (8-16); BLOOD UREA NITROGEN 38.5 mg/dL (7-18); CO2 25 mmol/L (21-32); CREATININE < 0.2 mg/dL (0.55-1.3); GLUCOSE,RANDOM 92 mg/dL (74-106); MAGNESIUM 1.9 mg/dL (1.8-2.4)
[2022-11-17 07:56] LABS: SGOT/AST 40 U/L (15-37)
[2022-11-17 07:57] LABS: BILIRUBIN,TOTAL 0.4 mg/dL (0.2-1); TOT PROT 3.8 g/dl (6.4-8.2)
[2022-11-17 07:58] LABS: ALK PHOS 98 U/L (45-117); PHOSPHOROUS 1.8 mg/dL (2.5-4.9); SGPT/ALT 63 U/L (13-61)
[2022-11-17] MEDS: AMINO ACIDS/PROTEIN HYDROLYS 30 ML LIQUID.PKT PO SCH ×3 (08:03→17:30)
[2022-11-17] MEDS: levETIRAcetam 500 MG/5 ML INJECTION VIAL IVPB SCH ×2 (08:03→21:10)
[2022-11-17 08:44] LABS: CALCIUM 6.8 mg/dL (8.5-10.1)
[2022-11-17] MEDS: CALCIUM 500MG/VIT-D 200 UNITS COMBO TABLET (FP) NGT SCH ×2 (09:37→21:11)
[2022-11-17] MEDS: COLLAGENASE CLOSTRIDIUM HIST. 30 GRAMS TUBE TP SCH (09:37)
[2022-11-17] MEDS: MIDODRINE HCL 5 MG TABLET PO SCH ×3 (09:37→19:21)
[2022-11-17] MEDS: PANTOPRAZOLE SODIUM 40 MG VIAL IVPUSH SCH (09:37)
[2022-11-17] MEDS: ENOXAPARIN NA (PORCINE) 80 MG/0.8 ML DISP.SYRIN SQ SCH ×2 (09:37→21:10)
[2022-11-17] MEDS: ZINC OXIDE/PANTHENOL/VITAMIN E 56 GM TUBE TP SCH (09:38)
[2022-11-17] MEDS: FLUCONAZOLE 200 MG/NS 100 ML IVPB SCH (12:21)
[2022-11-17] MEDS: DAPTOMYCIN 300 MG in SODIUM CHLORIDE 50 ML IVPB SCH (12:26)
[2022-11-17] MEDS: NOREPINEPHRINE 0.9 % NACL 8 MG/250 ML BAG IVPB SCH ×2 (20:11→22:54)
[2022-11-17] MEDS: CHLORHEXIDINE GLUCONATE 4% CLEANSER FOR DECOLONIZATION TP SCH (21:10)
[2022-11-18] MEDS: CEFEPIME 2 GM in DEXTROSE 5%-WATER 100 ML IVPB SCH ×3 (01:35→19:12)
[2022-11-18] MEDS: NOREPINEPHRINE 0.9 % NACL 8 MG/250 ML BAG IVPB SCH (04:33)
[2022-11-18] MEDS: LORazepam 2 MG/ML SDV VIAL IVPUSH PRN (04:34)
[2022-11-18] MEDS: INSULIN SLIDING SCALE (NOVOLOG) 1 VIAL SQ SCH ×4 (06:03→23:51)
[2022-11-18] MEDS: levETIRAcetam 500 MG/5 ML INJECTION VIAL IVPB SCH ×2 (06:03→21:19)
[2022-11-18 07:26] LABS: BASO % 0.5 % (0-2.0); EOS % 0.5 % (0-4.5); HEMATOCRIT 20.4 % (35.4-49); LYMPH % 3.1 % (8-40); MCH 28.3 pg (25.7-33.7); MCHC 33.5 g/dl (32.0-35.9); MEAN CELL VOLUME 84.5 fl (80-96); MEAN PLT VOLUME 10.8 fl (7.5-11.1); NEUT % 90.9 % (42.8-82.8); PLATELET COUNT 132 10^3/uL (134-434); RBC 2.42 M/mm3 (4.00-5.60); RDW 20.3 % (11.9-15.9); WHITE BLOOD COUNT 5.4 K/mm3 (4.0-10.0)
[2022-11-18 07:36] LABS: CHLORIDE 116 mmol/L (98-107); SODIUM 143 mmol/L (136-145)
[2022-11-18 07:39] LABS: ANION GAP 1 MMOL/L (8-16); BLOOD UREA NITROGEN 39.3 mg/dL (7-18); CO2 25 mmol/L (21-32)
[2022-11-18 07:40] LABS: ALBUMIN 1.2 g/dl (3.4-5.0); GLUCOSE,RANDOM 129 mg/dL (74-106); MAGNESIUM 1.8 mg/dL (1.8-2.4)
[2022-11-18 07:42] LABS: PHOSPHOROUS 1.2 mg/dL (2.5-4.9); SGPT/ALT 54 U/L (13-61)
[2022-11-18 07:43] LABS: CREATININE 0.2 mg/dL (0.55-1.3); SGOT/AST 34 U/L (15-37)
[2022-11-18 07:44] LABS: ALK PHOS 94 U/L (45-117); BILIRUBIN,TOTAL 0.3 mg/dL (0.2-1); TOT PROT 3.8 g/dl (6.4-8.2)
[2022-11-18 08:13] LABS: HEMOGLOBIN 6.9 GM/dL (11.7-16.9)
[2022-11-18 08:26] LABS: CALCIUM 6.6 mg/dL (8.5-10.1)
[2022-11-18] MEDS: AMINO ACIDS/PROTEIN HYDROLYS 30 ML LIQUID.PKT PO SCH ×3 (08:44→19:12)
[2022-11-18] MEDS: ZINC OXIDE/PANTHENOL/VITAMIN E 56 GM TUBE TP SCH (09:27)
[2022-11-18] MEDS: DAPTOMYCIN 300 MG in SODIUM CHLORIDE 50 ML IVPB SCH (09:28)
[2022-11-18] MEDS: ENOXAPARIN NA (PORCINE) 80 MG/0.8 ML DISP.SYRIN SQ SCH ×2 (09:28→21:19)
[2022-11-18] MEDS: CALCIUM 500MG/VIT-D 200 UNITS COMBO TABLET (FP) NGT SCH ×2 (09:28→21:40)
[2022-11-18] MEDS: PANTOPRAZOLE SODIUM 40 MG VIAL IVPUSH SCH (09:29)
[2022-11-18] MEDS: COLLAGENASE CLOSTRIDIUM HIST. 30 GRAMS TUBE TP SCH (09:29)
[2022-11-18] MEDS: MIDODRINE HCL 5 MG TABLET PO SCH ×3 (09:29→19:13)
[2022-11-18] MEDS: FLUCONAZOLE 200 MG/NS 100 ML IVPB SCH (11:39)
[2022-11-18] MEDS: HYDROmorphone HCl 2 MG/ML VIAL IVPUSH PRN (16:14)
[2022-11-18] MEDS ORDERED: FUROSEMIDE 40 MG/4 ML INJECTABLE VIAL IVPUSH ONE (20:43)
[2022-11-18] MEDS: CHLORHEXIDINE GLUCONATE 4% CLEANSER FOR DECOLONIZATION TP SCH (21:19)
[2022-11-19] MEDS: CEFEPIME 2 GM in DEXTROSE 5%-WATER 100 ML IVPB SCH ×3 (01:21→17:03)
[2022-11-19] MEDS: NOREPINEPHRINE 0.9 % NACL 8 MG/250 ML BAG IVPB SCH (04:30)
[2022-11-19] MEDS: INSULIN SLIDING SCALE (NOVOLOG) 1 VIAL SQ SCH ×3 (06:07→17:12)
[2022-11-19] MEDS: levETIRAcetam 500 MG/5 ML INJECTION VIAL IVPB SCH ×2 (06:07→22:12)
[2022-11-19 07:44] LABS: HEMATOCRIT 27.9 % (35.4-49); HEMOGLOBIN 9.4 GM/dL (11.7-16.9); MCH 27.4 pg (25.7-33.7); MCHC 33.6 g/dl (32.0-35.9); MEAN CELL VOLUME 81.4 fl (80-96); MEAN PLT VOLUME 9.9 fl (7.5-11.1); PLATELET COUNT 117 10^3/uL (134-434); RBC 3.42 M/mm3 (4.00-5.60); WHITE BLOOD COUNT 5.7 K/mm3 (4.0-10.0)
[2022-11-19 07:59] LABS: CHLORIDE 116 mmol/L (98-107); SODIUM 146 mmol/L (136-145)
[2022-11-19 08:06] LABS: ALBUMIN 1.3 g/dl (3.4-5.0); ANION GAP 3 MMOL/L (8-16); CO2 28 mmol/L (21-32); MAGNESIUM 1.8 mg/dL (1.8-2.4)
[2022-11-19 08:08] LABS: GLUCOSE,RANDOM 136 mg/dL (74-106); PHOSPHOROUS 1.3 mg/dL (2.5-4.9); SGOT/AST 31 U/L (15-37); SGPT/ALT 52 U/L (13-61)
[2022-11-19 08:10] LABS: BILIRUBIN,TOTAL 0.5 mg/dL (0.2-1); BLOOD UREA NITROGEN 38.4 mg/dL (7-18)
[2022-11-19 08:11] LABS: ALK PHOS 102 U/L (45-117)
[2022-11-19 08:13] LABS: CREATININE 0.2 mg/dL (0.55-1.3)
[2022-11-19 08:14] LABS: CALCIUM 6.9 mg/dL (8.5-10.1)
[2022-11-19] MEDS ORDERED: SODIUM PHOSPHATE - 30 MM in DEXTROSE 5%-WATER - 250 ML IVPB ONE (09:14)
[2022-11-19] MEDS: ARTIFICIAL TEARS (POLYVINYL ALCOHOL) OPTH DROPS OU SCH ×2 (09:46→22:12)
[2022-11-19] MEDS: PANTOPRAZOLE SODIUM 40 MG VIAL IVPUSH SCH (09:46)
[2022-11-19] MEDS: DAPTOMYCIN 300 MG in SODIUM CHLORIDE 50 ML IVPB SCH (09:46)
[2022-11-19] MEDS: ENOXAPARIN NA (PORCINE) 80 MG/0.8 ML DISP.SYRIN SQ SCH ×2 (09:46→22:13)
[2022-11-19] MEDS: CALCIUM 500MG/VIT-D 200 UNITS COMBO TABLET (FP) NGT SCH (09:48)
[2022-11-19] MEDS: ZINC OXIDE/PANTHENOL/VITAMIN E 56 GM TUBE TP SCH (09:48)
[2022-11-19] MEDS: MIDODRINE HCL 5 MG TABLET PO SCH ×3 (09:48→17:12)
[2022-11-19] MEDS: AMINO ACIDS/PROTEIN HYDROLYS 30 ML LIQUID.PKT PO SCH ×3 (09:48→17:03)
[2022-11-19] MEDS: COLLAGENASE CLOSTRIDIUM HIST. 30 GRAMS TUBE TP SCH (09:49)
[2022-11-19] MEDS: NYSTATIN 500,000 UNITS/5 ML SUSPENSION PO SCH ×2 (12:34→17:12)
[2022-11-19] MEDS: FLUCONAZOLE 200 MG/NS 100 ML IVPB SCH (12:34)
[2022-11-19] MEDS: SIMETHICONE 40 MG/0.6 ML BOTTLE GT PRN (16:56)
[2022-11-19] MEDS: CHLORHEXIDINE GLUCONATE 4% CLEANSER FOR DECOLONIZATION TP SCH (22:09)
[2022-11-19] MEDS: NAPH,MB-DB/K PH,MBDB POWDER PACKET GT SCH (22:13)
[2022-11-20] MEDS: INSULIN SLIDING SCALE (NOVOLOG) 1 VIAL SQ SCH ×4 (00:35→18:49)
[2022-11-20] MEDS: NYSTATIN 500,000 UNITS/5 ML SUSPENSION PO SCH ×4 (01:05→17:36)
[2022-11-20] MEDS: CEFEPIME 2 GM in DEXTROSE 5%-WATER 100 ML IVPB SCH ×3 (01:05→17:36)
[2022-11-20] MEDS: NOREPINEPHRINE 0.9 % NACL 8 MG/250 ML BAG IVPB SCH (04:00)
[2022-11-20] MEDS: NAPH,MB-DB/K PH,MBDB POWDER PACKET GT SCH ×2 (05:57→14:24)
[2022-11-20] MEDS: levETIRAcetam 500 MG/5 ML INJECTION VIAL IVPB SCH ×2 (06:02→21:18)
[2022-11-20 08:05] LABS: CHLORIDE 115 mmol/L (98-107); SODIUM 144 mmol/L (136-145)
[2022-11-20 08:13] LABS: CALCIUM 7.2 mg/dL (8.5-10.1)
[2022-11-20 08:14] LABS: ALBUMIN 1.2 g/dl (3.4-5.0); ANION GAP 2 MMOL/L (8-16); CO2 27 mmol/L (21-32); GLUCOSE,RANDOM 119 mg/dL (74-106)
[2022-11-20 08:16] LABS: PHOSPHOROUS 1.6 mg/dL (2.5-4.9); SGPT/ALT 48 U/L (13-61)
[2022-11-20 08:17] LABS: CREATININE < 0.2 mg/dL (0.55-1.3); SGOT/AST 26 U/L (15-37)
[2022-11-20 08:18] LABS: BILIRUBIN,TOTAL 0.3 mg/dL (0.2-1)
[2022-11-20 08:19] LABS: ALK PHOS 108 U/L (45-117)
[2022-11-20 08:24] LABS: HEMATOCRIT 27.5 % (35.4-49); HEMOGLOBIN 9.4 GM/dL (11.7-16.9); MCHC 34.3 g/dl (32.0-35.9); MEAN CELL VOLUME 81.7 fl (80-96); MEAN PLT VOLUME 10.2 fl (7.5-11.1); PLATELET COUNT 119 10^3/uL (134-434); RBC 3.36 M/mm3 (4.00-5.60); RDW 18.8 % (11.9-15.9); WHITE BLOOD COUNT 4.7 K/mm3 (4.0-10.0)
[2022-11-20] MEDS ORDERED: SODIUM PHOSPHATE - 30 MM in DEXTROSE 5%-WATER - 250 ML IVPB ONE (09:26)
[2022-11-20] MEDS: AMINO ACIDS/PROTEIN HYDROLYS 30 ML LIQUID.PKT PO SCH ×3 (10:27→17:35)
[2022-11-20] MEDS: DAPTOMYCIN 300 MG in SODIUM CHLORIDE 50 ML IVPB SCH (10:28)
[2022-11-20] MEDS: MIDODRINE HCL 5 MG TABLET PO SCH ×3 (10:29→17:35)
[2022-11-20] MEDS: PANTOPRAZOLE SODIUM 40 MG VIAL IVPUSH SCH (10:29)
[2022-11-20] MEDS: ENOXAPARIN NA (PORCINE) 80 MG/0.8 ML DISP.SYRIN SQ SCH ×2 (10:30→21:18)
[2022-11-20] MEDS: FLUCONAZOLE 200 MG/NS 100 ML IVPB SCH (10:30)
[2022-11-20] MEDS: COLLAGENASE CLOSTRIDIUM HIST. 30 GRAMS TUBE TP SCH (10:31)
[2022-11-20] MEDS: ZINC OXIDE/PANTHENOL/VITAMIN E 56 GM TUBE TP SCH (10:31)
[2022-11-20] MEDS: ARTIFICIAL TEARS (POLYVINYL ALCOHOL) OPTH DROPS OU SCH ×2 (10:31→21:18)
[2022-11-20 16:16] LABS: PREALBUMIN 10.5 mg/dl (20-40)
[2022-11-20] MEDS: CHLORHEXIDINE GLUCONATE 4% CLEANSER FOR DECOLONIZATION TP SCH (21:18)
[2022-11-21] MEDS: INSULIN SLIDING SCALE (NOVOLOG) 1 VIAL SQ SCH ×4 (00:05→18:13)
[2022-11-21] MEDS: NYSTATIN 500,000 UNITS/5 ML SUSPENSION PO SCH ×4 (00:55→19:13)
[2022-11-21] MEDS: CEFEPIME 2 GM in DEXTROSE 5%-WATER 100 ML IVPB SCH ×3 (01:55→18:12)
[2022-11-21] MEDS: NOREPINEPHRINE 0.9 % NACL 8 MG/250 ML BAG IVPB SCH (04:53)
[2022-11-21] MEDS: levETIRAcetam 500 MG/5 ML INJECTION VIAL IVPB SCH ×2 (06:28→22:11)
[2022-11-21 07:48] LABS: HEMATOCRIT 28.1 % (35.4-49); HEMOGLOBIN 9.5 GM/dL (11.7-16.9); MCH 28.5 pg (25.7-33.7); MCHC 33.8 g/dl (32.0-35.9); MEAN CELL VOLUME 84.2 fl (80-96); PLATELET COUNT 136 10^3/uL (134-434); RBC 3.34 M/mm3 (4.00-5.60); WHITE BLOOD COUNT 3.6 K/mm3 (4.0-10.0)
[2022-11-21 08:04] LABS: CHLORIDE 115 mmol/L (98-107); SODIUM 145 mmol/L (136-145)
[2022-11-21 08:07] LABS: ALBUMIN 1.2 g/dl (3.4-5.0); ANION GAP 1 MMOL/L (8-16); BLOOD UREA NITROGEN 37.9 mg/dL (7-18); CO2 29 mmol/L (21-32); GLUCOSE,RANDOM 128 mg/dL (74-106); MAGNESIUM 1.8 mg/dL (1.8-2.4)
[2022-11-21 08:10] LABS: CREATININE < 0.2 mg/dL (0.55-1.3); PHOSPHOROUS 1.4 mg/dL (2.5-4.9); SGOT/AST 24 U/L (15-37); SGPT/ALT 42 U/L (13-61)
[2022-11-21 08:12] LABS: BILIRUBIN,TOTAL 0.3 mg/dL (0.2-1); TOT PROT 3.9 g/dl (6.4-8.2)
[2022-11-21 08:13] LABS: ALK PHOS 108 U/L (45-117)
[2022-11-21 08:30] LABS: CALCIUM 6.9 mg/dL (8.5-10.1)
[2022-11-21] MEDS: ZINC OXIDE/PANTHENOL/VITAMIN E 56 GM TUBE TP SCH (09:01)
[2022-11-21] MEDS: ENOXAPARIN NA (PORCINE) 80 MG/0.8 ML DISP.SYRIN SQ SCH ×2 (09:01→22:11)
[2022-11-21] MEDS: PANTOPRAZOLE SODIUM 40 MG VIAL IVPUSH SCH (09:01)
[2022-11-21] MEDS: MIDODRINE HCL 5 MG TABLET PO SCH ×3 (09:01→19:13)
[2022-11-21] MEDS: ARTIFICIAL TEARS (POLYVINYL ALCOHOL) OPTH DROPS OU SCH ×2 (09:01→22:13)
[2022-11-21] MEDS: AMINO ACIDS/PROTEIN HYDROLYS 30 ML LIQUID.PKT PO SCH ×3 (09:02→18:12)
[2022-11-21] MEDS: COLLAGENASE CLOSTRIDIUM HIST. 30 GRAMS TUBE TP SCH (09:02)
[2022-11-21] MEDS: DAPTOMYCIN 300 MG in SODIUM CHLORIDE 50 ML IVPB SCH (10:23)
[2022-11-21] MEDS: FLUCONAZOLE 200 MG/NS 100 ML IVPB SCH (12:40)
[2022-11-21] MEDS: LYTES/YERBA SANTA 240 ML BOTTLE MM SCH (12:40)
[2022-11-21] MEDS ORDERED: ALBUMIN HUMAN 25% 100 ML VIAL IV ONE (12:45)
[2022-11-21] MEDS: NAPH,MB-DB/K PH,MBDB POWDER PACKET PO SCH ×2 (13:14→22:11)
[2022-11-21] MEDS ORDERED: FUROSEMIDE 40 MG/4 ML INJECTABLE VIAL IVPUSH ONE (13:30)
[2022-11-21] MEDS ORDERED: ACETAMINOPHEN 650 MG/20.3 ML ORAL SOLUTION (CUPS) PO PRN (13:53)
[2022-11-21] MEDS: SIMETHICONE 40 MG/0.6 ML BOTTLE GT PRN (22:11)
[2022-11-21] MEDS: CHLORHEXIDINE GLUCONATE 4% CLEANSER FOR DECOLONIZATION TP SCH (22:12)
[2022-11-22] MEDS: NYSTATIN 500,000 UNITS/5 ML SUSPENSION PO SCH ×5 (00:02→17:33)
[2022-11-22] MEDS: INSULIN SLIDING SCALE (NOVOLOG) 1 VIAL SQ SCH ×4 (00:02→17:33)
[2022-11-22] MEDS: CEFEPIME 2 GM in DEXTROSE 5%-WATER 100 ML IVPB SCH ×3 (01:21→17:00)
[2022-11-22] MEDS: levETIRAcetam 500 MG/5 ML INJECTION VIAL IVPB SCH ×2 (06:33→21:02)
[2022-11-22] MEDS: NAPH,MB-DB/K PH,MBDB POWDER PACKET PO SCH ×3 (06:34→21:03)
[2022-11-22] MEDS: NOREPINEPHRINE 0.9 % NACL 8 MG/250 ML BAG IVPB SCH (06:34)
[2022-11-22 07:24] LABS: HEMATOCRIT 27.2 % (35.4-49); HEMOGLOBIN 8.9 GM/dL (11.7-16.9); MCH 27.3 pg (25.7-33.7); MCHC 32.8 g/dl (32.0-35.9); MEAN CELL VOLUME 83.3 fl (80-96); MEAN PLT VOLUME 9.8 fl (7.5-11.1); PLATELET COUNT 124 10^3/uL (134-434); RBC 3.26 M/mm3 (4.00-5.60); RDW 18.3 % (11.9-15.9); WHITE BLOOD COUNT 2.9 K/mm3 (4.0-10.0)
[2022-11-22] MEDS ORDERED: AMINO ACIDS/PROTEIN HYDROLYS 30 ML LIQUID.PKT PO SCH (08:00)
[2022-11-22 08:26] LABS: CHLORIDE 113 mmol/L (98-107); SODIUM 144 mmol/L (136-145)
[2022-11-22 08:33] LABS: ANION GAP 2 MMOL/L (8-16); BLOOD UREA NITROGEN 37.1 mg/dL (7-18); CO2 29 mmol/L (21-32); GLUCOSE,RANDOM 152 mg/dL (74-106); MAGNESIUM 1.9 mg/dL (1.8-2.4)
[2022-11-22 08:36] LABS: CREATININE < 0.2 mg/dL (0.55-1.3); PHOSPHOROUS 1.3 mg/dL (2.5-4.9); SGOT/AST 24 U/L (15-37); SGPT/ALT 38 U/L (13-61)
[2022-11-22 08:37] LABS: BILIRUBIN,TOTAL 0.5 mg/dL (0.2-1); TOT PROT 4.2 g/dl (6.4-8.2)
[2022-11-22 08:39] LABS: ALK PHOS 109 U/L (45-117)
[2022-11-22 08:49] LABS: ALBUMIN 1.5 g/dl (3.4-5.0)
[2022-11-22] MEDS: MIDODRINE HCL 5 MG TABLET PO SCH ×3 (09:08→17:55)
[2022-11-22] MEDS: LYTES/YERBA SANTA 240 ML BOTTLE MM SCH (09:08)
[2022-11-22] MEDS: ENOXAPARIN NA (PORCINE) 80 MG/0.8 ML DISP.SYRIN SQ SCH ×2 (09:08→21:02)
[2022-11-22] MEDS: PANTOPRAZOLE SODIUM 40 MG VIAL IVPUSH SCH (09:08)
[2022-11-22] MEDS: COLLAGENASE CLOSTRIDIUM HIST. 30 GRAMS TUBE TP SCH (09:09)
[2022-11-22] MEDS: ARTIFICIAL TEARS (POLYVINYL ALCOHOL) OPTH DROPS OU SCH ×2 (09:09→21:03)
[2022-11-22] MEDS: ZINC OXIDE/PANTHENOL/VITAMIN E 56 GM TUBE TP SCH (09:09)
[2022-11-22] MEDS ORDERED: morphine SULFATE 4 MG/ML VIAL IVPUSH ONE (09:27)
[2022-11-22] MEDS: DAPTOMYCIN 300 MG in SODIUM CHLORIDE 50 ML IVPB SCH (09:30)
[2022-11-22] MEDS ORDERED: POTASSIUM PHOSPHATE 30 MM in DEXTROSE 5%-WATER - 500 ML IVPB ONE (10:00)
[2022-11-22] MEDS ORDERED: SIMETHICONE 40 MG/0.6 ML BOTTLE GT PRN (10:56)
[2022-11-22] MEDS: FLUCONAZOLE 200 MG/NS 100 ML IVPB SCH (12:08)
[2022-11-22] MEDS: SIMETHICONE 40 MG/0.6 ML BOTTLE GT SCH ×4 (14:16→21:20)
[2022-11-22] MEDS: AMINO ACIDS/PROTEIN HYDROLYS 30 ML LIQUID.PKT PO SCH (17:00)
[2022-11-22] MEDS: CHLORHEXIDINE GLUCONATE 4% CLEANSER FOR DECOLONIZATION TP SCH (21:02)
[2022-11-23] MEDS: INSULIN SLIDING SCALE (NOVOLOG) 1 VIAL SQ SCH ×5 (01:00→23:21)
[2022-11-23] MEDS: CEFEPIME 2 GM in DEXTROSE 5%-WATER 100 ML IVPB SCH ×3 (01:12→17:00)
[2022-11-23] MEDS: NYSTATIN 500,000 UNITS/5 ML SUSPENSION PO SCH ×5 (01:12→23:21)
[2022-11-23] MEDS: NOREPINEPHRINE 0.9 % NACL 8 MG/250 ML BAG IVPB SCH (05:19)
[2022-11-23] MEDS: NAPH,MB-DB/K PH,MBDB POWDER PACKET PO SCH ×3 (05:20→21:18)
[2022-11-23] MEDS: levETIRAcetam 500 MG/5 ML INJECTION VIAL IVPB SCH ×2 (06:31→21:14)
[2022-11-23 07:33] LABS: MCH 28.1 pg (25.7-33.7); MCHC 33.4 g/dl (32.0-35.9); MEAN CELL VOLUME 84.1 fl (80-96); MEAN PLT VOLUME 10.1 fl (7.5-11.1); PLATELET COUNT 141 10^3/uL (134-434); RBC 3.22 M/mm3 (4.00-5.60); RDW 18.5 % (11.9-15.9); WHITE BLOOD COUNT 2.5 K/mm3 (4.0-10.0)
[2022-11-23 07:53] LABS: CHLORIDE 112 mmol/L (98-107); SODIUM 144 mmol/L (136-145)
[2022-11-23 07:56] LABS: ALBUMIN 1.4 g/dl (3.4-5.0); ANION GAP 3 MMOL/L (8-16); BLOOD UREA NITROGEN 37.3 mg/dL (7-18); CO2 29 mmol/L (21-32); GLUCOSE,RANDOM 123 mg/dL (74-106); MAGNESIUM 1.9 mg/dL (1.8-2.4)
[2022-11-23 07:59] LABS: CREATININE < 0.2 mg/dL (0.55-1.3); PHOSPHOROUS 1.5 mg/dL (2.5-4.9); SGOT/AST 22 U/L (15-37); SGPT/ALT 34 U/L (13-61)
[2022-11-23 08:00] LABS: BILIRUBIN,TOTAL 0.3 mg/dL (0.2-1); TOT PROT 4.1 g/dl (6.4-8.2)
[2022-11-23 08:02] LABS: ALK PHOS 116 U/L (45-117)
[2022-11-23] MEDS: AMINO ACIDS/PROTEIN HYDROLYS 30 ML LIQUID.PKT PO SCH ×3 (09:00→17:00)
[2022-11-23] MEDS: ARTIFICIAL TEARS (POLYVINYL ALCOHOL) OPTH DROPS OU SCH ×2 (09:03→21:13)
[2022-11-23] MEDS: ZINC OXIDE/PANTHENOL/VITAMIN E 56 GM TUBE TP SCH (09:03)
[2022-11-23] MEDS: ENOXAPARIN NA (PORCINE) 80 MG/0.8 ML DISP.SYRIN SQ SCH ×2 (09:04→21:15)
[2022-11-23] MEDS: LYTES/YERBA SANTA 240 ML BOTTLE MM SCH (09:05)
[2022-11-23] MEDS: CALCIUM 500MG/VIT-D 200 UNITS COMBO TABLET (FP) NGT SCH (09:06)
[2022-11-23] MEDS: MIDODRINE HCL 5 MG TABLET PO SCH ×3 (09:06→17:00)
[2022-11-23] MEDS: PANTOPRAZOLE SODIUM 40 MG VIAL IVPUSH SCH (09:06)
[2022-11-23] MEDS: COLLAGENASE CLOSTRIDIUM HIST. 30 GRAMS TUBE TP SCH (09:06)
[2022-11-23] MEDS: SIMETHICONE 40 MG/0.6 ML BOTTLE GT SCH ×4 (09:12→21:18)
[2022-11-23] MEDS ORDERED: SODIUM PHOSPHATE - 30 MM in DEXTROSE 5%-WATER - 250 ML IVPB SCH (10:15)
[2022-11-23] MEDS: DAPTOMYCIN 300 MG in SODIUM CHLORIDE 50 ML IVPB SCH (10:45)
[2022-11-23] MEDS: METOPROLOL TARTRATE 25 MG TABLET (FP) PO SCH ×2 (10:47→21:16)
[2022-11-23] MEDS: SODIUM PHOSPHATE - 30 MM in DEXTROSE 5%-WATER - 250 ML IVPB SCH (13:00)
[2022-11-23] MEDS: CHLORHEXIDINE GLUCONATE 4% CLEANSER FOR DECOLONIZATION TP SCH (21:14)
[2022-11-24] MEDS: CEFEPIME 2 GM in DEXTROSE 5%-WATER 100 ML IVPB SCH ×3 (01:00→17:14)
[2022-11-24] MEDS: NYSTATIN 500,000 UNITS/5 ML SUSPENSION PO SCH ×4 (06:13→23:23)
[2022-11-24] MEDS: INSULIN SLIDING SCALE (NOVOLOG) 1 VIAL SQ SCH ×4 (06:13→23:24)
[2022-11-24] MEDS: levETIRAcetam 500 MG/5 ML INJECTION VIAL IVPB SCH ×2 (06:14→21:05)
[2022-11-24] MEDS: NAPH,MB-DB/K PH,MBDB POWDER PACKET PO SCH ×3 (06:14→21:07)
[2022-11-24] MEDS: NOREPINEPHRINE 0.9 % NACL 8 MG/250 ML BAG IVPB SCH (07:00)
[2022-11-24 07:20] LABS: BASO % 0.7 % (0-2.0); EOS % 1.3 % (0-4.5); HEMOGLOBIN 8.8 GM/dL (11.7-16.9); LYMPH % 4.7 % (8-40); MCH 28.5 pg (25.7-33.7); MEAN CELL VOLUME 83.6 fl (80-96); MEAN PLT VOLUME 9.4 fl (7.5-11.1); NEUT % 85.3 % (42.8-82.8); PLATELET COUNT 132 10^3/uL (134-434); RDW 18.1 % (11.9-15.9); WHITE BLOOD COUNT 2.6 K/mm3 (4.0-10.0)
[2022-11-24 07:24] LABS: CHLORIDE 113 mmol/L (98-107); SODIUM 145 mmol/L (136-145)
[2022-11-24 07:26] LABS: ANION GAP 2 MMOL/L (8-16); BLOOD UREA NITROGEN 35.2 mg/dL (7-18); CALCIUM 7.2 mg/dL (8.5-10.1); CO2 30 mmol/L (21-32)
[2022-11-24 07:27] LABS: ALBUMIN 1.3 g/dl (3.4-5.0); GLUCOSE,RANDOM 127 mg/dL (74-106); MAGNESIUM 1.9 mg/dL (1.8-2.4)
[2022-11-24 07:29] LABS: PHOSPHOROUS 2.4 mg/dL (2.5-4.9); SGPT/ALT 31 U/L (13-61)
[2022-11-24 07:30] LABS: CREATININE < 0.2 mg/dL (0.55-1.3); SGOT/AST 21 U/L (15-37)
[2022-11-24 07:31] LABS: BILIRUBIN,TOTAL 0.2 mg/dL (0.2-1)
[2022-11-24 07:32] LABS: ALK PHOS 115 U/L (45-117)
[2022-11-24] MEDS: AMINO ACIDS/PROTEIN HYDROLYS 30 ML LIQUID.PKT PO SCH ×3 (08:22→16:59)
[2022-11-24] MEDS: ENOXAPARIN NA (PORCINE) 80 MG/0.8 ML DISP.SYRIN SQ SCH ×2 (09:37→21:06)
[2022-11-24] MEDS: SIMETHICONE 40 MG/0.6 ML BOTTLE GT SCH ×4 (09:38→22:00)
[2022-11-24] MEDS: PANTOPRAZOLE SODIUM 40 MG VIAL IVPUSH SCH (09:38)
[2022-11-24] MEDS: MIDODRINE HCL 5 MG TABLET PO SCH ×3 (09:39→17:26)
[2022-11-24] MEDS: LYTES/YERBA SANTA 240 ML BOTTLE MM SCH (09:39)
[2022-11-24] MEDS: METOPROLOL TARTRATE 25 MG TABLET (FP) PO SCH ×2 (09:39→21:07)
[2022-11-24] MEDS: ZINC OXIDE/PANTHENOL/VITAMIN E 56 GM TUBE TP SCH (09:39)
[2022-11-24] MEDS: SODIUM PHOSPHATE - 30 MM in DEXTROSE 5%-WATER - 250 ML IVPB SCH (09:40)
[2022-11-24] MEDS: ARTIFICIAL TEARS (POLYVINYL ALCOHOL) OPTH DROPS OU SCH ×2 (09:40→21:06)
[2022-11-24] MEDS: COLLAGENASE CLOSTRIDIUM HIST. 30 GRAMS TUBE TP SCH (09:40)
[2022-11-24] MEDS: DAPTOMYCIN 300 MG in SODIUM CHLORIDE 50 ML IVPB SCH (10:44)
[2022-11-24] MEDS: CHLORHEXIDINE GLUCONATE 4% CLEANSER FOR DECOLONIZATION TP SCH (21:06)
[2022-11-25] MEDS: CEFEPIME 2 GM in DEXTROSE 5%-WATER 100 ML IVPB SCH ×3 (02:15→17:00)
[2022-11-25] MEDS: NOREPINEPHRINE 0.9 % NACL 8 MG/250 ML BAG IVPB SCH (04:28)
[2022-11-25] MEDS: INSULIN SLIDING SCALE (NOVOLOG) 1 VIAL SQ SCH ×3 (06:18→17:37)
[2022-11-25] MEDS: NAPH,MB-DB/K PH,MBDB POWDER PACKET PO SCH ×3 (06:18→21:32)
[2022-11-25] MEDS: NYSTATIN 500,000 UNITS/5 ML SUSPENSION PO SCH ×3 (06:18→17:00)
[2022-11-25] MEDS: levETIRAcetam 500 MG/5 ML INJECTION VIAL IVPB SCH ×2 (06:18→21:31)
[2022-11-25] MEDS: METOPROLOL TARTRATE 5 MG/5 ML VIAL IVPUSH PRN (06:21)
[2022-11-25 07:09] LABS: HEMATOCRIT 29.6 % (35.4-49); MCH 28.4 pg (25.7-33.7); MCHC 33.8 g/dl (32.0-35.9); MEAN CELL VOLUME 83.9 fl (80-96); MEAN PLT VOLUME 9.7 fl (7.5-11.1); PLATELET COUNT 185 10^3/uL (134-434); RBC 3.53 M/mm3 (4.00-5.60); RDW 18.2 % (11.9-15.9); WHITE BLOOD COUNT 3.2 K/mm3 (4.0-10.0)
[2022-11-25 07:29] LABS: BLOOD UREA NITROGEN 32.9 mg/dL (7-18); CALCIUM 7.2 mg/dL (8.5-10.1); MAGNESIUM 1.8 mg/dL (1.8-2.4)
[2022-11-25 07:33] LABS: CREATININE 0.2 mg/dL (0.55-1.3); PHOSPHOROUS 2.1 mg/dL (2.5-4.9)
[2022-11-25] MEDS: AMINO ACIDS/PROTEIN HYDROLYS 30 ML LIQUID.PKT PO SCH ×3 (08:30→16:49)
[2022-11-25] MEDS: DAPTOMYCIN 300 MG in SODIUM CHLORIDE 50 ML IVPB SCH (09:12)
[2022-11-25] MEDS: SODIUM PHOSPHATE - 30 MM in DEXTROSE 5%-WATER - 250 ML IVPB SCH (09:13)
[2022-11-25] MEDS: ENOXAPARIN NA (PORCINE) 80 MG/0.8 ML DISP.SYRIN SQ SCH ×2 (09:15→21:29)
[2022-11-25] MEDS: SIMETHICONE 40 MG/0.6 ML BOTTLE GT SCH ×4 (09:15→21:30)
[2022-11-25] MEDS: PANTOPRAZOLE SODIUM 40 MG VIAL IVPUSH SCH (09:15)
[2022-11-25] MEDS: MIDODRINE HCL 5 MG TABLET PO SCH ×3 (09:15→17:00)
[2022-11-25] MEDS: METOPROLOL TARTRATE 25 MG TABLET (FP) PO SCH ×2 (09:15→21:30)
[2022-11-25] MEDS: ARTIFICIAL TEARS (POLYVINYL ALCOHOL) OPTH DROPS OU SCH ×2 (09:16→21:31)
[2022-11-25] MEDS: ZINC OXIDE/PANTHENOL/VITAMIN E 56 GM TUBE TP SCH (09:16)
[2022-11-25] MEDS: COLLAGENASE CLOSTRIDIUM HIST. 30 GRAMS TUBE TP SCH (09:17)
[2022-11-25] MEDS: LYTES/YERBA SANTA 240 ML BOTTLE MM SCH (09:17)
[2022-11-25] MEDS ORDERED: morphine SULFATE 4 MG/ML VIAL IVPUSH PRN (17:56)
[2022-11-25] MEDS: CHLORHEXIDINE GLUCONATE 4% CLEANSER FOR DECOLONIZATION TP SCH (21:31)
[2022-11-26] MEDS: NYSTATIN 500,000 UNITS/5 ML SUSPENSION PO SCH ×4 (00:36→17:41)
[2022-11-26] MEDS: INSULIN SLIDING SCALE (NOVOLOG) 1 VIAL SQ SCH ×4 (00:50→17:41)
[2022-11-26] MEDS: CEFEPIME 2 GM in DEXTROSE 5%-WATER 100 ML IVPB SCH ×3 (03:00→17:41)
[2022-11-26] MEDS: NAPH,MB-DB/K PH,MBDB POWDER PACKET PO SCH ×3 (06:36→21:37)
[2022-11-26] MEDS: levETIRAcetam 500 MG/5 ML INJECTION VIAL IVPB SCH ×2 (06:37→21:31)
[2022-11-26 07:13] LABS: HEMATOCRIT 25.3 % (35.4-49); HEMOGLOBIN 8.4 GM/dL (11.7-16.9); MCHC 33.2 g/dl (32.0-35.9); MEAN CELL VOLUME 84.3 fl (80-96); MEAN PLT VOLUME 9.6 fl (7.5-11.1); PLATELET COUNT 172 10^3/uL (134-434); WHITE BLOOD COUNT 2.4 K/mm3 (4.0-10.0)
[2022-11-26 07:34] LABS: CHLORIDE 110 mmol/L (98-107); SODIUM 143 mmol/L (136-145)
[2022-11-26 07:38] LABS: ANION GAP -1 MMOL/L (8-16); BLOOD UREA NITROGEN 32.5 mg/dL (7-18); CO2 34 mmol/L (21-32); GLUCOSE,RANDOM 143 mg/dL (74-106); MAGNESIUM 1.8 mg/dL (1.8-2.4)
[2022-11-26 07:41] LABS: CREATININE < 0.2 mg/dL (0.55-1.3); PHOSPHOROUS 2.1 mg/dL (2.5-4.9)
[2022-11-26 07:52] LABS: CALCIUM 6.9 mg/dL (8.5-10.1)
[2022-11-26] MEDS ORDERED: CALCIUM GLUCONATE 10% - 1,000 MG/10 ML VIAL IVPB ONE (08:14)
[2022-11-26] MEDS: AMINO ACIDS/PROTEIN HYDROLYS 30 ML LIQUID.PKT PO SCH ×3 (08:30→17:41)
[2022-11-26] MEDS: MIDODRINE HCL 5 MG TABLET PO SCH ×3 (09:02→17:41)
[2022-11-26] MEDS: LYTES/YERBA SANTA 240 ML BOTTLE MM SCH (09:02)
[2022-11-26] MEDS: ENOXAPARIN NA (PORCINE) 80 MG/0.8 ML DISP.SYRIN SQ SCH (09:02)
[2022-11-26] MEDS: ZINC OXIDE/PANTHENOL/VITAMIN E 56 GM TUBE TP SCH (09:04)
[2022-11-26] MEDS: SIMETHICONE 40 MG/0.6 ML BOTTLE GT SCH ×4 (09:04→21:37)
[2022-11-26] MEDS: METOPROLOL TARTRATE 25 MG TABLET (FP) PO SCH ×2 (09:04→21:35)
[2022-11-26] MEDS: COLLAGENASE CLOSTRIDIUM HIST. 30 GRAMS TUBE TP SCH (09:05)
[2022-11-26] MEDS: PANTOPRAZOLE SODIUM 40 MG VIAL IVPUSH SCH (09:05)
[2022-11-26] MEDS: ARTIFICIAL TEARS (POLYVINYL ALCOHOL) OPTH DROPS OU SCH ×2 (09:05→21:30)
[2022-11-26] MEDS: DAPTOMYCIN 300 MG in SODIUM CHLORIDE 50 ML IVPB SCH (10:50)
[2022-11-26] MEDS: SODIUM PHOSPHATE - 30 MM in DEXTROSE 5%-WATER - 250 ML IVPB SCH (13:16)
[2022-11-26] MEDS: CHLORHEXIDINE GLUCONATE 4% CLEANSER FOR DECOLONIZATION TP SCH (21:30)
[2022-11-27] MEDS: INSULIN SLIDING SCALE (NOVOLOG) 1 VIAL SQ SCH ×4 (00:34→18:28)
[2022-11-27] MEDS: NYSTATIN 500,000 UNITS/5 ML SUSPENSION PO SCH ×5 (00:36→23:55)
[2022-11-27] MEDS: CEFEPIME 2 GM in DEXTROSE 5%-WATER 100 ML IVPB SCH ×3 (01:32→18:32)
[2022-11-27] MEDS: NAPH,MB-DB/K PH,MBDB POWDER PACKET PO SCH ×3 (05:14→21:10)
[2022-11-27] MEDS: levETIRAcetam 500 MG/5 ML INJECTION VIAL IVPB SCH ×2 (06:45→21:08)
[2022-11-27 07:31] LABS: CALCIUM 7.2 mg/dL (8.5-10.1)
[2022-11-27 07:32] LABS: ANION GAP 3 MMOL/L (8-16); BLOOD UREA NITROGEN 32.3 mg/dL (7-18); CHLORIDE 110 mmol/L (98-107); CO2 30 mmol/L (21-32); GLUCOSE,RANDOM 93 mg/dL (74-106); SODIUM 143 mmol/L (136-145)
[2022-11-27 07:35] LABS: CREATININE < 0.2 mg/dL (0.55-1.3)
[2022-11-27 08:03] LABS: BASO % 0.3 % (0-2.0); EOS % 0.8 % (0-4.5); HEMATOCRIT 27.5 % (35.4-49); HEMOGLOBIN 9.3 GM/dL (11.7-16.9); LYMPH % 6.1 % (8-40); MCHC 33.8 g/dl (32.0-35.9); MEAN CELL VOLUME 82.8 fl (80-96); MONO % 7.8 % (3.8-10.2); PLATELET COUNT 182 10^3/uL (134-434); RBC 3.32 M/mm3 (4.00-5.60); RDW 17.8 % (11.9-15.9); WHITE BLOOD COUNT 2.9 K/mm3 (4.0-10.0)
[2022-11-27] MEDS: AMINO ACIDS/PROTEIN HYDROLYS 30 ML LIQUID.PKT PO SCH ×3 (10:13→18:28)
[2022-11-27] MEDS: ZINC OXIDE/PANTHENOL/VITAMIN E 56 GM TUBE TP SCH (10:13)
[2022-11-27] MEDS: ARTIFICIAL TEARS (POLYVINYL ALCOHOL) OPTH DROPS OU SCH ×2 (10:13→21:08)
[2022-11-27] MEDS: METOPROLOL TARTRATE 25 MG TABLET (FP) PO SCH ×2 (10:14→21:09)
[2022-11-27] MEDS: DAPTOMYCIN 300 MG in SODIUM CHLORIDE 50 ML IVPB SCH (10:14)
[2022-11-27] MEDS: PANTOPRAZOLE SODIUM 40 MG VIAL IVPUSH SCH (10:14)
[2022-11-27] MEDS: LYTES/YERBA SANTA 240 ML BOTTLE MM SCH (10:14)
[2022-11-27] MEDS: COLLAGENASE CLOSTRIDIUM HIST. 30 GRAMS TUBE TP SCH (10:14)
[2022-11-27] MEDS: SIMETHICONE 40 MG/0.6 ML BOTTLE GT SCH ×4 (10:14→21:09)
[2022-11-27] MEDS: METOPROLOL TARTRATE 5 MG/5 ML VIAL IVPUSH PRN ×2 (10:36→18:27)
[2022-11-27] MEDS ORDERED: MIDAZOLAM HCL 2 MG/2 ML SINGLE DOSE VIAL IVPUSH ONE (11:21)
[2022-11-27] MEDS ORDERED: FENTANYL CITRATE/PF 50 MCG/ML VIAL IVPUSH ONE (11:45)
[2022-11-27] MEDS ORDERED: DEXTROSE 50%-WATER - 25 GM/50 ML VIAL IVPUSH ONE (13:25)
[2022-11-27] MEDS ORDERED: DEXTROSE 50%-WATER 25 GM/50 ML DISP.SYRIN ONE (13:28)
[2022-11-27] MEDS: MIDODRINE HCL 5 MG TABLET PO SCH ×3 (13:38→18:33)
[2022-11-27] MEDS: CHLORHEXIDINE GLUCONATE 4% CLEANSER FOR DECOLONIZATION TP SCH (21:08)
[2022-11-28] MEDS: INSULIN SLIDING SCALE (NOVOLOG) 1 VIAL SQ SCH ×5 (01:00→19:30)
[2022-11-28] MEDS: CEFEPIME 2 GM in DEXTROSE 5%-WATER 100 ML IVPB SCH ×3 (01:07→18:34)
[2022-11-28] MEDS: NYSTATIN 500,000 UNITS/5 ML SUSPENSION PO SCH ×3 (05:46→18:34)
[2022-11-28] MEDS: NAPH,MB-DB/K PH,MBDB POWDER PACKET PO SCH ×3 (05:46→21:31)
[2022-11-28] MEDS: levETIRAcetam 500 MG/5 ML INJECTION VIAL IVPB SCH ×2 (06:23→21:31)
[2022-11-28 07:36] LABS: BASO % 0.4 % (0-2.0); EOS % 0.4 % (0-4.5); HEMOGLOBIN 8.5 GM/dL (11.7-16.9); LYMPH % 5.5 % (8-40); MCH 28.1 pg (25.7-33.7); MCHC 34.1 g/dl (32.0-35.9); MEAN CELL VOLUME 82.5 fl (80-96); MEAN PLT VOLUME 9.7 fl (7.5-11.1); MONO % 9.2 % (3.8-10.2); NEUT % 84.5 % (42.8-82.8); PLATELET COUNT 195 10^3/uL (134-434); RBC 3.03 M/mm3 (4.00-5.60); RDW 18.1 % (11.9-15.9); WHITE BLOOD COUNT 2.8 K/mm3 (4.0-10.0)
[2022-11-28] MEDS: AMINO ACIDS/PROTEIN HYDROLYS 30 ML LIQUID.PKT PO SCH ×3 (07:49→18:33)
[2022-11-28 07:51] LABS: CHLORIDE 111 mmol/L (98-107); SODIUM 143 mmol/L (136-145)
[2022-11-28 08:00] LABS: CALCIUM 7.3 mg/dL (8.5-10.1)
[2022-11-28 08:01] LABS: ANION GAP 1 MMOL/L (8-16); BLOOD UREA NITROGEN 37.1 mg/dL (7-18); CO2 32 mmol/L (21-32); GLUCOSE,RANDOM 83 mg/dL (74-106)
[2022-11-28 08:04] LABS: CREATININE < 0.2 mg/dL (0.55-1.3)
[2022-11-28] MEDS: PANTOPRAZOLE SODIUM 40 MG VIAL IVPUSH SCH (09:10)
[2022-11-28] MEDS: DAPTOMYCIN 300 MG in SODIUM CHLORIDE 50 ML IVPB SCH (09:12)
[2022-11-28] MEDS: ARTIFICIAL TEARS (POLYVINYL ALCOHOL) OPTH DROPS OU SCH ×2 (09:12→21:31)
[2022-11-28] MEDS: METOPROLOL TARTRATE 25 MG TABLET (FP) PO SCH ×2 (10:03→21:31)
[2022-11-28] MEDS: SIMETHICONE 40 MG/0.6 ML BOTTLE GT SCH ×4 (10:04→21:31)
[2022-11-28] MEDS: LYTES/YERBA SANTA 240 ML BOTTLE MM SCH (10:26)
[2022-11-28] MEDS: MIDODRINE HCL 5 MG TABLET PO SCH ×3 (11:00→18:34)
[2022-11-28] MEDS: ZINC OXIDE/PANTHENOL/VITAMIN E 56 GM TUBE TP SCH (19:19)
[2022-11-28] MEDS: COLLAGENASE CLOSTRIDIUM HIST. 30 GRAMS TUBE TP SCH (19:20)
[2022-11-28] MEDS: CHLORHEXIDINE GLUCONATE 4% CLEANSER FOR DECOLONIZATION TP SCH (21:31)
[2022-11-29] MEDS: NYSTATIN 500,000 UNITS/5 ML SUSPENSION PO SCH ×4 (00:10→18:20)
[2022-11-29] MEDS: INSULIN SLIDING SCALE (NOVOLOG) 1 VIAL SQ SCH ×2 (00:10→06:29)
[2022-11-29] MEDS: CEFEPIME 2 GM in DEXTROSE 5%-WATER 100 ML IVPB SCH ×3 (02:25→18:18)
[2022-11-29] MEDS: levETIRAcetam 500 MG/5 ML INJECTION VIAL IVPB SCH ×2 (06:29→21:22)
[2022-11-29] MEDS: NAPH,MB-DB/K PH,MBDB POWDER PACKET PO SCH ×3 (06:29→21:22)
[2022-11-29] MEDS ORDERED: METOPROLOL TARTRATE 5 MG/5 ML VIAL IVPUSH PRN (06:46)
[2022-11-29] MEDS ORDERED: ONDANSETRON 4 MG/2 ML VIAL IVPUSH PRN (06:46)
[2022-11-29] MEDS: AMINO ACIDS/PROTEIN HYDROLYS 30 ML LIQUID.PKT PO SCH ×3 (10:18→18:19)
[2022-11-29] MEDS: DAPTOMYCIN 300 MG in SODIUM CHLORIDE 50 ML IVPB SCH (10:19)
[2022-11-29] MEDS: ZINC OXIDE/PANTHENOL/VITAMIN E 56 GM TUBE TP SCH (10:21)
[2022-11-29] MEDS: METOPROLOL TARTRATE 25 MG TABLET (FP) PO SCH ×2 (10:21→21:23)
[2022-11-29] MEDS: COLLAGENASE CLOSTRIDIUM HIST. 30 GRAMS TUBE TP SCH (10:22)
[2022-11-29] MEDS: MIDODRINE HCL 5 MG TABLET PO SCH ×3 (10:22→18:19)
[2022-11-29] MEDS: PANTOPRAZOLE SODIUM 40 MG VIAL IVPUSH SCH (10:22)
[2022-11-29] MEDS: LYTES/YERBA SANTA 240 ML BOTTLE MM SCH (10:23)
[2022-11-29] MEDS ORDERED: INSULIN SLIDING SCALE (NOVOLOG) 1 VIAL SQ SCH (12:00)
[2022-11-29] MEDS: SIMETHICONE 40 MG/0.6 ML BOTTLE GT SCH ×4 (13:11→21:22)
[2022-11-30] MEDS: NYSTATIN 500,000 UNITS/5 ML SUSPENSION PO SCH ×4 (00:12→17:36)
[2022-11-30] MEDS: CEFEPIME 2 GM in DEXTROSE 5%-WATER 100 ML IVPB SCH ×3 (01:52→17:46)
[2022-11-30] MEDS: NAPH,MB-DB/K PH,MBDB POWDER PACKET PO SCH ×3 (06:11→21:41)
[2022-11-30] MEDS: levETIRAcetam 500 MG/5 ML INJECTION VIAL IVPB SCH ×2 (06:11→21:40)
[2022-11-30] MEDS: ACETAMINOPHEN 650 MG/20.3 ML ORAL SOLUTION (CUPS) PO PRN ×2 (06:37→17:36)
[2022-11-30] MEDS: AMINO ACIDS/PROTEIN HYDROLYS 30 ML LIQUID.PKT PO SCH ×3 (08:31→17:36)
[2022-11-30] MEDS: ZINC OXIDE/PANTHENOL/VITAMIN E 56 GM TUBE TP SCH (09:01)
[2022-11-30] MEDS: METOPROLOL TARTRATE 25 MG TABLET (FP) PO SCH ×2 (09:01→21:40)
[2022-11-30] MEDS: COLLAGENASE CLOSTRIDIUM HIST. 30 GRAMS TUBE TP SCH (09:02)
[2022-11-30] MEDS: PANTOPRAZOLE SODIUM 40 MG VIAL IVPUSH SCH (09:02)
[2022-11-30] MEDS: LYTES/YERBA SANTA 240 ML BOTTLE MM SCH (09:02)
[2022-11-30] MEDS: MIDODRINE HCL 5 MG TABLET PO SCH ×3 (09:02→17:36)
[2022-11-30] MEDS: DAPTOMYCIN 300 MG in SODIUM CHLORIDE 50 ML IVPB SCH (09:35)
[2022-11-30] MEDS: SIMETHICONE 40 MG/0.6 ML BOTTLE GT SCH ×4 (10:03→21:40)
[2022-12-01] MEDS: CEFEPIME 2 GM in DEXTROSE 5%-WATER 100 ML IVPB SCH ×2 (02:00→10:17)
[2022-12-01] MEDS: NYSTATIN 500,000 UNITS/5 ML SUSPENSION PO SCH ×5 (06:47→23:13)
[2022-12-01] MEDS: NAPH,MB-DB/K PH,MBDB POWDER PACKET PO SCH ×3 (06:47→23:13)
[2022-12-01] MEDS: levETIRAcetam 500 MG/5 ML INJECTION VIAL IVPB SCH ×2 (09:02→23:13)
[2022-12-01] MEDS: MIDODRINE HCL 5 MG TABLET PO SCH ×3 (10:17→18:26)
[2022-12-01] MEDS: AMINO ACIDS/PROTEIN HYDROLYS 30 ML LIQUID.PKT PO SCH ×3 (10:17→18:27)
[2022-12-01] MEDS: METOPROLOL TARTRATE 25 MG TABLET (FP) PO SCH ×2 (10:17→23:13)
[2022-12-01] MEDS: ZINC OXIDE/PANTHENOL/VITAMIN E 56 GM TUBE TP SCH (10:17)
[2022-12-01] MEDS: LYTES/YERBA SANTA 240 ML BOTTLE MM SCH (10:19)
[2022-12-01] MEDS: SIMETHICONE 40 MG/0.6 ML BOTTLE GT SCH ×4 (10:19→23:14)
[2022-12-01] MEDS: PANTOPRAZOLE SODIUM 40 MG VIAL IVPUSH SCH (10:20)
[2022-12-01] MEDS: COLLAGENASE CLOSTRIDIUM HIST. 30 GRAMS TUBE TP SCH (10:20)
[2022-12-01] MEDS: FUROSEMIDE 40 MG/4 ML INJECTABLE VIAL IVPUSH SCH (12:40)
[2022-12-01] MEDS: DAPTOMYCIN 300 MG in SODIUM CHLORIDE 50 ML IVPB SCH (13:02)
[2022-12-01] MEDS: ENOXAPARIN NA (PORCINE) 40 MG/0.4 ML DISP.SYRIN SQ SCH (15:58)
[2022-12-02] MEDS: NAPH,MB-DB/K PH,MBDB POWDER PACKET PO SCH ×3 (05:50→21:31)
[2022-12-02] MEDS: NYSTATIN 500,000 UNITS/5 ML SUSPENSION PO SCH ×3 (05:50→17:02)
[2022-12-02] MEDS: levETIRAcetam 500 MG/5 ML INJECTION VIAL IVPB SCH ×2 (06:01→21:30)
[2022-12-02 08:12] LABS: CHLORIDE 109 mmol/L (98-107); SODIUM 142 mmol/L (136-145)
[2022-12-02 08:19] LABS: ALBUMIN 1.3 g/dl (3.4-5.0); ANION GAP 2 MMOL/L (8-16); BLOOD UREA NITROGEN 31.2 mg/dL (7-18); CALCIUM 7.5 mg/dL (8.5-10.1); CO2 31 mmol/L (21-32); GLUCOSE,RANDOM 116 mg/dL (74-106); MAGNESIUM 1.8 mg/dL (1.8-2.4)
[2022-12-02 08:21] LABS: SGPT/ALT 20 U/L (13-61)
[2022-12-02 08:23] LABS: PHOSPHOROUS 2.4 mg/dL (2.5-4.9); SGOT/AST 21 U/L (15-37)
[2022-12-02 08:24] LABS: ALK PHOS 109 U/L (45-117); BILIRUBIN,TOTAL 0.2 mg/dL (0.2-1)
[2022-12-02 08:26] LABS: BASO % 0.3 % (0-2.0); EOS % 0.2 % (0-4.5); HEMATOCRIT 23.8 % (35.4-49); HEMOGLOBIN 8.3 GM/dL (11.7-16.9); LYMPH % 3.7 % (8-40); MCH 29.3 pg (25.7-33.7); MCHC 34.8 g/dl (32.0-35.9); MEAN CELL VOLUME 84.1 fl (80-96); MONO % 7.4 % (3.8-10.2); NEUT % 88.4 % (42.8-82.8); PLATELET COUNT 233 10^3/uL (134-434); RBC 2.83 M/mm3 (4.00-5.60); RDW 18.2 % (11.9-15.9); WHITE BLOOD COUNT 4.9 K/mm3 (4.0-10.0)
[2022-12-02 08:28] LABS: CREATININE < 0.2 mg/dL (0.55-1.3)
[2022-12-02] MEDS: AMINO ACIDS/PROTEIN HYDROLYS 30 ML LIQUID.PKT PO SCH ×3 (08:55→16:48)
[2022-12-02] MEDS: COLLAGENASE CLOSTRIDIUM HIST. 30 GRAMS TUBE TP SCH (10:06)
[2022-12-02] MEDS: ZINC OXIDE/PANTHENOL/VITAMIN E 56 GM TUBE TP SCH (10:06)
[2022-12-02] MEDS: FUROSEMIDE 40 MG/4 ML INJECTABLE VIAL IVPUSH SCH (10:07)
[2022-12-02] MEDS: ENOXAPARIN NA (PORCINE) 40 MG/0.4 ML DISP.SYRIN SQ SCH (10:07)
[2022-12-02] MEDS: METOPROLOL TARTRATE 25 MG TABLET (FP) PO SCH ×2 (10:07→21:31)
[2022-12-02] MEDS: LYTES/YERBA SANTA 240 ML BOTTLE MM SCH (10:08)
[2022-12-02] MEDS: PANTOPRAZOLE SODIUM 40 MG VIAL IVPUSH SCH (10:08)
[2022-12-02] MEDS: MIDODRINE HCL 5 MG TABLET PO SCH ×3 (10:08→17:02)
[2022-12-02] MEDS: ACETAMINOPHEN 650 MG/20.3 ML ORAL SOLUTION (CUPS) PO PRN ×2 (10:08→16:49)
[2022-12-02] MEDS: SIMETHICONE 40 MG/0.6 ML BOTTLE GT SCH ×4 (10:08→21:49)
[2022-12-03] MEDS: NYSTATIN 500,000 UNITS/5 ML SUSPENSION PO SCH ×4 (01:34→17:25)
[2022-12-03] MEDS: NAPH,MB-DB/K PH,MBDB POWDER PACKET PO SCH ×3 (06:03→21:59)
[2022-12-03] MEDS ORDERED: AMINO ACIDS 4.25%/D5W 1,000 ML IV SCH (11:00)
[2022-12-03] MEDS: SIMETHICONE 40 MG/0.6 ML BOTTLE GT SCH ×4 (11:00→21:58)
[2022-12-03] MEDS: METOPROLOL TARTRATE 25 MG TABLET (FP) PO SCH ×2 (11:09→21:58)
[2022-12-03 11:42] LABS: INR 1.24 (0.83-1.09); PROTHROMBIN TIME (PATIENT) 14.3 SEC (9.7-13.0)
[2022-12-03 11:45] LABS: ACTIVATED PTT 26.3 SECONDS (25.2-36.5)
[2022-12-03] MEDS: ZINC OXIDE/PANTHENOL/VITAMIN E 56 GM TUBE TP SCH (11:50)
[2022-12-03] MEDS: levETIRAcetam 500 MG/5 ML INJECTION VIAL IVPB SCH ×2 (11:50→21:50)
[2022-12-03] MEDS: COLLAGENASE CLOSTRIDIUM HIST. 30 GRAMS TUBE TP SCH (11:51)
[2022-12-03] MEDS: PANTOPRAZOLE SODIUM 40 MG VIAL IVPUSH SCH (11:51)
[2022-12-03] MEDS: MIDODRINE HCL 5 MG TABLET PO SCH ×3 (11:51→17:25)
[2022-12-03] MEDS: AMINO ACIDS/PROTEIN HYDROLYS 30 ML LIQUID.PKT PO SCH ×3 (12:29→17:25)
[2022-12-03] MEDS: ENOXAPARIN NA (PORCINE) 40 MG/0.4 ML DISP.SYRIN SQ SCH (12:29)
[2022-12-03] MEDS: LYTES/YERBA SANTA 240 ML BOTTLE MM SCH (12:30)
[2022-12-04] MEDS: NYSTATIN 500,000 UNITS/5 ML SUSPENSION PO SCH ×5 (02:27→18:33)
[2022-12-04] MEDS: NAPH,MB-DB/K PH,MBDB POWDER PACKET PO SCH ×4 (05:09→22:54)
[2022-12-04] MEDS: levETIRAcetam 500 MG/5 ML INJECTION VIAL IVPB SCH ×2 (07:39→22:53)
[2022-12-04 10:57] LABS: BASO % 0.6 % (0-2.0); EOS % 0.2 % (0-4.5); HEMATOCRIT 26.3 % (35.4-49); HEMOGLOBIN 9.1 GM/dL (11.7-16.9); LYMPH % 5.9 % (8-40); MCH 28.8 pg (25.7-33.7); MCHC 34.4 g/dl (32.0-35.9); MEAN CELL VOLUME 83.8 fl (80-96); MEAN PLT VOLUME 9.1 fl (7.5-11.1); MONO % 9.4 % (3.8-10.2); NEUT % 83.9 % (42.8-82.8); PLATELET COUNT 292 10^3/uL (134-434); RBC 3.14 M/mm3 (4.00-5.60); RDW 18.4 % (11.9-15.9)
[2022-12-04 11:15] LABS: CHLORIDE 107 mmol/L (98-107); SODIUM 139 mmol/L (136-145)
[2022-12-04 11:17] LABS: CALCIUM 7.4 mg/dL (8.5-10.1)
[2022-12-04 11:18] LABS: ALBUMIN 1.4 g/dl (3.4-5.0); ANION GAP 3 MMOL/L (8-16); BLOOD UREA NITROGEN 35.8 mg/dL (7-18); CO2 30 mmol/L (21-32); GLUCOSE,RANDOM 87 mg/dL (74-106); MAGNESIUM 1.9 mg/dL (1.8-2.4)
[2022-12-04 11:21] LABS: PHOSPHOROUS 3.1 mg/dL (2.5-4.9); SGOT/AST 21 U/L (15-37)
[2022-12-04 11:22] LABS: BILIRUBIN,TOTAL 0.6 mg/dL (0.2-1); TOT PROT 4.4 g/dl (6.4-8.2)
[2022-12-04 11:24] LABS: ALK PHOS 122 U/L (45-117)
[2022-12-04 11:28] LABS: SGPT/ALT 20 U/L (13-61)
[2022-12-04 11:37] LABS: CREATININE < 0.2 mg/dL (0.55-1.3)
[2022-12-04] MEDS ORDERED: MIDAZOLAM HCL 2 MG/2 ML SINGLE DOSE VIAL IVPUSH ONE ×2 (11:39→11:56)
[2022-12-04] MEDS ORDERED: FENTANYL CITRATE/PF 50 MCG/ML VIAL IVPUSH ONE ×2 (11:40→11:56)
[2022-12-04] MEDS ORDERED: MIDAZOLAM HCL 2 MG/2 ML SINGLE DOSE VIAL ONE (11:58)
[2022-12-04] MEDS: AMINO ACIDS/PROTEIN HYDROLYS 30 ML LIQUID.PKT PO SCH ×3 (13:17→16:55)
[2022-12-04] MEDS: ZINC OXIDE/PANTHENOL/VITAMIN E 56 GM TUBE TP SCH (13:18)
[2022-12-04] MEDS: MIDODRINE HCL 5 MG TABLET PO SCH ×4 (13:19→18:34)
[2022-12-04] MEDS: METOPROLOL TARTRATE 25 MG TABLET (FP) PO SCH ×2 (13:19→22:53)
[2022-12-04] MEDS: LYTES/YERBA SANTA 240 ML BOTTLE MM SCH (13:20)
[2022-12-04] MEDS: SIMETHICONE 40 MG/0.6 ML BOTTLE GT SCH ×4 (13:21→22:54)
[2022-12-04] MEDS: COLLAGENASE CLOSTRIDIUM HIST. 30 GRAMS TUBE TP SCH (13:24)
[2022-12-04] MEDS: PANTOPRAZOLE SODIUM 40 MG VIAL IVPUSH SCH (13:25)
[2022-12-04 14:27] LABS: PREALBUMIN 17.2 mg/dl (20-40)
[2022-12-04] MEDS: ACETAMINOPHEN 650 MG/20.3 ML ORAL SOLUTION (CUPS) PO PRN (16:55)
[2022-12-05] MEDS: NYSTATIN 500,000 UNITS/5 ML SUSPENSION PO SCH ×4 (01:23→17:52)
[2022-12-05] MEDS: NAPH,MB-DB/K PH,MBDB POWDER PACKET PO SCH (06:46)
[2022-12-05] MEDS: levETIRAcetam 500 MG/5 ML INJECTION VIAL IVPB SCH ×2 (06:47→21:40)
[2022-12-05 07:57] LABS: BASO % 0.5 % (0-2.0); EOS % 0.1 % (0-4.5); HEMATOCRIT 29.3 % (35.4-49); LYMPH % 5.7 % (8-40); MCH 28.8 pg (25.7-33.7); MCHC 34.2 g/dl (32.0-35.9); MEAN CELL VOLUME 84.4 fl (80-96); MEAN PLT VOLUME 9.4 fl (7.5-11.1); MONO % 8.6 % (3.8-10.2); NEUT % 85.1 % (42.8-82.8); PLATELET COUNT 354 10^3/uL (134-434); RBC 3.47 M/mm3 (4.00-5.60); RDW 18.7 % (11.9-15.9)
[2022-12-05 08:14] LABS: CALCIUM 7.8 mg/dL (8.5-10.1)
[2022-12-05 08:15] LABS: ALBUMIN 1.5 g/dl (3.4-5.0); BLOOD UREA NITROGEN 39.6 mg/dL (7-18)
[2022-12-05 08:17] LABS: CREATININE 0.2 mg/dL (0.55-1.3); PHOSPHOROUS 4.2 mg/dL (2.5-4.9)
[2022-12-05 08:19] LABS: BILIRUBIN,TOTAL 0.3 mg/dL (0.2-1); TOT PROT 4.7 g/dl (6.4-8.2)
[2022-12-05] MEDS: AMINO ACIDS/PROTEIN HYDROLYS 30 ML LIQUID.PKT PO SCH ×3 (08:33→17:52)
[2022-12-05] MEDS: MIDODRINE HCL 5 MG TABLET PO SCH ×4 (08:33→17:52)
[2022-12-05] MEDS: PANTOPRAZOLE SODIUM 40 MG VIAL IVPUSH SCH ×2 (08:34→11:18)
[2022-12-05] MEDS: SIMETHICONE 40 MG/0.6 ML BOTTLE GT SCH ×6 (08:34→21:41)
[2022-12-05] MEDS: METOPROLOL TARTRATE 25 MG TABLET (FP) PO SCH ×2 (11:17→21:40)
[2022-12-05] MEDS: ZINC OXIDE/PANTHENOL/VITAMIN E 56 GM TUBE TP SCH (11:17)
[2022-12-05] MEDS: LYTES/YERBA SANTA 240 ML BOTTLE MM SCH (11:18)
[2022-12-05] MEDS: COLLAGENASE CLOSTRIDIUM HIST. 30 GRAMS TUBE TP SCH (11:18)
[2022-12-05] MEDS ORDERED: ALTEPLASE (CATHFLO) 2 MG/2 ML VIAL IA ONE (11:30)
[2022-12-05] MEDS: ENOXAPARIN NA (PORCINE) 40 MG/0.4 ML DISP.SYRIN SQ SCH (12:09)
[2022-12-06] MEDS: NYSTATIN 500,000 UNITS/5 ML SUSPENSION PO SCH ×4 (03:46→17:04)
[2022-12-06] MEDS: levETIRAcetam 500 MG/5 ML INJECTION VIAL IVPB SCH ×2 (06:47→22:19)
[2022-12-06 07:39] LABS: BASO % 0.5 % (0-2.0); EOS % 0.1 % (0-4.5); HEMATOCRIT 24.7 % (35.4-49); HEMOGLOBIN 8.3 GM/dL (11.7-16.9); MCH 28.3 pg (25.7-33.7); MCHC 33.7 g/dl (32.0-35.9); MEAN PLT VOLUME 9.2 fl (7.5-11.1); MONO % 9.4 % (3.8-10.2); PLATELET COUNT 280 10^3/uL (134-434); RBC 2.94 M/mm3 (4.00-5.60); RDW 18.5 % (11.9-15.9); WHITE BLOOD COUNT 3.9 K/mm3 (4.0-10.0)
[2022-12-06] MEDS: AMINO ACIDS/PROTEIN HYDROLYS 30 ML LIQUID.PKT PO SCH ×3 (07:42→17:04)
[2022-12-06 07:57] LABS: ALBUMIN 1.4 g/dl (3.4-5.0)
[2022-12-06 07:58] LABS: CALCIUM 7.1 mg/dL (8.5-10.1); MAGNESIUM 1.8 mg/dL (1.8-2.4)
[2022-12-06 08:00] LABS: CREATININE 0.2 mg/dL (0.55-1.3)
[2022-12-06 08:01] LABS: PHOSPHOROUS 3.1 mg/dL (2.5-4.9)
[2022-12-06 08:02] LABS: BILIRUBIN,TOTAL 0.2 mg/dL (0.2-1); TOT PROT 4.4 g/dl (6.4-8.2)
[2022-12-06] MEDS: ZINC OXIDE/PANTHENOL/VITAMIN E 56 GM TUBE TP SCH (09:29)
[2022-12-06] MEDS: COLLAGENASE CLOSTRIDIUM HIST. 30 GRAMS TUBE TP SCH (09:30)
[2022-12-06] MEDS: LYTES/YERBA SANTA 240 ML BOTTLE MM SCH (09:30)
[2022-12-06] MEDS ORDERED: FUROSEMIDE 40 MG/4 ML INJECTABLE VIAL IVPUSH ONE (09:31)
[2022-12-06] MEDS: MIDODRINE HCL 5 MG TABLET PO SCH ×3 (09:31→17:05)
[2022-12-06] MEDS: PANTOPRAZOLE SODIUM 40 MG VIAL IVPUSH SCH (09:31)
[2022-12-06] MEDS: SIMETHICONE 40 MG/0.6 ML BOTTLE GT SCH ×4 (09:32→22:19)
[2022-12-06] MEDS: ENOXAPARIN NA (PORCINE) 40 MG/0.4 ML DISP.SYRIN SQ SCH (09:32)
[2022-12-06] MEDS: METOPROLOL TARTRATE 25 MG TABLET (FP) PO SCH ×2 (10:01→22:19)
[2022-12-06] MEDS ORDERED: ALBUMIN HUMAN 25% 12.5 GM/50 ML VIAL IV ONE (10:30)
[2022-12-06] MEDS: ACETAMINOPHEN 650 MG/20.3 ML ORAL SOLUTION (CUPS) PO PRN (19:04)
[2022-12-07] MEDS: NYSTATIN 500,000 UNITS/5 ML SUSPENSION PO SCH ×3 (00:04→11:17)
[2022-12-07] MEDS: levETIRAcetam 500 MG/5 ML INJECTION VIAL IVPB SCH (06:04)
[2022-12-07 06:53] VITALS: TEMP 98
[2022-12-07 07:13] LABS: BASO % 0.6 % (0-2.0); EOS % 0.1 % (0-4.5); HEMOGLOBIN 7.9 GM/dL (11.7-16.9); LYMPH % 4.4 % (8-40); MCH 29.1 pg (25.7-33.7); MCHC 34.3 g/dl (32.0-35.9); MEAN PLT VOLUME 9.1 fl (7.5-11.1); MONO % 12.6 % (3.8-10.2); NEUT % 82.3 % (42.8-82.8); PLATELET COUNT 270 10^3/uL (134-434); RBC 2.71 M/mm3 (4.00-5.60); RDW 18.3 % (11.9-15.9); WHITE BLOOD COUNT 3.5 K/mm3 (4.0-10.0)
[2022-12-07 07:25] LABS: CHLORIDE 108 mmol/L (98-107); SODIUM 142 mmol/L (136-145)
[2022-12-07 07:28] LABS: CALCIUM 7.4 mg/dL (8.5-10.1)
[2022-12-07 07:29] LABS: ALBUMIN 1.7 g/dl (3.4-5.0); ANION GAP 3 MMOL/L (8-16); BLOOD UREA NITROGEN 30.4 mg/dL (7-18); CO2 31 mmol/L (21-32); GLUCOSE,RANDOM 117 mg/dL (74-106); MAGNESIUM 1.8 mg/dL (1.8-2.4)
[2022-12-07 07:32] LABS: CREATININE < 0.2 mg/dL (0.55-1.3); PHOSPHOROUS 2.5 mg/dL (2.5-4.9); SGOT/AST 22 U/L (15-37); SGPT/ALT 19 U/L (13-61)
[2022-12-07 07:33] LABS: BILIRUBIN,TOTAL 0.5 mg/dL (0.2-1); TOT PROT 4.6 g/dl (6.4-8.2)
[2022-12-07 07:34] LABS: ALK PHOS 130 U/L (45-117)
[2022-12-07] MEDS: AMINO ACIDS/PROTEIN HYDROLYS 30 ML LIQUID.PKT PO SCH ×3 (08:43→18:02)
[2022-12-07] MEDS: MIDODRINE HCL 5 MG TABLET PO SCH ×3 (09:59→17:08)
[2022-12-07] MEDS ORDERED: ASCORBIC ACID 500 MG TABLET (FP) PO SCH (10:00)
[2022-12-07] MEDS ORDERED: ZINC SULFATE 220 MG CAPSULE (FP) PO SCH (10:00)
[2022-12-07] MEDS: PANTOPRAZOLE SODIUM 40 MG VIAL IVPUSH SCH (10:00)
[2022-12-07] MEDS: ENOXAPARIN NA (PORCINE) 40 MG/0.4 ML DISP.SYRIN SQ SCH (10:00)
[2022-12-07] MEDS: METOPROLOL TARTRATE 25 MG TABLET (FP) PO SCH (10:01)
[2022-12-07] MEDS: COLLAGENASE CLOSTRIDIUM HIST. 30 GRAMS TUBE TP SCH (10:02)
[2022-12-07] MEDS: SIMETHICONE 40 MG/0.6 ML BOTTLE GT SCH ×2 (10:34→14:50)
[2022-12-07] MEDS: ZINC OXIDE/PANTHENOL/VITAMIN E 56 GM TUBE TP SCH (11:00)
[2022-12-07] MEDS: LYTES/YERBA SANTA 240 ML BOTTLE MM SCH (11:00)
[2022-12-07 11:33] VITALS: BP 94/78
[2022-12-07] MEDS ORDERED: ACETAMINOPHEN 1000 MG/100 ML BAG IVPB PRN (11:45)
[2022-12-07 15:34] VITALS: PULSE 87; RESP 17
== END 2022-12-07 17:58 | DRG 3 ==
LOC: JER 14:48 → JERBED 19:53 → J4W 10-10 17:22 → JICU 10-12 19:37 → J4W 10-12 19:37 → JICU 10-12 22:44 → J2W 11-29 06:35
PROVIDERS: ADMIT Internal Medicine; ATTEND Internal Medicine
PROC: 0DTF0ZZ Resection of Right Large Intestine, Open Approach (ICD-10-PCS; 2022-10-12)
PROC: 0YQ50ZZ Repair Right Inguinal Region, Open Approach (ICD-10-PCS; 2022-10-12)
PROC: 30233L1 Transfusion of Nonautologous Fresh Plasma into Peripheral Vein, Percutaneous Approach (ICD-10-PCS; 2022-10-12)
PROC: 30233K1 Transfusion of Nonautologous Frozen Plasma into Peripheral Vein, Percutaneous Approach (ICD-10-PCS; 2022-10-12)
PROC: 30233N1 Transfusion of Nonautologous Red Blood Cells into Peripheral Vein, Percutaneous Approach (ICD-10-PCS; 2022-10-12)
PROC: 0W9G3ZZ Drainage of Peritoneal Cavity, Percutaneous Approach (ICD-10-PCS; 2022-10-18)
PROC: 05HN33Z Insertion of Infusion Device into Left Internal Jugular Vein, Percutaneous Approach (ICD-10-PCS; 2022-10-18)
PROC: B544ZZA Ultrasonography of Left Jugular Veins, Guidance (ICD-10-PCS; 2022-10-18)
PROC: 5A1955Z Respiratory Ventilation, Greater than 96 Consecutive Hours (ICD-10-PCS; 2022-10-26)
PROC: 4A133B1 Monitoring of Arterial Pressure, Peripheral, Percutaneous Approach (ICD-10-PCS; 2022-10-26)
PROC: 0BH17EZ Insertion of Endotracheal Airway into Trachea, Via Natural or Artificial Opening (ICD-10-PCS; 2022-10-26)
PROC: 05HM33Z Insertion of Infusion Device into Right Internal Jugular Vein, Percutaneous Approach (ICD-10-PCS; 2022-10-26)
PROC: B543ZZA Ultrasonography of Right Jugular Veins, Guidance (ICD-10-PCS; 2022-10-26)
PROC: 0W9930Z Drainage of Right Pleural Cavity with Drainage Device, Percutaneous Approach (ICD-10-PCS; 2022-10-28)
PROC: 0DNW0ZZ Release Peritoneum, Open Approach (ICD-10-PCS; 2022-11-05)
PROC: 4A133J1 Monitoring of Arterial Pulse, Peripheral, Percutaneous Approach (ICD-10-PCS; 2022-11-05)
PROC: 05HN33Z Insertion of Infusion Device into Left Internal Jugular Vein, Percutaneous Approach (ICD-10-PCS; 2022-11-05)
PROC: B544ZZA Ultrasonography of Left Jugular Veins, Guidance (ICD-10-PCS; 2022-11-05)
PROC: 05HB33Z Insertion of Infusion Device into Right Basilic Vein, Percutaneous Approach (ICD-10-PCS; 2022-11-05)
PROC: 0B110Z4 Bypass Trachea to Cutaneous, Open Approach (ICD-10-PCS; principal; 2022-11-05 14:00)
PROC: 0DNW0ZZ Release Peritoneum, Open Approach (ICD-10-PCS; 2022-11-05 14:00)
PROC: 0DH64UZ Insertion of Feeding Device into Stomach, Percutaneous Endoscopic Approach (ICD-10-PCS; 2022-12-04)
PROC: 0DJ08ZZ Inspection of Upper Intestinal Tract, Via Natural or Artificial Opening Endoscopic (ICD-10-PCS; 2022-12-04)
DX: C18.9 Malignant neoplasm of colon, unspecified (principal); A41.9 Sepsis, unspecified organism; E43 Unspecified severe protein-calorie malnutrition; J96.01 Acute respiratory failure with hypoxia; R65.21 Severe sepsis with septic shock; K65.9 Peritonitis, unspecified; K65.1 Peritoneal abscess; E87.20 Acidosis, unspecified; I97.89 Other postprocedural complications and disorders of the circulatory system, not elsewhere classified; N17.9 Acute kidney failure, unspecified; J98.11 Atelectasis; D61.818 Other pancytopenia; E87.0 Hyperosmolality and hypernatremia; J93.9 Pneumothorax, unspecified; C78.7 Secondary malignant neoplasm of liver and intrahepatic bile duct; R18.8 Other ascites; C77.2 Secondary and unspecified malignant neoplasm of intra-abdominal lymph nodes; Y83.9 Surgical procedure, unspecified as the cause of abnormal reaction of the patient, or of later complication, without mention of misadventure at the time of the procedure; E87.70 Fluid overload, unspecified; Z68.21 Body mass index [BMI] 21.0-21.9, adult; T81.89XA Other complications of procedures, not elsewhere classified, initial encounter; I48.91 Unspecified atrial fibrillation; R56.9 Unspecified convulsions; D64.9 Anemia, unspecified; E87.6 Hypokalemia; E87.5 Hyperkalemia; D72.819 Decreased white blood cell count, unspecified; D69.6 Thrombocytopenia, unspecified; I95.9 Hypotension, unspecified; D50.9 Iron deficiency anemia, unspecified; K40.90 Unilateral inguinal hernia, without obstruction or gangrene, not specified as recurrent; K66.0 Peritoneal adhesions (postprocedural) (postinfection); R62.7 Adult failure to thrive
CPT/HCPCS: 0241U-QW; 36415; 36430; 36600; 49406; 70450-TC; 71045-TC-FY; 71046-TC-FY; 71250-TC; 71260-TC; 71275-TC; 74018-TC-FY; 74174-TC; 74176-TC; 74177-TC; 76700-TC; 76775-TC; 76856-TC; 80048; 80053; 80061; 80076; 80162; 81003; 82042; 82105; 82140; 82150; 82272; 82308; 82330; 82378; 82436; 82542; 82550; 82553; 82570; 82728; 82803; 82945; 82962; 83036; 83050; 83540; 83550; 83605; 83615; 83735; 83880; 83935; 83986; 84100; 84133; 84134; 84156; 84157; 84300; 84443; 84466; 84478; 84484; 84540; 85025; 85027; 85045; 85610; 85730; 86022; 86140; 86300; 86301; 86304; 86850; 86900; 86901; 86922; 87040; 87070; 87075; 87086; 87102; 87116; 87186; 87205; 87206; 87210; 87389; 87522; 88108; 88304-TC; 88305-TC; 88307-TC; 88309-TC; 93005; 93010; 93306-TC; 93931; 93970-TC; 93971; 94002; 94660; 94760; 95816; 97116-GP; 97161-GP; 99285-25; C1769; C9803-CS; E0186; J0878; J1644; J1756; J2997; J3490; P9017; P9034; P9047; P9058; Q9967; Q9968; U0003; U0005

== ENCOUNTER 2023-01-28 11:16 | Inpatient (IN) | payer BC, OTHER ==
[2023-01-28] MEDS ORDERED: PIPERACILLIN/TAZOB 3.375 GM 3.375 GM in DEXTROSE 5%-WATER - 50 ML IVPB ONE (12:07)
[2023-01-28] MEDS ORDERED: PIPERACILLIN/TAZOB 3.375 GM 3.375 GM/50 ML BAG IVPB ONE (12:21)
[2023-01-28 12:48] LABS: BASO % 0.6 % (0-2.0); EOS % 0.5 % (0-4.5); HEMATOCRIT 24.8 % (35.4-49); HEMOGLOBIN 8.2 GM/dL (11.7-16.9); MCH 28.3 pg (25.7-33.7); MCHC 33.1 g/dl (32.0-35.9); MEAN CELL VOLUME 85.7 fl (80-96); MEAN PLT VOLUME 7.7 fl (7.5-11.1); MONO % 7.9 % (3.8-10.2); PLATELET COUNT 362 10^3/uL (134-434); RBC 2.89 M/mm3 (4.00-5.60); RDW 17.7 % (11.9-15.9); WHITE BLOOD COUNT 13.5 K/mm3 (4.0-10.0)
[2023-01-28 12:54] LABS: INR 1.28 (0.83-1.09); PROTHROMBIN TIME (PATIENT) 14.8 SEC (9.7-13.0)
[2023-01-28 13:11] LABS: POTASSIUM 3.8 mmol/L (3.5-5.1)
[2023-01-28 13:13] LABS: BLOOD UREA NITROGEN 8.2 mg/dL (7-18)
[2023-01-28 13:17] LABS: CREATININE 0.2 mg/dL (0.55-1.3)
[2023-01-28 13:19] LABS: BILIRUBIN,TOTAL 0.6 mg/dL (0.2-1); TOT PROT 6.2 g/dl (6.4-8.2)
[2023-01-28] MEDS ORDERED: DEXTROSE 5%-WATER 100 ML IVPB ONE (18:47)
[2023-01-28] MEDS ORDERED: MEROPENEM 1 GM VIAL (RESTRICTED TO ID) IVPB ONE (18:47)
[2023-01-28] MEDS: MEROPENEM 1 GM in DEXTROSE 5%-WATER 100 ML IVPB SCH (18:51)
[2023-01-28] MEDS ORDERED: PATIENT'S OWN MEDICATION (NON-FORMULARY) (Melatonin [Melatonin] 3 MG Tablet) GT SCH (22:00)
[2023-01-28] MEDS: ACETAMINOPHEN 1000 MG/100 ML BAG IVPB PRN (22:24)
[2023-01-28] MEDS: VANCOMYCIN/WATER FOR INJ (PEG) 1,000 MG/200 ML BAG IVPB SCH (22:33)
[2023-01-28] MEDS: MELATONIN 5 MG, MELATONIN 4 MG GT SCH (22:35)
[2023-01-28] MEDS: levETIRAcetam 500 MG/5 ML ORAL SOLUTION (UNIT-DOSE CUPS) GT SCH (22:36)
[2023-01-28] MEDS: MUPIROCIN 2% TOPICAL OINTMENT 22 GM TUBE TP SCH (23:50)
[2023-01-29] MEDS: SIMETHICONE 40 MG/0.6 ML BOTTLE GT SCH ×5 (00:01→21:27)
[2023-01-29] MEDS: FAMOTIDINE 20 MG/2.5 ML ORAL LIQUID GT SCH ×3 (00:01→21:27)
[2023-01-29] MEDS: NYSTATIN 500,000 UNITS/5 ML SUSPENSION PO SCH ×5 (01:28→23:37)
[2023-01-29] MEDS: MEROPENEM 1 GM in DEXTROSE 5%-WATER 100 ML IVPB SCH ×2 (01:53→09:35)
[2023-01-29] MEDS ORDERED: PIPERACILLIN/TAZOB 3.375 GM 3.375 GM in DEXTROSE 5%-WATER - 50 ML IVPB SCH (02:00)
[2023-01-29] MEDS: ACETAMINOPHEN 1000 MG/100 ML BAG IVPB PRN (06:28)
[2023-01-29] MEDS: VANCOMYCIN/WATER FOR INJ (PEG) 1,000 MG/200 ML BAG IVPB SCH ×3 (06:35→23:37)
[2023-01-29 09:17] LABS: BASO % 0.3 % (0-2.0); EOS % 0.5 % (0-4.5); HEMATOCRIT 25.6 % (35.4-49); HEMOGLOBIN 8.6 GM/dL (11.7-16.9); LYMPH % 2.4 % (8-40); MCH 28.5 pg (25.7-33.7); MCHC 33.6 g/dl (32.0-35.9); MEAN CELL VOLUME 84.7 fl (80-96); MEAN PLT VOLUME 8.1 fl (7.5-11.1); MONO % 6.9 % (3.8-10.2); NEUT % 89.9 % (42.8-82.8); PLATELET COUNT 389 10^3/uL (134-434); RBC 3.02 M/mm3 (4.00-5.60); RDW 17.3 % (11.9-15.9); WHITE BLOOD COUNT 12.9 K/mm3 (4.0-10.0)
[2023-01-29] MEDS: ENOXAPARIN NA (PORCINE) 40 MG/0.4 ML DISP.SYRIN SQ SCH (09:20)
[2023-01-29] MEDS: MIDODRINE HCL 5 MG TABLET GT SCH ×3 (09:34→17:01)
[2023-01-29] MEDS: NADOLOL 40 MG TABLET (FP) GT SCH (09:34)
[2023-01-29] MEDS: levETIRAcetam 500 MG/5 ML ORAL SOLUTION (UNIT-DOSE CUPS) GT SCH ×2 (09:35→21:25)
[2023-01-29 09:36] LABS: POTASSIUM 3.7 mmol/L (3.5-5.1)
[2023-01-29] MEDS: MUPIROCIN 2% TOPICAL OINTMENT 22 GM TUBE TP SCH ×2 (09:39→21:26)
[2023-01-29 09:42] LABS: BLOOD UREA NITROGEN 8.1 mg/dL (7-18)
[2023-01-29 09:45] LABS: CREATININE 0.3 mg/dL (0.55-1.3)
[2023-01-29] MEDS ORDERED: PATIENT'S OWN MEDICATION (NON-FORMULARY) (Omeprazole Magnesium [Omeprazole Magnesium] 20 M PO SCH (10:00)
[2023-01-29] MEDS ORDERED: FENTANYL CITRATE/PF 50 MCG/ML VIAL ONE (10:53)
[2023-01-29] MEDS ORDERED: SODIUM CHLORIDE 500 ML IV ONE (11:00)
[2023-01-29] MEDS ORDERED: FENTANYL CITRATE/PF 50 MCG/ML VIAL IVPUSH ONE (11:25)
[2023-01-29] MEDS ORDERED: CEFTAZIDIME PENTAHYDRATE 1 GM in DEXTROSE 5%-WATER - 50 ML IVPB SCH (12:00)
[2023-01-29] MEDS: ASCORBIC ACID 500 MG/5 ML UNIT DOSE CUP GT SCH (13:43)
[2023-01-29] MEDS: CEFTAZIDIME PENTAHYDRATE 1 GM in DEXTROSE 5%-WATER - 50 ML IVPB SCH (18:30)
[2023-01-29] MEDS: MELATONIN 5 MG, MELATONIN 4 MG GT SCH (21:25)
[2023-01-30] MEDS: CEFTAZIDIME PENTAHYDRATE 1 GM in DEXTROSE 5%-WATER - 50 ML IVPB SCH ×3 (01:18→18:46)
[2023-01-30] MEDS: MEROPENEM 1 GM in DEXTROSE 5%-WATER 100 ML IVPB SCH ×2 (04:14→04:16)
[2023-01-30] MEDS: VANCOMYCIN 1,000 MG in DEXTROSE 5%-WATER - 250 ML IVPB SCH ×2 (04:15→04:16)
[2023-01-30] MEDS: NYSTATIN 500,000 UNITS/5 ML SUSPENSION PO SCH ×4 (05:36→23:57)
[2023-01-30 08:39] LABS: BASO % 0.6 % (0-2.0); EOS % 1.5 % (0-4.5); HEMOGLOBIN 8.7 GM/dL (11.7-16.9); LYMPH % 4.2 % (8-40); MCH 28.1 pg (25.7-33.7); MCHC 33.2 g/dl (32.0-35.9); MEAN CELL VOLUME 84.4 fl (80-96); MEAN PLT VOLUME 7.4 fl (7.5-11.1); MONO % 9.5 % (3.8-10.2); NEUT % 84.2 % (42.8-82.8); PLATELET COUNT 458 10^3/uL (134-434); RBC 3.08 M/mm3 (4.00-5.60); RDW 17.9 % (11.9-15.9); WHITE BLOOD COUNT 12.7 K/mm3 (4.0-10.0)
[2023-01-30 09:01] LABS: POTASSIUM 3.8 mmol/L (3.5-5.1)
[2023-01-30 09:04] LABS: ALBUMIN 2.2 g/dl (3.4-5.0); CALCIUM 8.2 mg/dL (8.5-10.1)
[2023-01-30 09:07] LABS: CREATININE 0.2 mg/dL (0.55-1.3)
[2023-01-30 09:09] LABS: BILIRUBIN,TOTAL 0.2 mg/dL (0.2-1); TOT PROT 6.4 g/dl (6.4-8.2)
[2023-01-30] MEDS: levETIRAcetam 500 MG/5 ML ORAL SOLUTION (UNIT-DOSE CUPS) GT SCH ×2 (09:20→22:03)
[2023-01-30] MEDS: ENOXAPARIN NA (PORCINE) 40 MG/0.4 ML DISP.SYRIN SQ SCH (09:22)
[2023-01-30] MEDS: NADOLOL 40 MG TABLET (FP) GT SCH (09:22)
[2023-01-30] MEDS: SIMETHICONE 40 MG/0.6 ML BOTTLE GT SCH ×4 (09:23→22:04)
[2023-01-30] MEDS: FAMOTIDINE 20 MG/2.5 ML ORAL LIQUID GT SCH ×2 (09:23→22:04)
[2023-01-30] MEDS: MIDODRINE HCL 5 MG TABLET GT SCH ×3 (09:24→17:19)
[2023-01-30] MEDS: ASCORBIC ACID 500 MG/5 ML UNIT DOSE CUP GT SCH (09:24)
[2023-01-30] MEDS: MUPIROCIN 2% TOPICAL OINTMENT 22 GM TUBE TP SCH ×2 (09:42→22:04)
[2023-01-30] MEDS ORDERED: oxyCODONE HCL 5 MG TABLET PO PRN ×2 (12:01)
[2023-01-30] MEDS ORDERED: oxyCODONE HCL 5 MG TABLET GT PRN (12:11)
[2023-01-30] MEDS: oxyCODONE HCL 5 MG TABLET GT PRN ×2 (12:16→19:10)
[2023-01-30] MEDS: VANCOMYCIN/WATER FOR INJ (PEG) 1,000 MG/200 ML BAG IVPB SCH ×2 (12:17→23:57)
[2023-01-30] MEDS: AMINO ACIDS/PROTEIN HYDROLYS 30 ML LIQUID.PKT PO SCH (17:19)
[2023-01-30] MEDS: MELATONIN 5 MG, MELATONIN 4 MG GT SCH (22:03)
[2023-01-31] MEDS: CEFTAZIDIME PENTAHYDRATE 1 GM in DEXTROSE 5%-WATER - 50 ML IVPB SCH ×3 (01:42→17:48)
[2023-01-31] MEDS: NYSTATIN 500,000 UNITS/5 ML SUSPENSION PO SCH ×3 (05:50→17:47)
[2023-01-31 08:20] LABS: BASO % 1.1 % (0-2.0); EOS % 3.4 % (0-4.5); HEMATOCRIT 26.5 % (35.4-49); HEMOGLOBIN 8.9 GM/dL (11.7-16.9); LYMPH % 6.7 % (8-40); MCH 28.4 pg (25.7-33.7); MCHC 33.5 g/dl (32.0-35.9); MEAN CELL VOLUME 84.8 fl (80-96); MEAN PLT VOLUME 7.5 fl (7.5-11.1); MONO % 12.7 % (3.8-10.2); NEUT % 76.1 % (42.8-82.8); PLATELET COUNT 444 10^3/uL (134-434); RBC 3.12 M/mm3 (4.00-5.60); RDW 17.8 % (11.9-15.9); WHITE BLOOD COUNT 8.3 K/mm3 (4.0-10.0)
[2023-01-31 09:03] LABS: CALCIUM 8.2 mg/dL (8.5-10.1)
[2023-01-31 09:04] LABS: MAGNESIUM 1.9 mg/dL (1.8-2.4)
[2023-01-31 09:06] LABS: CREATININE 0.3 mg/dL (0.55-1.3)
[2023-01-31 09:07] LABS: BILIRUBIN,TOTAL 0.2 mg/dL (0.2-1); TOT PROT 6.1 g/dl (6.4-8.2)
[2023-01-31 09:08] LABS: BLOOD UREA NITROGEN 13.4 mg/dL (7-18)
[2023-01-31] MEDS: AMINO ACIDS/PROTEIN HYDROLYS 30 ML LIQUID.PKT PO SCH ×2 (10:21→17:48)
[2023-01-31] MEDS: levETIRAcetam 500 MG/5 ML ORAL SOLUTION (UNIT-DOSE CUPS) GT SCH ×2 (10:22→21:09)
[2023-01-31] MEDS: MIDODRINE HCL 5 MG TABLET GT SCH ×3 (10:22→17:48)
[2023-01-31] MEDS: MUPIROCIN 2% TOPICAL OINTMENT 22 GM TUBE TP SCH ×2 (10:22→21:01)
[2023-01-31] MEDS: ENOXAPARIN NA (PORCINE) 40 MG/0.4 ML DISP.SYRIN SQ SCH (10:26)
[2023-01-31] MEDS: NADOLOL 40 MG TABLET (FP) GT SCH (10:29)
[2023-01-31] MEDS: FAMOTIDINE 20 MG/2.5 ML ORAL LIQUID GT SCH ×2 (10:30→21:09)
[2023-01-31] MEDS: ASCORBIC ACID 500 MG/5 ML UNIT DOSE CUP GT SCH (10:30)
[2023-01-31] MEDS: SIMETHICONE 40 MG/0.6 ML BOTTLE GT SCH ×4 (10:30→22:17)
[2023-01-31] MEDS: VANCOMYCIN/WATER FOR INJ (PEG) 1,000 MG/200 ML BAG IVPB SCH (13:43)
[2023-01-31] MEDS: oxyCODONE HCL 5 MG TABLET GT PRN ×2 (13:51→20:47)
[2023-01-31] MEDS: MELATONIN 5 MG, MELATONIN 4 MG GT SCH (21:06)
[2023-02-01] MEDS: NYSTATIN 500,000 UNITS/5 ML SUSPENSION PO SCH ×5 (00:01→23:46)
[2023-02-01] MEDS: VANCOMYCIN/WATER FOR INJ (PEG) 1,000 MG/200 ML BAG IVPB SCH ×3 (00:02→23:46)
[2023-02-01] MEDS: CEFTAZIDIME PENTAHYDRATE 1 GM in DEXTROSE 5%-WATER - 50 ML IVPB SCH ×3 (01:14→17:23)
[2023-02-01 08:53] LABS: BASO % 1.2 % (0-2.0); EOS % 2.7 % (0-4.5); HEMATOCRIT 28.1 % (35.4-49); HEMOGLOBIN 9.4 GM/dL (11.7-16.9); LYMPH % 6.8 % (8-40); MCH 28.4 pg (25.7-33.7); MCHC 33.4 g/dl (32.0-35.9); MEAN CELL VOLUME 85.1 fl (80-96); MEAN PLT VOLUME 7.6 fl (7.5-11.1); MONO % 10.4 % (3.8-10.2); NEUT % 78.9 % (42.8-82.8); PLATELET COUNT 479 10^3/uL (134-434); RDW 18.4 % (11.9-15.9); WHITE BLOOD COUNT 9.9 K/mm3 (4.0-10.0)
[2023-02-01 09:07] LABS: POTASSIUM 4.2 mmol/L (3.5-5.1)
[2023-02-01] MEDS: levETIRAcetam 500 MG/5 ML ORAL SOLUTION (UNIT-DOSE CUPS) GT SCH ×2 (09:24→23:00)
[2023-02-01] MEDS: MIDODRINE HCL 5 MG TABLET GT SCH ×3 (09:25→17:23)
[2023-02-01 09:26] LABS: ALBUMIN 2.3 g/dl (3.4-5.0); BLOOD UREA NITROGEN 14.8 mg/dL (7-18); CALCIUM 8.6 mg/dL (8.5-10.1)
[2023-02-01] MEDS: MUPIROCIN 2% TOPICAL OINTMENT 22 GM TUBE TP SCH (09:26)
[2023-02-01] MEDS: AMINO ACIDS/PROTEIN HYDROLYS 30 ML LIQUID.PKT PO SCH ×2 (09:26→17:23)
[2023-02-01 09:27] LABS: MAGNESIUM 1.9 mg/dL (1.8-2.4)
[2023-02-01] MEDS: NADOLOL 40 MG TABLET (FP) GT SCH (09:27)
[2023-02-01] MEDS: SIMETHICONE 40 MG/0.6 ML BOTTLE GT SCH ×4 (09:27→23:00)
[2023-02-01] MEDS: ENOXAPARIN NA (PORCINE) 40 MG/0.4 ML DISP.SYRIN SQ SCH (09:27)
[2023-02-01] MEDS: FAMOTIDINE 20 MG/2.5 ML ORAL LIQUID GT SCH (09:28)
[2023-02-01 09:30] LABS: CREATININE 0.3 mg/dL (0.55-1.3)
[2023-02-01 09:32] LABS: BILIRUBIN,TOTAL 0.2 mg/dL (0.2-1); TOT PROT 6.7 g/dl (6.4-8.2)
[2023-02-01] MEDS: oxyCODONE HCL 5 MG TABLET GT PRN ×2 (11:20→18:06)
[2023-02-01] MEDS: ASCORBIC ACID 500 MG/5 ML UNIT DOSE CUP GT SCH (12:15)
[2023-02-01] MEDS: MELATONIN 5 MG, MELATONIN 4 MG GT SCH (23:00)
[2023-02-02] MEDS ORDERED: cefTAZidime PENTAHYDRATE 1 GM VIAL (RESTRICTED TO ID) ONE (00:24)
[2023-02-02] MEDS: oxyCODONE HCL 5 MG TABLET GT PRN ×4 (00:26→23:23)
[2023-02-02] MEDS: MUPIROCIN 2% TOPICAL OINTMENT 22 GM TUBE TP SCH ×3 (01:53→22:47)
[2023-02-02] MEDS: FAMOTIDINE 20 MG/2.5 ML ORAL LIQUID GT SCH ×3 (01:54→22:49)
[2023-02-02] MEDS: CEFTAZIDIME PENTAHYDRATE 1 GM in DEXTROSE 5%-WATER - 50 ML IVPB SCH ×3 (01:55→18:13)
[2023-02-02] MEDS: NYSTATIN 500,000 UNITS/5 ML SUSPENSION PO SCH ×4 (06:31→23:12)
[2023-02-02 08:13] LABS: EOS % 3.3 % (0-4.5); HEMATOCRIT 27.9 % (35.4-49); HEMOGLOBIN 9.2 GM/dL (11.7-16.9); LYMPH % 8.5 % (8-40); MCH 28.3 pg (25.7-33.7); MEAN CELL VOLUME 85.6 fl (80-96); MEAN PLT VOLUME 7.6 fl (7.5-11.1); MONO % 12.4 % (3.8-10.2); NEUT % 74.8 % (42.8-82.8); PLATELET COUNT 467 10^3/uL (134-434); RBC 3.27 M/mm3 (4.00-5.60); RDW 18.2 % (11.9-15.9)
[2023-02-02 08:33] LABS: POTASSIUM 4.2 mmol/L (3.5-5.1)
[2023-02-02 08:36] LABS: ALBUMIN 2.2 g/dl (3.4-5.0); BLOOD UREA NITROGEN 14.2 mg/dL (7-18); CALCIUM 8.3 mg/dL (8.5-10.1); MAGNESIUM 2.1 mg/dL (1.8-2.4)
[2023-02-02 08:39] LABS: CREATININE 0.3 mg/dL (0.55-1.3)
[2023-02-02 08:41] LABS: TOT PROT 6.4 g/dl (6.4-8.2)
[2023-02-02 08:43] LABS: BILIRUBIN,TOTAL 0.4 mg/dL (0.2-1)
[2023-02-02] MEDS: AMINO ACIDS/PROTEIN HYDROLYS 30 ML LIQUID.PKT PO SCH ×2 (08:47→17:27)
[2023-02-02] MEDS: levETIRAcetam 500 MG/5 ML ORAL SOLUTION (UNIT-DOSE CUPS) GT SCH ×2 (09:44→22:47)
[2023-02-02] MEDS: NADOLOL 40 MG TABLET (FP) GT SCH (09:44)
[2023-02-02] MEDS: MIDODRINE HCL 5 MG TABLET GT SCH ×3 (09:48→17:27)
[2023-02-02] MEDS: ENOXAPARIN NA (PORCINE) 40 MG/0.4 ML DISP.SYRIN SQ SCH (09:48)
[2023-02-02] MEDS: ASCORBIC ACID 500 MG/5 ML UNIT DOSE CUP GT SCH (10:23)
[2023-02-02] MEDS: SIMETHICONE 40 MG/0.6 ML BOTTLE GT SCH ×4 (11:25→22:50)
[2023-02-02] MEDS: VANCOMYCIN/WATER FOR INJ (PEG) 1,000 MG/200 ML BAG IVPB SCH ×2 (11:26→23:12)
[2023-02-02 20:28] VITALS: BMI 18.2
[2023-02-02] MEDS: BANATROL PLUS POWDER PACKET PO SCH (22:47)
[2023-02-02] MEDS: MELATONIN 5 MG, MELATONIN 4 MG GT SCH (22:48)
[2023-02-03] MEDS: CEFTAZIDIME PENTAHYDRATE 1 GM in DEXTROSE 5%-WATER - 50 ML IVPB SCH ×3 (02:37→17:48)
[2023-02-03] MEDS: NYSTATIN 500,000 UNITS/5 ML SUSPENSION PO SCH ×3 (06:47→17:55)
[2023-02-03] MEDS: BANATROL PLUS POWDER PACKET PO SCH ×3 (06:47→21:38)
[2023-02-03 08:05] LABS: EOS % 3.1 % (0-4.5); HEMATOCRIT 30.1 % (35.4-49); HEMOGLOBIN 9.7 GM/dL (11.7-16.9); LYMPH % 8.2 % (8-40); MCH 27.7 pg (25.7-33.7); MCHC 32.2 g/dl (32.0-35.9); MEAN CELL VOLUME 86.2 fl (80-96); MEAN PLT VOLUME 7.7 fl (7.5-11.1); MONO % 11.8 % (3.8-10.2); NEUT % 75.9 % (42.8-82.8); PLATELET COUNT 487 10^3/uL (134-434); RBC 3.49 M/mm3 (4.00-5.60); RDW 18.7 % (11.9-15.9); WHITE BLOOD COUNT 7.8 K/mm3 (4.0-10.0)
[2023-02-03 08:19] LABS: POTASSIUM 4.5 mmol/L (3.5-5.1)
[2023-02-03 08:23] LABS: ALBUMIN 2.2 g/dl (3.4-5.0); CALCIUM 8.3 mg/dL (8.5-10.1)
[2023-02-03 08:26] LABS: CREATININE 0.3 mg/dL (0.55-1.3)
[2023-02-03 08:28] LABS: BILIRUBIN,TOTAL 0.4 mg/dL (0.2-1); TOT PROT 6.5 g/dl (6.4-8.2)
[2023-02-03] MEDS: ZINC SULFATE 220 MG CAPSULE (FP) PO SCH (10:01)
[2023-02-03] MEDS: MULTIVITAMINS (DAILY MVI) TABLET (FP) PO SCH (10:01)
[2023-02-03] MEDS: MIDODRINE HCL 5 MG TABLET GT SCH ×3 (10:01→17:46)
[2023-02-03] MEDS: NADOLOL 40 MG TABLET (FP) GT SCH (10:01)
[2023-02-03] MEDS: AMINO ACIDS/PROTEIN HYDROLYS 30 ML LIQUID.PKT PO SCH ×2 (10:13→17:55)
[2023-02-03] MEDS: levETIRAcetam 500 MG/5 ML ORAL SOLUTION (UNIT-DOSE CUPS) GT SCH ×2 (10:19→21:35)
[2023-02-03] MEDS: SIMETHICONE 40 MG/0.6 ML BOTTLE GT SCH ×4 (10:20→21:35)
[2023-02-03] MEDS: ENOXAPARIN NA (PORCINE) 40 MG/0.4 ML DISP.SYRIN SQ SCH (10:20)
[2023-02-03] MEDS: FAMOTIDINE 20 MG/2.5 ML ORAL LIQUID GT SCH ×2 (10:22→21:35)
[2023-02-03] MEDS ORDERED: BANATROL PLUS POWDER PACKET GT SCH (10:26)
[2023-02-03] MEDS ORDERED: AMINO ACIDS/PROTEIN HYDROLYS 30 ML LIQUID.PKT GT SCH (10:26)
[2023-02-03] MEDS: ASCORBIC ACID 500 MG/5 ML UNIT DOSE CUP GT SCH (10:39)
[2023-02-03] MEDS: MUPIROCIN 2% TOPICAL OINTMENT 22 GM TUBE TP SCH ×2 (10:39→21:48)
[2023-02-03] MEDS: oxyCODONE HCL 5 MG TABLET GT PRN ×2 (10:51→18:03)
[2023-02-03] MEDS: VANCOMYCIN/WATER FOR INJ (PEG) 1,000 MG/200 ML BAG IVPB SCH (13:09)
[2023-02-03] MEDS: MELATONIN 5 MG, MELATONIN 4 MG GT SCH (21:36)
[2023-02-04] MEDS: VANCOMYCIN/WATER FOR INJ (PEG) 1,000 MG/200 ML BAG IVPB SCH ×3 (00:08→17:09)
[2023-02-04] MEDS: NYSTATIN 500,000 UNITS/5 ML SUSPENSION PO SCH ×5 (00:08→23:15)
[2023-02-04] MEDS: CEFTAZIDIME PENTAHYDRATE 1 GM in DEXTROSE 5%-WATER - 50 ML IVPB SCH ×2 (02:28→09:36)
[2023-02-04] MEDS: BANATROL PLUS POWDER PACKET PO SCH ×3 (06:28→22:04)
[2023-02-04] MEDS: AMINO ACIDS/PROTEIN HYDROLYS 30 ML LIQUID.PKT PO SCH ×2 (08:15→16:58)
[2023-02-04 09:04] LABS: BASO % 1.1 % (0-2.0); EOS % 2.5 % (0-4.5); HEMATOCRIT 27.8 % (35.4-49); MCH 27.8 pg (25.7-33.7); MCHC 32.5 g/dl (32.0-35.9); MEAN CELL VOLUME 85.6 fl (80-96); MEAN PLT VOLUME 7.7 fl (7.5-11.1); MONO % 10.2 % (3.8-10.2); NEUT % 79.2 % (42.8-82.8); PLATELET COUNT 474 10^3/uL (134-434); RBC 3.25 M/mm3 (4.00-5.60)
[2023-02-04 09:16] LABS: POTASSIUM 4.2 mmol/L (3.5-5.1)
[2023-02-04 09:19] LABS: ALBUMIN 2.3 g/dl (3.4-5.0); BLOOD UREA NITROGEN 12.6 mg/dL (7-18); CALCIUM 8.5 mg/dL (8.5-10.1)
[2023-02-04 09:26] LABS: CREATININE 0.3 mg/dL (0.55-1.3)
[2023-02-04 09:27] LABS: BILIRUBIN,TOTAL 0.3 mg/dL (0.2-1); TOT PROT 6.6 g/dl (6.4-8.2)
[2023-02-04] MEDS: FAMOTIDINE 20 MG/2.5 ML ORAL LIQUID GT SCH ×2 (09:42→22:10)
[2023-02-04] MEDS: MIDODRINE HCL 5 MG TABLET GT SCH ×3 (09:42→17:11)
[2023-02-04] MEDS: SIMETHICONE 40 MG/0.6 ML BOTTLE GT SCH ×4 (09:42→22:09)
[2023-02-04] MEDS: ZINC SULFATE 220 MG CAPSULE (FP) PO SCH (09:42)
[2023-02-04] MEDS: levETIRAcetam 500 MG/5 ML ORAL SOLUTION (UNIT-DOSE CUPS) GT SCH ×2 (09:42→22:04)
[2023-02-04] MEDS: MUPIROCIN 2% TOPICAL OINTMENT 22 GM TUBE TP SCH ×2 (09:43→22:11)
[2023-02-04] MEDS: MULTIVITAMINS (DAILY MVI) TABLET (FP) PO SCH (09:43)
[2023-02-04] MEDS: NADOLOL 40 MG TABLET (FP) GT SCH (09:43)
[2023-02-04] MEDS: ASCORBIC ACID 500 MG/5 ML UNIT DOSE CUP GT SCH (09:43)
[2023-02-04] MEDS: ENOXAPARIN NA (PORCINE) 40 MG/0.4 ML DISP.SYRIN SQ SCH (09:43)
[2023-02-04] MEDS: oxyCODONE HCL 5 MG TABLET GT PRN ×3 (09:52→23:15)
[2023-02-04] MEDS: CEFTRIAXONE 2 GM in DEXTROSE 5%-WATER 100 ML IVPB SCH (16:58)
[2023-02-04] MEDS: MELATONIN 5 MG, MELATONIN 4 MG GT SCH (22:06)
[2023-02-05] MEDS: VANCOMYCIN/WATER FOR INJ (PEG) 1,000 MG/200 ML BAG IVPB SCH ×2 (05:02→16:33)
[2023-02-05] MEDS: BANATROL PLUS POWDER PACKET PO SCH ×3 (06:19→22:32)
[2023-02-05] MEDS: NYSTATIN 500,000 UNITS/5 ML SUSPENSION PO SCH ×4 (06:20→23:31)
[2023-02-05 08:07] LABS: POTASSIUM 4.4 mmol/L (3.5-5.1)
[2023-02-05 08:11] LABS: ALBUMIN 2.4 g/dl (3.4-5.0); CALCIUM 8.5 mg/dL (8.5-10.1)
[2023-02-05 08:12] LABS: BLOOD UREA NITROGEN 15.6 mg/dL (7-18)
[2023-02-05 08:14] LABS: CREATININE 0.2 mg/dL (0.55-1.3)
[2023-02-05 08:16] LABS: BILIRUBIN,TOTAL 0.4 mg/dL (0.2-1); TOT PROT 6.4 g/dl (6.4-8.2)
[2023-02-05 08:26] LABS: BASO % 1.2 % (0-2.0); EOS % 3.1 % (0-4.5); HEMATOCRIT 28.1 % (35.4-49); HEMOGLOBIN 9.1 GM/dL (11.7-16.9); MCH 27.8 pg (25.7-33.7); MCHC 32.3 g/dl (32.0-35.9); MONO % 12.3 % (3.8-10.2); NEUT % 75.4 % (42.8-82.8); PLATELET COUNT 451 10^3/uL (134-434); RBC 3.26 M/mm3 (4.00-5.60); RDW 19.3 % (11.9-15.9); WHITE BLOOD COUNT 7.7 K/mm3 (4.0-10.0)
[2023-02-05] MEDS: NADOLOL 40 MG TABLET (FP) GT SCH (10:14)
[2023-02-05] MEDS: ZINC SULFATE 220 MG CAPSULE (FP) PO SCH (10:14)
[2023-02-05] MEDS: oxyCODONE HCL 5 MG TABLET GT PRN ×2 (10:15→17:04)
[2023-02-05] MEDS: MIDODRINE HCL 5 MG TABLET GT SCH ×3 (10:15→18:40)
[2023-02-05] MEDS: MULTIVITAMINS (DAILY MVI) TABLET (FP) PO SCH (10:15)
[2023-02-05] MEDS: levETIRAcetam 500 MG/5 ML ORAL SOLUTION (UNIT-DOSE CUPS) GT SCH ×2 (10:20→22:29)
[2023-02-05] MEDS: AMINO ACIDS/PROTEIN HYDROLYS 30 ML LIQUID.PKT PO SCH ×2 (10:20→16:33)
[2023-02-05] MEDS: CEFTRIAXONE 2 GM in DEXTROSE 5%-WATER 100 ML IVPB SCH (10:20)
[2023-02-05] MEDS: FAMOTIDINE 20 MG/2.5 ML ORAL LIQUID GT SCH ×2 (10:21→22:32)
[2023-02-05] MEDS: ENOXAPARIN NA (PORCINE) 40 MG/0.4 ML DISP.SYRIN SQ SCH (10:21)
[2023-02-05] MEDS: SIMETHICONE 40 MG/0.6 ML BOTTLE GT SCH ×4 (10:21→22:31)
[2023-02-05] MEDS: ASCORBIC ACID 500 MG/5 ML UNIT DOSE CUP GT SCH (10:22)
[2023-02-05] MEDS: MUPIROCIN 2% TOPICAL OINTMENT 22 GM TUBE TP SCH ×2 (10:23→22:38)
[2023-02-05] MEDS: MELATONIN 5 MG, MELATONIN 4 MG GT SCH (22:36)
[2023-02-06] MEDS: oxyCODONE HCL 5 MG TABLET GT PRN ×3 (01:31→20:30)
[2023-02-06] MEDS: NYSTATIN 500,000 UNITS/5 ML SUSPENSION PO SCH ×3 (05:46→18:20)
[2023-02-06] MEDS: BANATROL PLUS POWDER PACKET PO SCH ×3 (05:46→21:34)
[2023-02-06] MEDS: VANCOMYCIN/WATER FOR INJ (PEG) 1,000 MG/200 ML BAG IVPB SCH ×2 (05:46→16:20)
[2023-02-06 08:13] LABS: BASO % 1.9 % (0-2.0); EOS % 3.1 % (0-4.5); HEMATOCRIT 28.9 % (35.4-49); HEMOGLOBIN 9.5 GM/dL (11.7-16.9); LYMPH % 9.3 % (8-40); MCH 28.3 pg (25.7-33.7); MCHC 32.9 g/dl (32.0-35.9); MEAN CELL VOLUME 85.9 fl (80-96); MEAN PLT VOLUME 8.2 fl (7.5-11.1); MONO % 12.3 % (3.8-10.2); NEUT % 73.4 % (42.8-82.8); PLATELET COUNT 444 10^3/uL (134-434); RBC 3.37 M/mm3 (4.00-5.60); RDW 19.2 % (11.9-15.9); WHITE BLOOD COUNT 7.1 K/mm3 (4.0-10.0)
[2023-02-06 08:28] LABS: POTASSIUM 4.4 mmol/L (3.5-5.1)
[2023-02-06 08:42] LABS: ALBUMIN 2.2 g/dl (3.4-5.0); BLOOD UREA NITROGEN 16.3 mg/dL (7-18); CALCIUM 8.3 mg/dL (8.5-10.1)
[2023-02-06 08:43] LABS: BILIRUBIN,TOTAL 0.4 mg/dL (0.2-1); TOT PROT 6.3 g/dl (6.4-8.2)
[2023-02-06 08:45] LABS: CREATININE 0.3 mg/dL (0.55-1.3)
[2023-02-06] MEDS: AMINO ACIDS/PROTEIN HYDROLYS 30 ML LIQUID.PKT PO SCH ×2 (08:47→18:20)
[2023-02-06] MEDS: ENOXAPARIN NA (PORCINE) 40 MG/0.4 ML DISP.SYRIN SQ SCH (09:37)
[2023-02-06] MEDS: SIMETHICONE 40 MG/0.6 ML BOTTLE GT SCH ×4 (09:38→21:35)
[2023-02-06] MEDS: FAMOTIDINE 20 MG/2.5 ML ORAL LIQUID GT SCH ×2 (09:38→21:35)
[2023-02-06] MEDS: NADOLOL 40 MG TABLET (FP) GT SCH (09:39)
[2023-02-06] MEDS: ZINC SULFATE 220 MG CAPSULE (FP) PO SCH (09:39)
[2023-02-06] MEDS: CEFTRIAXONE 2 GM in DEXTROSE 5%-WATER 100 ML IVPB SCH (09:39)
[2023-02-06] MEDS: MULTIVITAMINS (DAILY MVI) TABLET (FP) PO SCH (09:39)
[2023-02-06] MEDS: MIDODRINE HCL 5 MG TABLET GT SCH ×3 (09:39→18:20)
[2023-02-06] MEDS: ASCORBIC ACID 500 MG/5 ML UNIT DOSE CUP GT SCH (09:39)
[2023-02-06] MEDS: levETIRAcetam 500 MG/5 ML ORAL SOLUTION (UNIT-DOSE CUPS) GT SCH ×2 (09:40→21:34)
[2023-02-06] MEDS: MUPIROCIN 2% TOPICAL OINTMENT 22 GM TUBE TP SCH ×2 (15:20→21:42)
[2023-02-06] MEDS ORDERED: LYTES/YERBA SANTA 60 ML SPRAY MM PRN (15:35)
[2023-02-06] MEDS ORDERED: LYTES/YERBA SANTA 240 ML BOTTLE MM SCH (15:45)
[2023-02-06] MEDS: MELATONIN 5 MG, MELATONIN 4 MG GT SCH (21:35)
[2023-02-07] MEDS: NYSTATIN 500,000 UNITS/5 ML SUSPENSION PO SCH ×5 (00:24→23:50)
[2023-02-07] MEDS: BANATROL PLUS POWDER PACKET PO SCH ×3 (05:48→21:16)
[2023-02-07] MEDS: VANCOMYCIN/WATER FOR INJ (PEG) 1,000 MG/200 ML BAG IVPB SCH (05:48)
[2023-02-07 08:52] LABS: BASO % 1.2 % (0-2.0); EOS % 2.4 % (0-4.5); HEMATOCRIT 29.8 % (35.4-49); LYMPH % 7.8 % (8-40); MCH 28.9 pg (25.7-33.7); MCHC 33.7 g/dl (32.0-35.9); MEAN CELL VOLUME 85.8 fl (80-96); NEUT % 76.6 % (42.8-82.8); PLATELET COUNT 454 10^3/uL (134-434); RBC 3.47 M/mm3 (4.00-5.60); RDW 19.8 % (11.9-15.9); WHITE BLOOD COUNT 7.9 K/mm3 (4.0-10.0)
[2023-02-07 09:05] LABS: POTASSIUM 4.5 mmol/L (3.5-5.1)
[2023-02-07 09:07] LABS: CALCIUM 8.6 mg/dL (8.5-10.1)
[2023-02-07 09:08] LABS: ALBUMIN 2.3 g/dl (3.4-5.0); BLOOD UREA NITROGEN 16.8 mg/dL (7-18); MAGNESIUM 2.1 mg/dL (1.8-2.4)
[2023-02-07 09:11] LABS: CREATININE 0.3 mg/dL (0.55-1.3)
[2023-02-07 09:12] LABS: BILIRUBIN,TOTAL 0.3 mg/dL (0.2-1); TOT PROT 6.7 g/dl (6.4-8.2)
[2023-02-07] MEDS: ZINC SULFATE 220 MG CAPSULE (FP) PO SCH (09:13)
[2023-02-07] MEDS: AMINO ACIDS/PROTEIN HYDROLYS 30 ML LIQUID.PKT PO SCH ×2 (09:13→17:09)
[2023-02-07] MEDS: CEFTRIAXONE 2 GM in DEXTROSE 5%-WATER 100 ML IVPB SCH (09:14)
[2023-02-07] MEDS: NADOLOL 40 MG TABLET (FP) GT SCH (09:14)
[2023-02-07] MEDS: MULTIVITAMINS (DAILY MVI) TABLET (FP) PO SCH (09:14)
[2023-02-07] MEDS: levETIRAcetam 500 MG/5 ML ORAL SOLUTION (UNIT-DOSE CUPS) GT SCH ×2 (09:16→22:06)
[2023-02-07] MEDS: SIMETHICONE 40 MG/0.6 ML BOTTLE GT SCH ×4 (09:16→22:08)
[2023-02-07] MEDS: MIDODRINE HCL 5 MG TABLET GT SCH ×3 (09:17→17:10)
[2023-02-07] MEDS: ENOXAPARIN NA (PORCINE) 40 MG/0.4 ML DISP.SYRIN SQ SCH (09:17)
[2023-02-07] MEDS: ASCORBIC ACID 500 MG/5 ML UNIT DOSE CUP GT SCH (09:17)
[2023-02-07] MEDS: FAMOTIDINE 20 MG/2.5 ML ORAL LIQUID GT SCH ×2 (09:17→22:09)
[2023-02-07] MEDS: oxyCODONE HCL 5 MG TABLET GT PRN ×3 (09:44→22:22)
[2023-02-07] MEDS: MUPIROCIN 2% TOPICAL OINTMENT 22 GM TUBE TP SCH ×2 (13:38→21:21)
[2023-02-07] MEDS: MELATONIN 5 MG, MELATONIN 4 MG GT SCH (21:17)
[2023-02-07] MEDS: metroNIDAZOLE 250 MG TABLET GT SCH (22:06)
[2023-02-07] MEDS: CEFUROXIME AXETIL 500 MG TABLET PO SCH (22:07)
[2023-02-08] MEDS: metroNIDAZOLE 250 MG TABLET GT SCH ×3 (05:09→21:34)
[2023-02-08] MEDS: oxyCODONE HCL 5 MG TABLET GT PRN ×3 (05:09→21:32)
[2023-02-08] MEDS: NYSTATIN 500,000 UNITS/5 ML SUSPENSION PO SCH ×3 (05:09→17:28)
[2023-02-08] MEDS: BANATROL PLUS POWDER PACKET PO SCH ×3 (05:09→21:32)
[2023-02-08] MEDS: AMINO ACIDS/PROTEIN HYDROLYS 30 ML LIQUID.PKT PO SCH ×2 (08:35→17:28)
[2023-02-08] MEDS: MULTIVITAMINS (DAILY MVI) TABLET (FP) PO SCH (11:05)
[2023-02-08] MEDS: MIDODRINE HCL 5 MG TABLET GT SCH ×3 (11:05→17:28)
[2023-02-08] MEDS: NADOLOL 40 MG TABLET (FP) GT SCH (11:05)
[2023-02-08] MEDS: ZINC SULFATE 220 MG CAPSULE (FP) PO SCH (11:05)
[2023-02-08] MEDS: ENOXAPARIN NA (PORCINE) 40 MG/0.4 ML DISP.SYRIN SQ SCH (11:06)
[2023-02-08] MEDS: CEFUROXIME AXETIL 500 MG TABLET PO SCH ×2 (11:06→21:48)
[2023-02-08] MEDS: levETIRAcetam 500 MG/5 ML ORAL SOLUTION (UNIT-DOSE CUPS) GT SCH ×2 (11:06→21:31)
[2023-02-08] MEDS: FAMOTIDINE 20 MG/2.5 ML ORAL LIQUID GT SCH ×2 (11:07→21:48)
[2023-02-08] MEDS: ASCORBIC ACID 500 MG/5 ML UNIT DOSE CUP GT SCH (11:08)
[2023-02-08] MEDS: SIMETHICONE 40 MG/0.6 ML BOTTLE GT SCH ×4 (11:08→21:49)
[2023-02-08] MEDS: MUPIROCIN 2% TOPICAL OINTMENT 22 GM TUBE TP SCH ×2 (12:49→21:41)
[2023-02-08] MEDS: MELATONIN 5 MG, MELATONIN 4 MG GT SCH (22:57)
[2023-02-09] MEDS: NYSTATIN 500,000 UNITS/5 ML SUSPENSION PO SCH ×4 (00:28→17:46)
[2023-02-09] MEDS: metroNIDAZOLE 250 MG TABLET GT SCH ×3 (06:28→22:48)
[2023-02-09] MEDS: BANATROL PLUS POWDER PACKET PO SCH ×3 (06:29→22:47)
[2023-02-09] MEDS: AMINO ACIDS/PROTEIN HYDROLYS 30 ML LIQUID.PKT PO SCH ×2 (08:30→17:46)
[2023-02-09] MEDS: ZINC SULFATE 220 MG CAPSULE (FP) PO SCH (09:18)
[2023-02-09] MEDS: CEFUROXIME AXETIL 500 MG TABLET PO SCH ×2 (09:18→22:48)
[2023-02-09] MEDS: MULTIVITAMINS (DAILY MVI) TABLET (FP) PO SCH (09:19)
[2023-02-09] MEDS: levETIRAcetam 500 MG/5 ML ORAL SOLUTION (UNIT-DOSE CUPS) GT SCH ×2 (09:20→22:47)
[2023-02-09] MEDS: NADOLOL 40 MG TABLET (FP) GT SCH (09:20)
[2023-02-09] MEDS: MIDODRINE HCL 5 MG TABLET GT SCH ×3 (09:22→17:47)
[2023-02-09] MEDS: FAMOTIDINE 20 MG/2.5 ML ORAL LIQUID GT SCH ×2 (09:22→22:49)
[2023-02-09] MEDS: ASCORBIC ACID 500 MG/5 ML UNIT DOSE CUP GT SCH (09:22)
[2023-02-09] MEDS: SIMETHICONE 40 MG/0.6 ML BOTTLE GT SCH ×4 (09:22→22:55)
[2023-02-09] MEDS: MUPIROCIN 2% TOPICAL OINTMENT 22 GM TUBE TP SCH (09:23)
[2023-02-09] MEDS: ENOXAPARIN NA (PORCINE) 40 MG/0.4 ML DISP.SYRIN SQ SCH (09:23)
[2023-02-09] MEDS ORDERED: COLLAGENASE CLOSTRIDIUM HIST. 30 GRAMS TUBE TP SCH (10:00)
[2023-02-09] MEDS: oxyCODONE HCL 5 MG TABLET GT PRN ×2 (13:25→19:54)
[2023-02-09] MEDS: COLLAGENASE CLOSTRIDIUM HIST. 30 GRAMS TUBE TP SCH (17:47)
[2023-02-09] MEDS: MELATONIN 5 MG, MELATONIN 4 MG GT SCH (22:47)
[2023-02-10] MEDS: NYSTATIN 500,000 UNITS/5 ML SUSPENSION PO SCH ×4 (00:09→17:36)
[2023-02-10] MEDS: oxyCODONE HCL 5 MG TABLET GT PRN ×3 (00:09→21:45)
[2023-02-10] MEDS: BANATROL PLUS POWDER PACKET PO SCH ×3 (06:15→21:33)
[2023-02-10] MEDS: metroNIDAZOLE 250 MG TABLET GT SCH ×3 (06:15→21:33)
[2023-02-10 09:30] LABS: BASO % 1.7 % (0-2.0); EOS % 2.3 % (0-4.5); HEMATOCRIT 31.2 % (35.4-49); HEMOGLOBIN 10.3 GM/dL (11.7-16.9); LYMPH % 9.1 % (8-40); MCH 28.3 pg (25.7-33.7); MEAN CELL VOLUME 85.8 fl (80-96); MEAN PLT VOLUME 7.8 fl (7.5-11.1); NEUT % 73.9 % (42.8-82.8); PLATELET COUNT 455 10^3/uL (134-434); RBC 3.64 M/mm3 (4.00-5.60); RDW 19.6 % (11.9-15.9); WHITE BLOOD COUNT 6.9 K/mm3 (4.0-10.0)
[2023-02-10] MEDS: levETIRAcetam 500 MG/5 ML ORAL SOLUTION (UNIT-DOSE CUPS) GT SCH ×2 (09:42→21:32)
[2023-02-10] MEDS: MULTIVITAMINS (DAILY MVI) TABLET (FP) PO SCH (09:43)
[2023-02-10] MEDS: ZINC SULFATE 220 MG CAPSULE (FP) PO SCH (09:43)
[2023-02-10] MEDS: NADOLOL 40 MG TABLET (FP) GT SCH (09:43)
[2023-02-10] MEDS: MIDODRINE HCL 5 MG TABLET GT SCH ×3 (09:44→17:36)
[2023-02-10] MEDS: AMINO ACIDS/PROTEIN HYDROLYS 30 ML LIQUID.PKT PO SCH ×2 (09:44→17:45)
[2023-02-10] MEDS: ENOXAPARIN NA (PORCINE) 40 MG/0.4 ML DISP.SYRIN SQ SCH (09:44)
[2023-02-10] MEDS: CEFUROXIME AXETIL 500 MG TABLET PO SCH ×2 (09:45→21:33)
[2023-02-10] MEDS: ASCORBIC ACID 500 MG/5 ML UNIT DOSE CUP GT SCH (09:45)
[2023-02-10] MEDS: SIMETHICONE 40 MG/0.6 ML BOTTLE GT SCH ×4 (09:48→21:34)
[2023-02-10 09:56] LABS: POTASSIUM 4.6 mmol/L (3.5-5.1)
[2023-02-10 10:05] LABS: CALCIUM 8.9 mg/dL (8.5-10.1)
[2023-02-10 10:06] LABS: ALBUMIN 2.5 g/dl (3.4-5.0)
[2023-02-10 10:09] LABS: CREATININE 0.4 mg/dL (0.55-1.3)
[2023-02-10 10:11] LABS: TOT PROT 7.1 g/dl (6.4-8.2)
[2023-02-10 10:15] LABS: BILIRUBIN,TOTAL 0.4 mg/dL (0.2-1)
[2023-02-10] MEDS: FAMOTIDINE 20 MG/2.5 ML ORAL LIQUID GT SCH ×2 (11:19→21:35)
[2023-02-10] MEDS: COLLAGENASE CLOSTRIDIUM HIST. 30 GRAMS TUBE TP SCH (11:24)
[2023-02-10] MEDS: MELATONIN 5 MG, MELATONIN 4 MG GT SCH (21:34)
[2023-02-11] MEDS: NYSTATIN 500,000 UNITS/5 ML SUSPENSION PO SCH ×4 (00:54→18:04)
[2023-02-11] MEDS: BANATROL PLUS POWDER PACKET PO SCH ×2 (06:39→14:19)
[2023-02-11] MEDS: metroNIDAZOLE 250 MG TABLET GT SCH ×2 (06:41→14:19)
[2023-02-11] MEDS: CEFUROXIME AXETIL 500 MG TABLET PO SCH (11:35)
[2023-02-11] MEDS: AMINO ACIDS/PROTEIN HYDROLYS 30 ML LIQUID.PKT PO SCH ×2 (11:35→18:04)
[2023-02-11] MEDS: levETIRAcetam 500 MG/5 ML ORAL SOLUTION (UNIT-DOSE CUPS) GT SCH (11:36)
[2023-02-11] MEDS: NADOLOL 40 MG TABLET (FP) GT SCH (11:36)
[2023-02-11] MEDS: SIMETHICONE 40 MG/0.6 ML BOTTLE GT SCH ×3 (11:37→18:48)
[2023-02-11] MEDS: ZINC SULFATE 220 MG CAPSULE (FP) PO SCH (11:38)
[2023-02-11] MEDS: MULTIVITAMINS (DAILY MVI) TABLET (FP) PO SCH (11:38)
[2023-02-11] MEDS: FAMOTIDINE 20 MG/2.5 ML ORAL LIQUID GT SCH (11:38)
[2023-02-11] MEDS: oxyCODONE HCL 5 MG TABLET GT PRN ×2 (11:39→18:05)
[2023-02-11] MEDS: ASCORBIC ACID 500 MG/5 ML UNIT DOSE CUP GT SCH (11:39)
[2023-02-11] MEDS: COLLAGENASE CLOSTRIDIUM HIST. 30 GRAMS TUBE TP SCH (11:54)
[2023-02-11] MEDS: MIDODRINE HCL 5 MG TABLET GT SCH ×3 (14:18→18:08)
[2023-02-11 14:34] VITALS: PULSE 104
[2023-02-11 18:10] VITALS: BP 132/91; RESP 17; TEMP 98.7
== END 2023-02-11 19:50 | DRG 371 ==
LOC: JER 11:16 → JERBED 18:03 → J8W 20:13
PROVIDERS: ADMIT Internal Medicine; ATTEND Nurse Practitioner Acute Care
PROC: 0W9G30Z Drainage of Peritoneal Cavity with Drainage Device, Percutaneous Approach (ICD-10-PCS; principal; 2023-01-29)
DX: K65.1 Peritoneal abscess (principal); E43 Unspecified severe protein-calorie malnutrition; L02.211 Cutaneous abscess of abdominal wall; C18.9 Malignant neoplasm of colon, unspecified; Z68.1 Body mass index [BMI] 19.9 or less, adult; R64 Cachexia; I48.91 Unspecified atrial fibrillation; Z93.1 Gastrostomy status; Z93.0 Tracheostomy status; L98.429 Non-pressure chronic ulcer of back with unspecified severity; R56.9 Unspecified convulsions; Z93.3 Colostomy status
CPT/HCPCS: 0241U-QW; 36415; 49406; 49424; 74177-TC; 76080-TC-FY; 80048; 80053; 82962; 83735; 85025; 85610; 86850; 86900; 86901; 87040; 87070; 87075; 87102; 87116; 87186; 87205; 87206; 87210; 87635; 88108; 88305-TC; 93005; 93010; 97161-GP; 99285-25; G0480; Q9967